=== PATIENT | female | born 1980 | race African-American/Black ===

== ENCOUNTER 2016-10-08 18:47 | Emergency (ER) | payer MEDICAID ==
--- NOTE | 2016-10-08 19:58 | ER Document Report ---
ED Medical Screen (RME) - General Chief Complaint: Sore Throat Stated Complaint: SORE THROAT Time seen by provider: 19:56 Mode of Arrival: Ambulatory Information source: Patient Notes: 36-year-old female presents to ED for sore throat fevers. States she's coughed up a lot of phlegm. Lungs are clear pulses regular.. I have greeted and performed a rapid initial assessment of this patient. A comprehensive ED assessment and evaluation of the patient, analysis of test results and completion of medical decision making process will be conducted by an additional ED providers. TRAVEL OUTSIDE OF THE [place] IN LAST 30 DAYS: No - Related Data Allergies/Adverse Reactions: No Known Allergies Allergy (Verified 08/20/16 17:57) Past Medical History Endocrine Medical History: Reports: Hx Diabetes Mellitus Type 2 - Gestational Musculoskeltal Medical History: Reports Hx Musculoskeletal Trauma - hip pelvic femur coccyx fracture Psychiatric Medical History: Reports: Hx Anxiety, Hx Depression Traumatic Medical History: Reports: Hx Fractures - hip pelvic femur coccyx Past Surgical History: Reports: Hx Section - Immunizations Immunizations up to date: Yes Hx Diphtheria, Pertussis, Tetanus Vaccination: Yes Physical Exam - Vital signs Vitals: Temp Pulse Resp BP Pulse Ox 98.1 F 85 16 141/89 H 98 10/08/16 19:40 10/08/16 19:40 10/08/16 19:40 10/08/16 19:40 10/08/16 19:40 Course - Vital Signs Vital signs: Temp Pulse Resp BP Pulse Ox 98.1 F 85 16 141/89 H 98 10/08/16 19:40 10/08/16 19:40 10/08/16 19:40 10/08/16 19:40 10/08/16 19:40
--- NOTE | 2016-10-08 22:33 | ER Document Report ---
HPI - HPI Patient complains to provider of: sore throat, myalgias Onset: Yesterday Onset/Duration: Gradual Quality of pain: Achy Pain Level: 3 Context: 36 yo female with sore throat, myalgias, fever. Rapid strept from triage is positive. Associated Symptoms: None Exacerbated by: Denies Relieved by: Denies Similar symptoms previously: Yes Recently seen / treated by doctor: No - ROS ROS below otherwise negative: Yes Systems Reviewed and Negative: Yes All other systems reviewed and negative - REPRODUCTIVE LMP: 10-06-16 Reproductive: DENIES: : - DERM Skin Color: Normal Past Medical History - General Information source: Patient - Social History Smoking Status: Current Every Day Smoker Chew tobacco use (# tins/day): No Frequency of alcohol use: Occasional Drug Abuse: None Lives with: Family Family History: Arthritis, CVA, Hyperlipidemia Patient has suicidal ideation: No Patient has homicidal ideation: No Endocrine Medical History: Reports: Hx Diabetes Mellitus Type 2 - Gestational Renal/ Medical History: Denies: Hx Peritoneal Dialysis Musculoskeltal Medical History: Reports Hx Musculoskeletal Trauma - hip pelvic femur coccyx fracture Psychiatric Medical History: Reports: Hx Anxiety, Hx Depression Traumatic Medical History: Reports: Hx Fractures - hip pelvic femur coccyx Past Surgical History: Reports: Hx Section - Immunizations Immunizations up to date: Yes Hx Diphtheria, Pertussis, Tetanus Vaccination: Yes Vertical Provider Document - CONSTITUTIONAL Agree With Documented VS: Yes Exam Limitations: No Limitations General Appearance: No Apparent Distress - INFECTION CONTROL TRAVEL OUTSIDE OF THE [place] IN LAST 30 DAYS: No - HEENT HEENT: Normocephalic, Pharyngeal Erythema. negative: Conjuctival Injection, Tympanic Membrane Red, Tympanic Membrane Bulging - NECK Neck: Supple. negative: Lymphadenopathy-Left, Lymphadenopathy-Right - RESPIRATORY Respiratory: Breath Sounds Normal, No Respiratory Distress O2 Sat by Pulse Oximetry: 98 - CARDIOVASCULAR Cardiovascular: Regular Rate, Regular Rhythm - GI/ABDOMEN Gastrointestinal: Abdomen Soft, Abdomen Non-Tender, No Organomegaly - MUSCULOSKELETAL/EXTREMETIES Musculoskeletal/Extremeties: ANU PEÑA - NEURO Level of Consciousness: Awake, Alert - DERM Integumentary: Warm, Dry, No Rash Course - Re-evaluation Re-evalutation: 10/08/16 22:39 vitals stable at discharge/. - Vital Signs Vital signs: Temp Pulse Resp BP Pulse Ox 98.1 F 85 16 141/89 H 98 10/08/16 19:40 10/08/16 19:40 10/08/16 19:40 10/08/16 19:40 10/08/16 19:40 Discharge - Discharge Clinical Impression: Streptococcal sore throat, Myalgia Condition: Good Disposition: HOME, SELF-CARE Instructions: Penicillin V K ([facility]), Strep Throat ([facility]), Stop Smoking ([facility]) Additional Instructions: quit smoking take the antibiotics until they are gone drink plenty of fluids tylenol for aches, fever to er if worse see [facility] for follow up Prescriptions: Penicillin V Potassium [Penicillin Vk 500 mg Tablet] 500 mg PO TID #30 tablet
[2016-10-08] MEDS ORDERED: PENICILLIN V POTASSIUM 500 MG TABLET PO ONE (22:40)
[2016-10-08 22:41] VITALS: BP 138/83
== END 2016-10-08 23:11 | disposition home or self-care (01) ==
LOC: ER 18:47
DX: J02.0 Streptococcal pharyngitis (principal); M79.1 Myalgia; R50.9 Fever, unspecified; F17.200 Nicotine dependence, unspecified, uncomplicated
CPT/HCPCS: 99283; 87880; J3490

== ENCOUNTER 2016-12-16 15:19 | Emergency (ER) | payer MEDICAID, OTHER ==
[2016-12-16] MEDS ORDERED: IBUPROFEN 800 MG TABLET PO ONE (17:35)
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
[2016-12-16 18:16] VITALS: BP 133/80
== END 2016-12-16 18:14 | disposition home or self-care (01) ==
LOC: ER 15:19
DX: M54.2 Cervicalgia (principal); R03.0 Elevated blood-pressure reading, without diagnosis of hypertension; R51 Headache; M54.9 Dorsalgia, unspecified; V87.7XXA Person injured in collision between other specified motor vehicles (traffic), initial encounter; F17.210 Nicotine dependence, cigarettes, uncomplicated
CPT/HCPCS: 99283; J3490

== ENCOUNTER 2017-01-25 23:45 | Emergency (ER) | payer MEDICAID | END 2017-01-25 23:51 | disposition left against medical advice (07) | LOC: ER 23:45 | DX: Z53.21 Procedure and treatment not carried out due to patient leaving prior to being seen by health care provider (principal) ==

== ENCOUNTER 2017-01-27 13:32 | Emergency (ER) | payer MEDICAID ==
[2017-01-27] MEDS ORDERED: BUPIVACAINE HCL 0.5 % INJ/PF 30 ML SDV INJ ONE (14:33)
--- NOTE | 2017-01-27 15:09 | ER Document Report ---
HPI - HPI Patient complains to provider of: jaw pain Pain Level: 5 Context: There is a 36-year-old female presents emergency department complaining of jaw pain. Patient had 3 wisdom teeth removed today complaining of severe jaw pain. Patient states that she was not sent home with any narcotic pain medication and was told to take Motrin [id number]. Patient states that as the numbing medication is wearing oxygen experiencing severe pain in the upper left aspect of her left jaw. She states she called her dentist office who said that they could not call her in any pain medications but would be able to see her tomorrow at 3 PM. teeth numbers 16, 17, and 32 were pulled. - REPRODUCTIVE LMP: 01/04/17 Reproductive: DENIES: : - DERM Skin Color: Normal Past Medical History - Social History Smoking Status: Current Every Day Smoker Chew tobacco use (# tins/day): No Frequency of alcohol use: Rare Drug Abuse: None Family History: Arthritis, CVA, Hyperlipidemia Patient has suicidal ideation: No Patient has homicidal ideation: No Endocrine Medical History: Reports: Hx Diabetes Mellitus Type 2 - Gestational Renal/ Medical History: Denies: Hx Peritoneal Dialysis Musculoskeltal Medical History: Reports Hx Musculoskeletal Trauma - hip pelvic femur coccyx fracture Psychiatric Medical History: Reports: Hx Anxiety, Hx Depression Traumatic Medical History: Reports: Hx Fractures - hip pelvic femur coccyx Past Surgical History: Reports: Hx Section - Immunizations Immunizations up to date: Yes Hx Diphtheria, Pertussis, Tetanus Vaccination: Yes Vertical Provider Document - CONSTITUTIONAL Agree With Documented VS: Yes Exam Limitations: No Limitations General Appearance: WD/WN, No Apparent Distress - INFECTION CONTROL TRAVEL OUTSIDE OF THE [place] IN LAST 30 DAYS: No - HEENT HEENT: Atraumatic, Normocephalic, PERRLA Mouth Diagram: 1 - socket without bleeding, clot intact no evidence of pus. 2 - socket without bleeding, clot intact no evidence of pus. 3 - socket without bleeding, clot intact no evidence of pus. Notes: Uvula midline. Airway patent. No evidence of tonsillar enlargement, peritonsillar abscess, retropharyngeal abscess. - NECK Neck: Normal Inspection, Other - No evidence of Yosvany's angina. negative: Lymphadenopathy-Left, Lymphadenopathy-Right - RESPIRATORY Respiratory: Breath Sounds Normal, No Respiratory Distress, Chest Non-Tender O2 Sat by Pulse Oximetry: 97 - CARDIOVASCULAR Cardiovascular: Regular Rate, Regular Rhythm, No Murmur - NEURO Level of Consciousness: Awake, Alert, Appropriate Motor/Sensory: No Motor Deficit, No Sensory Deficit - DERM Integumentary: Warm, Dry, No Rash Course - Re-evaluation Re-evalutation: 01/27/17 16:40 Patient is a 36-year-old female who is hemodynamic stable, mild distress and afebrile. Patient received a 2 cc Sensorcaine block with resolution of her symptoms. No complications. Patient discharged home with Motrin and will follow up with dentist tomorrow - Vital Signs Vital signs: Temp Pulse Resp BP Pulse Ox 98.3 F 99 18 124/79 97 01/27/17 13:45 01/27/17 13:45 01/27/17 13:45 01/27/17 13:45 01/27/17 13:45 Procedures - Additional Procedures dental block Additional Procedures: Other - dental block: left upper jaw infraalveolar block , 2cc sensorcaine with complete resolution of her symptoms, no complications Discharge - Discharge Clinical Impression: Jaw pain Condition: Good Disposition: HOME, SELF-CARE Additional Instructions: Please be sure to follow up with your dentist tomorrow Take medication as prescribed Prescriptions: Tramadol HCl 50 mg PO Q6HP PRN #5 tablet PRN Reason: Ibuprofen [Motrin 800 mg Tablet] 800 mg PO Q8H PRN #15 tab PRN Reason: Referrals: CESILIA MENDOSA MD [Primary Care Provider] - Follow up as needed
[2017-01-27 15:15] VITALS: BP 128/72
== END 2017-01-27 15:10 | disposition home or self-care (01) ==
LOC: ER 13:32
PROC: 3E0T3BZ Introduction of Anesthetic Agent into Peripheral Nerves and Plexi, Percutaneous Approach (ICD-10-PCS; principal; 2017-01-27)
DX: R68.84 Jaw pain (principal); F17.200 Nicotine dependence, unspecified, uncomplicated; Z98.818 Other dental procedure status
CPT/HCPCS: 99282

== ENCOUNTER 2017-03-23 18:48 | Emergency (ER) | payer MEDICAID ==
--- NOTE | 2017-03-23 19:47 | ER Document Report ---
HPI - HPI Patient complains to provider of: Sore throat, urinary frequency, ear pain Onset: Other - Several days Onset/Duration: Sudden Pain Level: 0 Context: 36-year-old female complaining of sore throat for several days, urinary frequency, pain behind her right ear. She saw her primary care doctor who told her to take Robitussin that she had a upper respiratory infection. She has been told in the past that she needed a tonsillectomy.. No chest pain shortness of breath or cough. No abdominal pain. No dysuria. Associated Symptoms: None Exacerbated by: Denies Relieved by: Denies Similar symptoms previously: No Recently seen / treated by doctor: No - ROS ROS below otherwise negative: Yes Systems Reviewed and Negative: Yes All other systems reviewed and negative - REPRODUCTIVE Reproductive: DENIES: : - DERM Skin Color: Normal Past Medical History - General Information source: Patient - Social History Smoking Status: Current Every Day Smoker Frequency of alcohol use: None Drug Abuse: None Lives with: Family Family History: Arthritis, CVA, Hyperlipidemia Patient has suicidal ideation: No Patient has homicidal ideation: No - Medical History Medical History: Negative Endocrine Medical History: Reports: Hx Diabetes Mellitus Type 2 - Gestational Renal/ Medical History: Denies: Hx Peritoneal Dialysis Musculoskeltal Medical History: Reports Hx Musculoskeletal Trauma - hip pelvic femur coccyx fracture Psychiatric Medical History: Reports: Hx Anxiety, Hx Depression Traumatic Medical History: Reports: Hx Fractures - hip pelvic femur coccyx Past Surgical History: Reports: Hx Section - Immunizations Immunizations up to date: Yes Hx Diphtheria, Pertussis, Tetanus Vaccination: Yes Vertical Provider Document - CONSTITUTIONAL Agree With Documented VS: Yes Exam Limitations: No Limitations General Appearance: No Apparent Distress - INFECTION CONTROL TRAVEL OUTSIDE OF THE [place] IN LAST 30 DAYS: No - HEENT HEENT: Atraumatic, Pharyngeal Erythema. negative: Conjuctival Injection, Tympanic Membrane Red, Tympanic Membrane Bulging Notes: external ear non tender - NECK Neck: Supple. negative: Lymphadenopathy-Left, Lymphadenopathy-Right - RESPIRATORY Respiratory: Breath Sounds Normal, No Respiratory Distress O2 Sat by Pulse Oximetry: 99 - CARDIOVASCULAR Cardiovascular: Regular Rate, Regular Rhythm - GI/ABDOMEN Gastrointestinal: Abdomen Soft, Abdomen Non-Tender, No Organomegaly - MUSCULOSKELETAL/EXTREMETIES Musculoskeletal/Extremeties: ANU PEÑA - NEURO Level of Consciousness: Awake, Alert, Appropriate - DERM Integumentary: Warm, Dry, No Rash Course - Re-evaluation Re-evalutation: 03/23/17 20:17 wbc in urine, trace bacteria, culture pending, throat culture pending - Vital Signs Vital signs: Temp Pulse Resp BP Pulse Ox 98.2 F 98 18 122/77 99 03/23/17 18:51 03/23/17 18:51 03/23/17 18:51 03/23/17 18:51 03/23/17 18:51 Discharge - Discharge Clinical Impression: Sore throat, Urinary tract infection Condition: Good Disposition: HOME, SELF-CARE Instructions: Sore Throat ([facility]), Urinary Tract Infection ([facility]), Cephalexin ([facility] ) Additional Instructions: plenty of fluids to er if worse urine culture pending throat culture is pending Please complete the patient satisfaction survey if you get one, and return it.. If you do not receive a survey, then you can go to the [facility] website, [email or web address] and place your comments about your very good care. Thank you very much. It was a pleasure being your medical provider today. Prescriptions: Cephalexin Monohydrate [Keflex 500 mg Capsule] 500 mg PO QID #40 capsule Referrals: CESILIA MENDOSA MD [Primary Care Provider] - Follow up in 3-5 days
[2017-03-23 20:12] LABS: APPEARANCE,URINE CLOUDY; BILIRUBIN,URINE NEGATIVE (NEGATIVE); GLUCOSE, URINE NEGATIVE (NEGATIVE); KETONES,URINE NEGATIVE (NEGATIVE); LEUKOCYTE ESTERASE,URINE LARGE (NEGATIVE); NITRITE,URINE NEGATIVE (NEGATIVE); PROTEIN,URINE NEGATIVE (NEGATIVE); URINE SPECIFIC GRAVITY 1.024; UROBILINOGEN,URINE NEGATIVE mg/dL (<2.0)
[2017-03-23 20:25] VITALS: BP 120/83
== END 2017-03-23 20:25 | disposition home or self-care (01) ==
LOC: ER 18:48
DX: J02.9 Acute pharyngitis, unspecified (principal); N39.0 Urinary tract infection, site not specified; R35.0 Frequency of micturition; F17.200 Nicotine dependence, unspecified, uncomplicated; H92.01 Otalgia, right ear
CPT/HCPCS: 81001; 87070; 87086; 87088; 99283

== ENCOUNTER 2017-03-28 11:58 | Emergency (ER) | payer MEDICAID ==
[2017-03-28 12:16] VITALS: BP 136/99
[2017-03-28] MEDS ORDERED: CIPROFLOXACIN HCL/DEXAMETH OTIC DROP 7.5 ML AS ONE (12:54)
[2017-03-28] MEDS ORDERED: METHYLPREDNISOLONE INJ 125 MG/2 ML SDV IM ONE (13:03)
--- NOTE | 2017-03-28 13:03 | ER Document Report ---
HPI - HPI Pain Level: 5 Notes: Patient is a 36-year-old female presents the ED complaining of bilateral ear pain and swelling 1 week. Patient was seen about 5 days ago here in the ED and was given Keflex for UTI. Patient states that she was at urgent care yesterday because of ear pain and sore throat and they gave her hydrocodone along with 1 g of Rocephin and a prescription for antibiotics that she was unable to pickle pumper because it was stuck on the computer per patient at the pharmacy late at night. Patient states that she has not noticed any discharge from her ears. The pain does not radiate. She still able to eat and drink without any difficulties, but does have discomfort with swallowing. Denies any drug allergies, daily medications, significant past medical history otherwise. Denies any MRSA history patient admits to smoking but denies any illicit drug use. Denies any recent travel, illness, sick contacts. Denies any fever, headache, nasal congestion/discharge, facial swelling, drooling, chest pain, palpitations, syncope, cough, wheeze, shortness of breath, abdominal pain, nausea/vomiting/diarrhea, dysuria, hematuria, joint pains, numbness/tingling, rash. - ROS Notes: REVIEW OF SYSTEMS: CONSTITUTIONAL : Denies fever, chills, or sweats. Denies recent illness. EENT: see hpi CARDIOVASCULAR: Denies chest pain. Denies palpitations or racing or irregular heart beat. Denies ankle edema. RESPIRATORY: Denies cough, cold, or chest congestion. Denies shortness of breath, difficulty breathing, or wheezing. GASTROINTESTINAL: Denies abdominal pain or distention. Denies nausea, vomiting , or diarrhea. Denies blood in vomitus, stools, or per rectum. Denies black, tarry stools. Denies constipation. GENITOURINARY: Denies difficulty urinating, painful urination, burning, frequency, blood in urine, or discharge. MUSCULOSKELETAL: Denies back or neck pain or stiffness. Denies joint pain or swelling. SKIN: Denies rash, lesions or sores. NEUROLOGICAL: Denies confusion or altered mental status. Denies passing out or loss of consciousness. Denies dizziness or lightheadedness. Denies headache. Denies weakness or paralysis or loss of use of either side. Denies problems with gait or speech. Denies sensory loss, numbness, or tingling. ALL OTHER SYSTEMS REVIEWED AND NEGATIVE. Dictation was performed using [employer] voice recognition software - REPRODUCTIVE Reproductive: DENIES: : - DERM Skin Color: Normal Past Medical History - Social History Smoking Status: Current Every Day Smoker Family History: Arthritis, CVA, Hyperlipidemia Endocrine Medical History: Reports: Hx Diabetes Mellitus Type 2 - Gestational Renal/ Medical History: Denies: Hx Peritoneal Dialysis Musculoskeltal Medical History: Reports Hx Musculoskeletal Trauma - hip pelvic femur coccyx fracture Psychiatric Medical History: Reports: Hx Anxiety, Hx Depression Traumatic Medical History: Reports: Hx Fractures - hip pelvic femur coccyx Past Surgical History: Reports: Hx Section - Immunizations Immunizations up to date: Yes Hx Diphtheria, Pertussis, Tetanus Vaccination: Yes Vertical Provider Document - CONSTITUTIONAL Agree With Documented VS: Yes Notes: PHYSICAL EXAMINATION: GENERAL: Well-appearing, well-nourished and in no acute distress. HEAD: Atraumatic, normocephalic. EYES: Pupils equal round and reactive to light, extraocular movements intact, sclera anicteric, conjunctiva are normal. ENT: B/l EAC swollen with purulent discharge, + tenderness. Unable to visualize TM's b/l. Nares patent and without discharge. oropharynx clear without exudates. 1+ tonsilar hypertrophy with mild erythema, no exudate. Moist mucous membranes. No sinus tenderness. No facial swelling. Uvula midline. No palatine shift or tongue protrusion. NECK: Normal range of motion, supple without lymphadenopathy. No rigidity/ meningismus. LUNGS: Breath sounds clear to auscultation bilaterally and equal. No wheezes rales or rhonchi. HEART: Regular rate and rhythm without murmurs, rubs, gallops. ABDOMEN: Soft, nontender, nondistended abdomen. No guarding, no rebound. No masses appreciated. Normal bowel sounds present. No CVA tenderness bilaterally. No hepatosplenomegaly. Extremities: No cyanosis, clubbing, or edema b/l. Peripheral pulses 2+. Capillary refill less than 3 seconds. NEUROLOGICAL: Cranial nerves grossly intact. Normal speech, normal gait. Normal sensory, motor exams PSYCH: Normal mood, normal affect. SKIN: Warm, Dry, normal turgor, no rashes or lesions noted. - INFECTION CONTROL TRAVEL OUTSIDE OF THE [place] IN LAST 30 DAYS: No - RESPIRATORY O2 Sat by Pulse Oximetry: 99 Course - Re-evaluation Re-evalutation: 03/28/17 13:30 Patient is an afebrile, well-hydrated, 36-year-old female presents the ED with acute bilateral otitis externa along with acute strep pharyngitis. Vitals are stable. PE otherwise unremarkable. Low suspicion for any retropharyngeal/ peritonsillar abscess, meningitis, airway compromise, leona's, mastoiditis, intracranial hemorrhage, or other emergent systemic infection at this time. Wick placement and Ciprodex was applied bilaterally. Solumedrol 125mg given IM today. Rapid strep was positive. I will send her home with Amoxicillin 875mg PO BID x10 days (will help cover the ears as well). Conservative measures for symptoms otherwise. Use drops as directed. Recheck with your PCM this week. Consider consult with ENT for ongoing/worsening symptoms. Return to the ED with any worsening/concerning symptoms otherwise as reviewed in discharge. Patient is in agreement. - Vital Signs Vital signs: Temp Pulse Resp BP Pulse Ox 97.7 F 96 136/99 H 99 03/28/17 12:15 03/28/17 12:15 03/28/17 12:15 03/28/17 12:15 Discharge - Discharge Clinical Impression: Strep pharyngitis Acute otitis externa of both ears Qualifiers: Otitis externa type: unspecified type Qualified Code(s): H60.503 - Unspecified acute noninfective otitis externa, bilateral Condition: Stable Disposition: HOME, SELF-CARE Instructions: Acetaminophen, Use of Ear Drops ([facility]), Using Ear Drops with a Wick ([facility]), Otitis Externa ([facility]), Strep Throat ([facility]) Additional Instructions: Maintain adequate fluid intake Take/use meds as directed tylenol/ibuprofen as needed over the counter cold medication as needed for symptoms avoid putting q-tips/fingers in ears F/u: with your PCM in 2-3 days for a recheck Consider consult with ENT for ongoing/worsening symptoms Return to the ED with any worsening symptoms and/or development of fever, headache, facial swelling, swelling of lips/tongue/throat, trouble swallowing, chest pain, palpitations, syncope, shortness of breath, trouble breathing, abdominal pain, n/v/d, numbness/tingling, or other worsening symptoms that are concerning to you. [facility] [place] Address: [address] [place] [address] Prescriptions: Amoxicillin Trihydrate [Amoxil 875 mg Tablet] 1 tab PO BID #20 tablet Forms: Elevated Blood Pressure, Smoking Cessation Education Referrals: VANITA JAEGER MD [ACTIVE STAFF] - Follow up as needed CESILIA MENDOSA MD [Primary Care Provider] - Follow up in 3-5 days
== END 2017-03-28 13:40 | disposition home or self-care (01) ==
LOC: ER 11:58
DX: J02.0 Streptococcal pharyngitis (principal); H60.503 Unspecified acute noninfective otitis externa, bilateral; F17.200 Nicotine dependence, unspecified, uncomplicated
CPT/HCPCS: 99283; 96372; 87880; J2930; J3490

== ENCOUNTER 2017-05-18 13:41 | Emergency (ER) | payer MEDICAID ==
--- NOTE | 2017-05-18 14:30 | ER Document Report ---
HPI - HPI Patient complains to provider of: sinus pain and nose drainage Onset: Other - 2 weeks Onset/Duration: Gradual, Persistent Pain Level: 2 Context: 37-year-old female complaining of increased sinus pressure along the maxillary sinuses with yellow-green nasal discharge for 2 weeks. She was on Ceftin near several weeks ago which did not help. no chest pain or shortness of breath. No fever. Her ears feel full. Associated Symptoms: None Exacerbated by: Denies Relieved by: Denies Similar symptoms previously: No Recently seen / treated by doctor: No - ROS ROS below otherwise negative: Yes Systems Reviewed and Negative: Yes All other systems reviewed and negative - CARDIOVASCULAR Cardiovascular: DENIES: Chest pain - REPRODUCTIVE Reproductive: DENIES: : - DERM Skin Color: Normal Past Medical History - General Information source: Patient - Social History Smoking Status: Current Every Day Smoker Chew tobacco use (# tins/day): No Frequency of alcohol use: Occasional Drug Abuse: None Family History: Arthritis, CVA, Hyperlipidemia Endocrine Medical History: Reports: Hx Diabetes Mellitus Type 2 - Gestational Renal/ Medical History: Denies: Hx Peritoneal Dialysis Musculoskeltal Medical History: Reports Hx Musculoskeletal Trauma - hip pelvic femur coccyx fracture Psychiatric Medical History: Reports: Hx Anxiety, Hx Depression Traumatic Medical History: Reports: Hx Fractures - hip pelvic femur coccyx Past Surgical History: Reports: Hx Section - Immunizations Immunizations up to date: Yes Hx Diphtheria, Pertussis, Tetanus Vaccination: Yes Vertical Provider Document - CONSTITUTIONAL Agree With Documented VS: Yes Exam Limitations: No Limitations - INFECTION CONTROL TRAVEL OUTSIDE OF THE [place] IN LAST 30 DAYS: No - HEENT HEENT: Normocephalic. negative: Conjuctival Injection, Pharyngeal Erythema, Tympanic Membrane Red, Tympanic Membrane Bulging Notes: boggy nares, no facial swelling - NECK Neck: Supple. negative: Lymphadenopathy-Left, Lymphadenopathy-Right - RESPIRATORY Respiratory: Breath Sounds Normal, No Respiratory Distress O2 Sat by Pulse Oximetry: 100 - CARDIOVASCULAR Cardiovascular: Regular Rate, Regular Rhythm - MUSCULOSKELETAL/EXTREMETIES Musculoskeletal/Extremeties: ANU PEÑA - NEURO Level of Consciousness: Awake, Alert, Appropriate Motor/Sensory: No Motor Deficit, No Sensory Deficit - DERM Integumentary: Warm, Dry Course - Vital Signs Vital signs: Temp Pulse Resp BP Pulse Ox 98.4 F 95 16 122/64 100 05/18/17 14:00 05/18/17 14:00 05/18/17 14:00 05/18/17 14:00 05/18/17 14:00 Discharge - Discharge Clinical Impression: Sinusitis Qualifiers: Sinusitis location: maxillary Chronicity: subacute Qualified Code(s): J01.00 - Acute maxillary sinusitis, unspecified Condition: Good Disposition: HOME, SELF-CARE Instructions: Augmentin ([facility]), ENT, Sinusitis ([facility]) Additional Instructions: get netti pot and use sterile saline to irrigate out sinus STOP SMOKING see ENT doctor for chronic sinus infection to er if worse Please complete the patient satisfaction survey if you get one, and return it.. If you do not receive a survey, then you can go to the [facility] website, [email or web address] and place your comments about your very good care. Thank you very much. It was a pleasure being your medical provider today. Prescriptions: Amox Tr/Potassium Clavulanate [Augmentin 875-125 mg Tablet] 1 tab PO BID #20 tablet
[2017-05-18 15:18] VITALS: BP 122/70
== END 2017-05-18 15:15 | disposition home or self-care (01) ==
LOC: ER 13:41
DX: J01.00 Acute maxillary sinusitis, unspecified (principal); F17.200 Nicotine dependence, unspecified, uncomplicated
CPT/HCPCS: 99283

== ENCOUNTER 2017-07-04 13:57 | Emergency (ER) | payer MEDICAID ==
[2017-07-04 14:08] VITALS: BP 104/74
[2017-07-04] MEDS ORDERED: LIDOCAINE 5% (700 MG) TRANSDERMAL ADH..PATCH TP ONE (15:02)
[2017-07-04] MEDS ORDERED: DEXAMETHASONE SOD PHOS INJ 10 MG/1 ML VIAL IM ONE (15:02)
[2017-07-04] MEDS ORDERED: KETOROLAC TROMETHAMINE INJ/PF 30 MG/1 ML SDV IM ONE (15:02)
--- NOTE | 2017-07-04 15:04 | ER Document Report ---
HPI - HPI Pain Level: 5 Notes: Patient is a 37-year-old female who presents the ED with low back pain 5-7 days without known injury. Patient states that on occasion she will have radiation of the pain into her legs bilaterally. Patient states that most of her pain is midline with some paraspinal pain as well. [facility] ordered for her to get done this week. Patient was also evaluated by an urgent care on Wednesday and was given ibuprofen. Patient states that the ibuprofen has not been helping. Patient states that sitting or standing too long make her pain worse. She has not found a position that helps. Patient denies any IV drug use, injections or procedures to her back, or diabetes. She denies any drug allergies. Patient admits to smoking. Denies any headache, fever, chest pain, palpitations, syncope, cough, shortness of breath, wheeze, dyspnea, abdominal pain, nausea/ vomiting/diarrhea, urinary retention, dysuria, hematuria, loss of control of bowel or bladder, numbness/tingling, saddle anesthesia, muscle paralysis/ weakness, or rash. - ROS Notes: REVIEW OF SYSTEMS: CONSTITUTIONAL : Denies fever, chills, or sweats. Denies recent illness. EENT: Denies eye, ear, throat, or mouth pain or symptoms. Denies nasal or sinus congestion or discharge. Denies throat, tongue, or mouth swelling or difficulty swallowing. CARDIOVASCULAR: Denies chest pain. Denies palpitations or racing or irregular heart beat. Denies ankle edema. RESPIRATORY: Denies cough, cold, or chest congestion. Denies shortness of breath, difficulty breathing, or wheezing. GASTROINTESTINAL: Denies abdominal pain or distention. Denies nausea, vomiting , or diarrhea. Denies blood in vomitus, stools, or per rectum. Denies black, tarry stools. Denies constipation. GENITOURINARY: Denies difficulty urinating, painful urination, burning, frequency, blood in urine, or discharge. MUSCULOSKELETAL: see hpi SKIN: Denies rash, lesions or sores. NEUROLOGICAL: Denies confusion or altered mental status. Denies passing out or loss of consciousness. Denies dizziness or lightheadedness. Denies headache. Denies weakness or paralysis or loss of use of either side. Denies problems with gait or speech. Denies sensory loss, numbness, or tingling. ALL OTHER SYSTEMS REVIEWED AND NEGATIVE. Dictation was performed using [employer] voice recognition software - REPRODUCTIVE Reproductive: DENIES: : - DERM Skin Color: Normal Past Medical History - Social History Smoking Status: Current Every Day Smoker Family History: Arthritis, CVA, Hyperlipidemia Patient has suicidal ideation: No Patient has homicidal ideation: No Endocrine Medical History: Reports: Hx Diabetes Mellitus Type 2 - Gestational Renal/ Medical History: Denies: Hx Peritoneal Dialysis Musculoskeltal Medical History: Reports Hx Musculoskeletal Trauma - hip pelvic femur coccyx fracture Psychiatric Medical History: Reports: Hx Anxiety, Hx Depression Traumatic Medical History: Reports: Hx Fractures - hip pelvic femur coccyx Past Surgical History: Reports: Hx Section - Immunizations Immunizations up to date: Yes Hx Diphtheria, Pertussis, Tetanus Vaccination: Yes Vertical Provider Document - CONSTITUTIONAL Agree With Documented VS: Yes Notes: PHYSICAL EXAMINATION: GENERAL: Well-appearing, well-nourished and in no acute distress. LUNGS: Breath sounds clear to auscultation bilaterally and equal. No wheezes rales or rhonchi. HEART: Regular rate and rhythm without murmurs, rubs, gallops. ABDOMEN: Soft, nontender, nondistended abdomen. No guarding, no rebound. No masses appreciated. Normal bowel sounds present. No CVA tenderness bilaterally. No pulsatile mass. Musculoskeletal: Ext b/l: FROM to passive/active. Strength 5+/5. No deficits noted. Back: FROM to passive/active. Strength 5+/5. No stepoffs, or deformities. No other bony tenderness or ecchymosis. SLR negative b/l. + L-paraspinal mm tenderness with mild spasming. + mild midline/facet tenderness near L4. Extremities: No cyanosis, clubbing, or edema b/l. Peripheral pulses 2+. Capillary refill less than 2 seconds. NEUROLOGICAL: Normal speech, normal gait. Normal sensory, motor exams. Reflexes 2+ b/l. PSYCH: Normal mood, normal affect. SKIN: Warm, Dry, normal turgor, no rashes or lesions noted. - INFECTION CONTROL TRAVEL OUTSIDE OF THE [place] IN LAST 30 DAYS: No - RESPIRATORY O2 Sat by Pulse Oximetry: 98 Course - Re-evaluation Re-evalutation: 07/04/17 15:42 Patient is an afebrile, well-hydrated, 37-year-old female who presents the ED with low back pain, suspect strain versus sprain at this time. Vitals are stable. PE is otherwise unremarkable for any focal neurological deficits. X- ray was also unremarkable for any acute pathology. Decadron 10 mg, Toradol 30 mg, and a Lidoderm patch was applied today. Low suspicion for any meningitis, fracture, expanding/ruptured AAA, cauda equina syndrome, epidural mass lesion/ abscess, herniated disc causing severe spinal stenosis, or other systemic infection at this time. Patient is aware that her condition can change from initial presentation and that she needs monitor symptoms closely for any acute changes. I will send her home with a prescription for naproxen and baclofen to take as directed. Conservative measures for symptoms otherwise. Recheck with your PCM in 3-5 days. Consider consult with orthopedics and physical therapy. Return to the ED with any worsening/concerning symptoms otherwise as reviewed in discharge. Patient is in agreement. - Vital Signs Vital signs: Temp Pulse Resp BP Pulse Ox 97.9 F 99 16 104/74 98 07/04/17 14:04 07/04/17 14:04 07/04/17 14:04 07/04/17 14:04 07/04/17 14:04 Discharge - Discharge Clinical Impression: Low back pain Qualifiers: Chronicity: acute Back pain laterality: unspecified Sciatica presence: unspecified whether sciatica present Qualified Code(s): M54.5 - Low back pain Condition: Stable Disposition: HOME, SELF-CARE Instructions: Low Back Pain ([facility]), Ice Packs ([facility]), Warm Packs ([facility]), Muscle Strain ([facility]), Stretching Exercises for the Back ([facility]) Additional Instructions: Rest, Ice Tylenol/ibuprofen as needed Light stretches daily Healthy diet & exercise helps as well as any weight loss as it will ease the load off your bones/joints Moist heat and massage may help F/u with your PCP in 3-5 days for a recheck Consider consult(s) with Orthopedics/physical therapy for ongoing/worsening symptoms Return to the ED with any worsening symptoms and/or development of fever, headache, chest pain, palpitations, syncope, shortness of breath, trouble breathing, abdominal pain, n/v/d, blood in stool/urine, loss of control of bowel /bladder, urinary retention, muscle weakness/paralysis, saddle anesthesia, numbness/tingling, or other worsening symptoms that are concerning to you. Prescriptions: Baclofen [Baclofen 10 mg Tablet] 5 mg PO BID PRN #10 tablet PRN Reason: Naproxen 500 mg PO BID PRN #30 tablet PRN Reason: Referrals: [facility] [Provider Group] - Follow up as needed [facility] [Provider Group] - Follow up in 3-5 days
--- NOTE | 2017-07-04 15:27 | RADIOLOGY REPORT (SQ) ---
EXAM DESCRIPTION: L SPINE WHOLE COMPLETED DATE/TIME: 07/04/2017 3:12 pm REASON FOR STUDY: low back pain COMPARISON: None. NUMBER OF VIEWS: Five views including obliques. TECHNIQUE: AP, lateral, oblique, and sacral radiographic images acquired of the lumbar spine. LIMITATIONS: None. FINDINGS: MINERALIZATION: Normal. SEGMENTATION: Normal. No transitional anatomy. ALIGNMENT: Normal. VERTEBRAE: Maintained height. No fracture or worrisome bone lesion. DISCS: Preserved height. No significant osteophytes or end plate irregularity. POSTERIOR ELEMENTS: Pedicles and facets are intact. No pars defect or posterior arch defects. HARDWARE: None in the spine. PARASPINAL SOFT TISSUES: Normal. PELVIS: Intact as visualized. No fractures or worrisome bone lesions. SI joints intact. OTHER: No other significant finding. IMPRESSION: NORMAL 5 VIEW LUMBAR SPINE. TECHNICAL DOCUMENTATION: JOB ID: [id number] [employer]- All Rights Reserved
== END 2017-07-04 16:05 | disposition home or self-care (01) ==
LOC: ER 13:57
DX: M54.5 Low back pain (principal); F17.200 Nicotine dependence, unspecified, uncomplicated; Z87.81 Personal history of (healed) traumatic fracture; Z82.61 Family history of arthritis
CPT/HCPCS: 99283; 96372; 72110; J1885; J3490; J1100

== ENCOUNTER 2017-07-21 11:53 | Emergency (ER) | payer MEDICAID ==
[2017-07-21] MEDS ORDERED: IBUPROFEN 600 MG TABLET PO ONE (13:08)
[2017-07-21 14:10] LABS: APPEARANCE,URINE SLIGHTLY-CLOUDY; BILIRUBIN,URINE NEGATIVE (NEGATIVE); GLUCOSE, URINE NEGATIVE (NEGATIVE); KETONES,URINE NEGATIVE (NEGATIVE); LEUKOCYTE ESTERASE,URINE NEGATIVE (NEGATIVE); NITRITE,URINE NEGATIVE (NEGATIVE); PROTEIN,URINE NEGATIVE (NEGATIVE); URINE SPECIFIC GRAVITY 1.024
--- NOTE | 2017-07-21 14:23 | RADIOLOGY REPORT (SQ) ---
EXAM DESCRIPTION: PELVIS AP COMPLETED DATE/TIME: 07/21/2017 2:15 pm REASON FOR STUDY: pain COMPARISON: None. NUMBER OF VIEWS: One view TECHNIQUE: AP Pelvis LIMITATIONS: None. FINDINGS: MINERALIZATION: Normal. HIPS: No acute fracture or dislocation. No worrisome bone lesions. PELVIS AND SACRUM: No acute fracture or dislocation. No worrisome bone lesions. PUBIS AND ISCHIUM: No acute fracture. LOWER LUMBAR SPINE: No significant findings as visualized. SOFT TISSUES: No findings. OTHER: No other significant finding. IMPRESSION: NEGATIVE STUDY OF THE PELVIS. TECHNICAL DOCUMENTATION: JOB ID: [id number] [employer]- All Rights Reserved
--- NOTE | 2017-07-21 14:29 | ER Document Report ---
ED General - General Chief Complaint: Low Back Pain Stated Complaint: BACK PAIN Time Seen by Provider: 07/21/17 13:07 Notes: Patient reports the onset of low back pain. Is bilateral. It radiates down both legs. It is worse with movement and better with rest. It is constant. It is sharp. She denies any incontinence of urine or stool. No retention of urine or stool. No numbness tingling or paresthesias of the rectal vaginal or perineal areas. She is able to ambulate. Patient denies any abdominal pain. No vomiting or diarrhea. No fevers or rashes. TRAVEL OUTSIDE OF THE [place] IN LAST 30 DAYS: No - Related Data Allergies/Adverse Reactions: No Known Allergies Allergy (Verified 07/21/17 11:57) Past Medical History - Social History Smoking Status: Current Every Day Smoker Chew tobacco use (# tins/day): No Frequency of alcohol use: Occasional Drug Abuse: None Family History: Arthritis, CVA, Hyperlipidemia Patient has suicidal ideation: No Patient has homicidal ideation: No Endocrine Medical History: Reports: Hx Diabetes Mellitus Type 2 - Gestational Renal/ Medical History: Denies: Hx Peritoneal Dialysis Musculoskeltal Medical History: Reports Hx Musculoskeletal Trauma - hip pelvic femur coccyx fracture Psychiatric Medical History: Reports: Hx Anxiety, Hx Depression Traumatic Medical History: Reports: Hx Fractures - hip pelvic femur coccyx Past Surgical History: Reports: Hx Section - Immunizations Immunizations up to date: Yes Hx Diphtheria, Pertussis, Tetanus Vaccination: Yes Review of Systems - Review of Systems Constitutional: denies: Chills, Fever Cardiovascular: denies: Chest pain, Palpitations Respiratory: denies: Cough, Short of breath Genitourinary: denies: Dysuria, Incontinence -: Yes All other systems reviewed and negative Physical Exam - Vital signs Vitals: Temp Pulse Resp BP Pulse Ox 98.3 F 106 H 20 128/78 H 98 07/21/17 11:58 07/21/17 11:58 07/21/17 11:58 07/21/17 11:58 07/21/17 11:58 Interpretation: Hypertensive, Other - HR 88 on my exam - General General appearance: Appears well, Alert - HEENT Head: Normocephalic, Atraumatic Eyes: Normal Pupils: PERRL - Respiratory Respiratory status: No respiratory distress Chest status: Nontender Breath sounds: Normal Chest palpation: Normal - Cardiovascular Rhythm: Regular Heart sounds: Normal auscultation Murmur: No - Abdominal Inspection: Normal Distension: No distension Bowel sounds: Normal Tenderness: Nontender Organomegaly: No organomegaly - Back Back: Normal, Tender - bilat lower back tenderness to palp. inspection nml - Extremities General upper extremity: Normal inspection, Nontender, Normal color, Normal ROM , Normal temperature General lower extremity: Normal inspection, Nontender, Normal color, Normal ROM , Normal temperature, Normal weight bearing. No: Eloisa's sign - Neurological Neuro grossly intact: Yes Cognition: Normal Orientation: AAOx4 [place] Coma Scale Eye Opening: Spontaneous Tez Coma Scale Verbal: Oriented [place] Coma Scale Motor: Obeys Commands Tez Coma Scale Total: 15 Speech: Normal Motor strength normal: LUE, RUE, LLE, RLE Sensory: Normal - Psychological Associated symptoms: Normal affect, Normal mood - Skin Skin Temperature: Warm Skin Moisture: Dry Skin Color: Normal Course - Vital Signs Vital signs: Temp Pulse Resp BP Pulse Ox 98.3 F 106 H 20 128/78 H 98 07/21/17 11:58 07/21/17 11:58 07/21/17 11:58 07/21/17 11:58 07/21/17 11:58 - Laboratory Laboratory results interpreted by me: 07/21/17 13:28 Urine Urobilinogen 2.0 H - Diagnostic Test Radiology reviewed: Image reviewed, Reports reviewed - neg pelvis xray with no evidence of fx or dislocation Discharge - Discharge Clinical Impression: Low back pain Qualifiers: Chronicity: acute Back pain laterality: bilateral Sciatica presence: with sciatica Sciatica laterality: bilateral sciatica Qualified Code(s): M54.42 - Lumbago with sciatica, left side; M54.41 - Lumbago with sciatica, right side; M54.41 - Lumbago with sciatica, right side Condition: Stable Disposition: HOME, SELF-CARE Instructions: Low Back Pain ([facility]) Additional Instructions: Your blood pressure is mildly elevated. Please have this rechecked as soon as possible by your doctor Please call orthopedics as soon as possible to arrange an evaluation for your low back pain. Prescriptions: Tramadol HCl [Ultram] 50 mg PO Q6 PRN #14 tablet PRN Reason: Forms: Elevated Blood Pressure, Return to Work Referrals: GERARDO SHETH MD [ACTIVE STAFF] - Follow up in 1 week NANCI TURPIN MD [Primary Care Provider] - Follow up in 1 week
[2017-07-21 14:53] VITALS: BP 176/94
== END 2017-07-21 14:54 | disposition home or self-care (01) ==
LOC: ER 11:53
DX: M54.42 Lumbago with sciatica, left side (principal); M54.41 Lumbago with sciatica, right side; M54.5 Low back pain; F17.200 Nicotine dependence, unspecified, uncomplicated
CPT/HCPCS: 99283; 81025; 81001; 72170; J3490

== ENCOUNTER 2017-08-27 11:35 | Emergency (ER) | payer OTHER, MEDICAID ==
[2017-08-27] MEDS ORDERED: LIDOCAINE 5% (700 MG) TRANSDERMAL ADH..PATCH TP ONE (12:08)
--- NOTE | 2017-08-27 12:09 | ER Document Report ---
ED Neck/Back Problem - General Chief Complaint: Back Pain Stated Complaint: NECK PAIN Time Seen by Provider: 08/27/17 11:44 Mode of Arrival: Ambulatory Information source: Patient Notes: 37-year-old female presents to ED for complaint of back pain and muscle spasms. She states she has been going to [facility] they put on one anti-inflammatory muscle relaxer and it was not helping so they change the medications. She states she had a MRI done this month on the around the . She states she had a scheduled appointment to follow-up with the [facility] but he was sick and now she has an appointment on September 08. She states she is still having pain in her back. She denies any loss of control of bowel bladder. She denies any saddle anesthesia. She denies of any loss of sensation or muscle control to her legs. She does have some pain in the lower back across both buttocks and down the back of the legs. Her MRI does show that she has bulging disc at L5- S1. TRAVEL OUTSIDE OF THE [place] IN LAST 30 DAYS: No - HPI Patient complains to provider of: Pain, Lower back Onset: Other - Chronic Onset: Chronic Timing: Waxing and waning, Still present Quality of pain: Sharp Severity: Severe Pain Level: 5 Recent injury: No Associated symptoms: Like prior neck/back pain, Radiation to leg, Lower back pain. denies: Constipation - She does occasionally have constipation due to the her muscle relaxers., Incontinence, Motor loss, Numbness/tingling, Radiation to arm, Radiation to chest, Sensory loss, Unable to urinate, Upper back pain Relieved by: Nothing Similar symptoms previously: Yes Recently seen / treated by doctor: Yes - Related Data Allergies/Adverse Reactions: No Known Allergies Allergy (Verified 08/27/17 11:35) Past Medical History - General Information source: Patient - Social History Smoking Status: Current Every Day Smoker Cigarette use (# per day): Yes Smoking Education Provided: Yes - Total of 3 minutes Frequency of alcohol use: None Drug Abuse: None Family History: Arthritis, CVA, Hyperlipidemia. denies: CAD, COPD, DM, Hypertension, Malignancy, Thyroid Disfunction Patient has suicidal ideation: No Patient has homicidal ideation: No - Past Medical History Cardiac Medical History: Reports: None Pulmonary Medical History: Reports: None EENT Medical History: Reports: None Neurological Medical History: Reports: None Endocrine Medical History: Reports: Hx Diabetes Mellitus Type 2 - Gestational Renal/ Medical History: Reports: None Malignancy Medical History: Reports: None GI Medical History: Reports: None Musculoskeltal Medical History: Reports Hx Arthritis, Reports Hx Musculoskeletal Trauma - hip pelvic femur coccyx fracture Skin Medical History: Reports None Psychiatric Medical History: Reports: Hx Anxiety, Hx Bipolar Disorder, Hx Depression Traumatic Medical History: Reports: Hx Fractures - hip pelvic femur coccyx Infectious Medical History: Reports: None Past Surgical History: Reports: Hx Section - Immunizations Immunizations up to date: Yes Hx Diphtheria, Pertussis, Tetanus Vaccination: Yes Review of Systems - Review of Systems Constitutional: No symptoms reported EENT: No symptoms reported Cardiovascular: No symptoms reported Respiratory: No symptoms reported Gastrointestinal: No symptoms reported Genitourinary: No symptoms reported Female Genitourinary: No symptoms reported Musculoskeletal: Muscle pain, Muscle stiffness Skin: No symptoms reported Hematologic/Lymphatic: No symptoms reported Neurological/Psychological: No symptoms reported -: Yes All other systems reviewed and negative Physical Exam - Vital signs Vitals: Temp Pulse Resp BP Pulse Ox 97.8 F 94 18 128/81 H 100 08/27/17 11:39 08/27/17 11:39 08/27/17 11:39 08/27/17 11:39 08/27/17 11:39 Interpretation: Normal - General General appearance: Appears well, Alert - HEENT Head: Normocephalic, Atraumatic Eyes: Normal Pupils: PERRL - Respiratory Respiratory status: No respiratory distress Chest status: Nontender Breath sounds: Normal Chest palpation: Normal - Cardiovascular Rhythm: Regular Heart sounds: Normal auscultation Murmur: No - Abdominal Inspection: Normal Distension: No distension Bowel sounds: Normal Tenderness: Nontender Organomegaly: No organomegaly - Back Back: Normal, Nontender Notes: No signs or symptoms of cauda equina, negative leg lifts. Full range of motion of both legs back. No loss of control of bowel bladder, no loss of control of legs, no saddle anesthesia, no loss of sensation to the legs. She does have some burning to the proximal the buttocks and down the back of the legs. States it is much worse when she sits in her chair too long. - Extremities General upper extremity: Normal inspection, Nontender, Normal color, Normal ROM , Normal temperature General lower extremity: Normal inspection, Nontender, Normal color, Normal ROM , Normal temperature, Normal weight bearing. No: Eloisa's sign - Neurological Neuro grossly intact: Yes Cognition: Normal Orientation: AAOx4 [place] Coma Scale Eye Opening: Spontaneous Tez Coma Scale Verbal: Oriented [place] Coma Scale Motor: Obeys Commands [place] Coma Scale Total: 15 Speech: Normal Motor strength normal: LUE, RUE, LLE, RLE Sensory: Normal - Psychological Associated symptoms: Normal affect, Normal mood - Skin Skin Temperature: Warm Skin Moisture: Dry Skin Color: Normal Course - Re-evaluation Re-evalutation: 08/27/17 12:14 Patient will be treated with Lidoderm patch before being discharged and was given a prescription for Lidoderm patches. Patient is already on muscle relaxers and anti-inflammatories. [facility] with her [facility] results. Patient has had no new injury and no new symptoms. - Vital Signs Vital signs: Temp Pulse Resp BP Pulse Ox 97.9 F 84 18 130/83 H 98 08/27/17 12:16 08/27/17 12:16 08/27/17 11:39 08/27/17 12:16 08/27/17 12:16 Discharge - Discharge Clinical Impression: Low back pain Qualifiers: Chronicity: chronic Back pain laterality: bilateral Sciatica presence: with sciatica Sciatica laterality: bilateral sciatica Qualified Code(s): M54.42 - Lumbago with sciatica, left side HTN (hypertension) Qualifiers: Hypertension type: unspecified Qualified Code(s): I10 - Essential (primary) hypertension Condition: Stable Disposition: HOME, SELF-CARE Additional Instructions: LOW BACK PAIN: Three out of every four people will have an episode of disabling back pain during their lifetime. Most commonly the pain is due to straining of the muscles and ligaments in the low back. Usual treatment includes: (1) Rest on a firm surface. Avoid lying on your stomach. (2) Ice pack the painful area. After a few days, gentle heat may be used intermittently to relax the area, or ice packs can be continued. (3) Medication may be needed -- muscle relaxers and antiinflammatory medicines are commonly used. (4) As the back improves, exercises are prescribed to strengthen the back and abdominal muscles. Your doctor will advise you on the proper care for your back at each stage in your recovery. You may be better in a few days -- or healing may take several weeks. If new symptoms of a "herniated disc" (radiation of pain, numbness, or tingling down the back of the leg or weakness in the leg) occur, you should be re-examined. Further testing may be necessary. Anti-Inflammatory Medication You have received a prescription for an antiinflammatory agent. This is an excellent, safe drug for pain control. In addition, it has potent antiinflammatory effects which are beneficial, especially in the treatment of injuries, arthritis, or tendonitis. It's best to take this medicine with food. Persons with ulcer disease or allergy to aspirin should notify their physician of this before taking this drug. Take the medication exactly as prescribed. Don't take additional doses unless instructed to do so by your doctor. If you develop wheezing, shortness of breath, hives, faintness, stomach pain, vomiting, or dark black stools, return for re-evaluation at once. MUSCLE RELAXERS: Continue taking your muscle relaxer baclofen but remember that it can cause constipation and increase your fluid intake and use laxatives as needed Muscle relaxing medications are usually prescribed for acute muscle spasm or injury to the neck and back. They are often combined with antiinflammatory pain medication for increased relief. You may stop the muscle relaxer when the pain and stiffness have improved. Start the medication again if spasms recur. Muscle relaxers may cause drowsiness, especially with the first dose. Do not operate machinery or drive while under the effects of the medication. Most muscle relaxers last up to 24 hours. Do not combine the medication with alcohol. ICE PACKS: Apply ice packs frequently against the painful area. Many different schedules are recommended, such as "20 minutes on, 20 minutes off" or "one hour ice, two hours rest." If you need to work, you may need to go longer between ice treatments. You should plan to have the area ice packed AT LEAST one fourth of the time. The ice should be applied over the wrap, tape, or splint, or over a layer of cloth -- not directly against the skin. Some ice bags have a built-in cloth and can be put directly on the skin. WARM PACKS: After approximately two days, apply gentle heat (such as a heating pad or hot water bottle) for about 20 to 30 minutes about every two hours -- at least four times daily. Warmth and elevation will help you make a more rapid recovery , and will ease the pain considerably. Do not use HOT heat, and never apply heat for longer than 30 minutes. The continuous heat can invisibly damage skin and muscles -- even when no burn is seen on the surface. Damaged muscles can make you MORE sore. Stretching Exercises for the Back The physician has recommended that you begin stretching exercises for your back. These are often used even while the back is painful. However, you should notify the physician if the activities seem to increase your pain. PELVIC TILT: Lie flat on your back with knees bent. Tighten your stomach and buttock muscles so it flattens your lower back against the floor. Hold 10 seconds. Repeat 10 times, twice daily. KNEE RAISE: Lying on the back with knees bent, raise one knee to your chest, then the other. Hold both knees against the chest 10 seconds, then lower one knee at a time. Repeat 10 times, twice daily. PARTIAL TRUNK RAISE: Lie face down, arms at your sides. Keeping your waist on the floor, use your arms raise your chest up. Support yourself on your elbows for 30 seconds. Repeat twice daily, increasing the time to two minutes as you recover. [facility] with [facility] on [facility] 08 as scheduled and request a referral to a back specialist for your bulging disc and back pain. FOLLOW-UP CARE: If you have been referred to a physician for follow-up care, call the physician s office for an appointment as you were instructed or within the next two days. If you experience worsening or a significant change in your symptoms, notify the physician immediately or return to the Emergency Department at any time for re-evaluation. Prescriptions: Lidocaine [Lidoderm 5% (700 mg) Transdermal Patch] 1 patch TP DAILY #30 adh..patch Forms: Elevated Blood Pressure, Smoking Cessation Education Referrals: NANCI TURPIN MD [Primary Care Provider] - Follow up as needed
[2017-08-27 12:16] VITALS: BP 130/83
== END 2017-08-27 12:25 | disposition home or self-care (01) ==
LOC: ER 11:35
DX: G89.29 Other chronic pain (principal); M51.17 Intervertebral disc disorders with radiculopathy, lumbosacral region; I10 Essential (primary) hypertension; F17.210 Nicotine dependence, cigarettes, uncomplicated; Z71.6 Tobacco abuse counseling; Z87.81 Personal history of (healed) traumatic fracture
CPT/HCPCS: 99283

== ENCOUNTER 2017-10-01 11:24 | Emergency (ER) | payer OTHER, MEDICAID ==
[2017-10-01 11:32] VITALS: BP 136/84
[2017-10-01] MEDS ORDERED: AZITHROMYCIN 250 MG TABLET PO ONE (12:48)
[2017-10-01] MEDS ORDERED: LIDOCAINE 1% INJ-PF (10 MG/ML) 30 ML SDV INJ ONE (12:48)
[2017-10-01] MEDS ORDERED: CEFTRIAXONE INJ 250 MG VIAL IM ONE (12:48)
--- NOTE | 2017-10-01 12:52 | ER Document Report ---
ED GI/ - General Chief Complaint: STD Exposure Stated Complaint: STD CHECK Time Seen by Provider: 10/01/17 12:35 Mode of Arrival: Ambulatory Information source: Patient Notes: 37-year-old female presents to ED for complaint of vaginal discharge. She states her partner was +1 STD but they would not tell him over the phone with the STD was so she is coming here to get checked out so she can get treated. She denies any symptoms except for some vaginal discharge. TRAVEL OUTSIDE OF THE [place] IN LAST 30 DAYS: No - HPI Patient complains to provider of: Vaginal discharge, Other - Upper respiratory symptoms such as runny nose congestion Onset: Other Quality of pain: No pain Pain Level: Denies Vaginal bleeding (Compared to normal period): None Associated symptoms: Vaginal discharge - States he looks normal Exacerbated by: Denies Relieved by: Denies Similar symptoms previously: Yes Recently seen / treated by doctor: No - Related Data Allergies/Adverse Reactions: No Known Allergies Allergy (Verified 10/01/17 11:26) Past Medical History - General Information source: Patient - Social History Smoking Status: Current Every Day Smoker Cigarette use (# per day): Yes Smoking Education Provided: Yes - 3 minutes Frequency of alcohol use: None Drug Abuse: None Lives with: Family Family History: Arthritis, CVA, Hyperlipidemia Patient has suicidal ideation: No Patient has homicidal ideation: No - Past Medical History Cardiac Medical History: Reports: None Pulmonary Medical History: Reports: None EENT Medical History: Reports: None Neurological Medical History: Reports: None Endocrine Medical History: Reports: Hx Diabetes Mellitus Type 2 - Gestational Renal/ Medical History: Reports: None Malignancy Medical History: Reports: None GI Medical History: Reports: None Musculoskeltal Medical History: Reports Hx Arthritis, Reports Hx Musculoskeletal Trauma - hip pelvic femur coccyx fracture Skin Medical History: Reports None Psychiatric Medical History: Reports: Hx Anxiety, Hx Bipolar Disorder, Hx Depression Traumatic Medical History: Reports: Hx Fractures - hip pelvic femur coccyx Infectious Medical History: Reports: None Past Surgical History: Reports: Hx Section - Immunizations Immunizations up to date: Yes Hx Diphtheria, Pertussis, Tetanus Vaccination: Yes Review of Systems - Review of Systems Constitutional: No symptoms reported EENT: Nose congestion, Nose discharge, Sinus pressure, Sinus discharge Cardiovascular: No symptoms reported Respiratory: No symptoms reported Gastrointestinal: No symptoms reported Genitourinary: No symptoms reported Female Genitourinary: Other - Vaginal discharge partner has an STD but is not sure what Musculoskeletal: No symptoms reported Skin: No symptoms reported Hematologic/Lymphatic: No symptoms reported Neurological/Psychological: No symptoms reported -: Yes All other systems reviewed and negative Physical Exam - Vital signs Vitals: Temp Pulse Resp BP Pulse Ox 98.3 F 104 H 18 136/84 H 100 10/01/17 11:30 10/01/17 11:30 10/01/17 11:30 10/01/17 11:30 10/01/17 11:30 Interpretation: Normal - Notes Notes: Patient states she is mainly in her because her partner has been told he has an STD but they did not tell him what kind. She needs to get checked she does have a vaginal discharge. She states she has got also got a cold going on otherwise no symptoms. - General General appearance: Appears well, Alert - HEENT Head: Normocephalic, Atraumatic Eyes: Normal Pupils: PERRL Ears: Normal External canal: Normal Tympanic membrane: Normal Sinus: Normal Nasal: Purulent discharge, Swelling Mouth/Lips: Normal Mucous membranes: Normal Pharynx: Post nasal drainage - Respiratory Respiratory status: No respiratory distress Chest status: Nontender Breath sounds: Normal Chest palpation: Normal - Cardiovascular Rhythm: Regular Heart sounds: Normal auscultation Murmur: No - Abdominal Inspection: Normal Distension: No distension Bowel sounds: Normal Tenderness: Nontender Organomegaly: No organomegaly - Back Back: Normal, Nontender - Extremities General upper extremity: Normal inspection, Nontender, Normal color, Normal ROM , Normal temperature General lower extremity: Normal inspection, Nontender, Normal color, Normal ROM , Normal temperature, Normal weight bearing. No: Eloisa's sign - Neurological Neuro grossly intact: Yes Cognition: Normal Orientation: AAOx4 Tez Coma Scale Eye Opening: Spontaneous Tez Coma Scale Verbal: Oriented [place] Coma Scale Motor: Obeys Commands [place] Coma Scale Total: 15 Speech: Normal Motor strength normal: LUE, RUE, LLE, RLE Sensory: Normal - Psychological Associated symptoms: Normal affect, Normal mood - Skin Skin Temperature: Warm Skin Moisture: Dry Skin Color: Normal Course - Re-evaluation Re-evalutation: 10/01/17 21:13 Attempted several times to call patient to give her the results of her GC and chlamydia her chlamydia was positive. She was treated with a azithromycin and Rocephin in the emergency room before discharge. She was instructed to please unprotected sex until her and her partner had both been treated for 7 days. - Vital Signs Vital signs: Temp Pulse Resp BP Pulse Ox 98.3 F 104 H 18 136/84 H 100 10/01/17 11:30 10/01/17 11:30 10/01/17 11:30 10/01/17 11:30 10/01/17 11:30 - Laboratory Laboratory results interpreted by me: 10/01/17 10/01/17 12:35 12:35 Urine Urobilinogen 4.0 H Ur Leukocyte Esterase SMALL H Chlamydia DNA (PCR) DETECTED H Discharge - Discharge Clinical Impression: Concern about STD in female without diagnosis HTN (hypertension) Qualifiers: Hypertension type: unspecified Qualified Code(s): I10 - Essential (primary) hypertension Condition: Stable Disposition: HOME, SELF-CARE Instructions: Family Physicians / Practices Additional Instructions: VAGINITIS: Your exam shows that you have vaginitis, a vaginal infection. The infection can be caused by a many different organisms, including trichomonas or Gardnerella. The usual symptoms are vaginal irritation and discharge. The treatment is usually antibiotics such as Flagyl. Laboratory tests can determine which germ is responsible. Use the medication as prescribed. Because this infection can be transmitted sexually, your sexual partner may need to be checked and treated also. If your physician has not discussed this with you, please check before resuming sexual relations. If a culture shows gonorrhea or chlamydia, the infection must be reported to the health department. Call the doctor if you develop pelvic pain, fever, or problems with urination, or if you don't improve as expected. CEPHALOSPORINS: An antibiotic of the cephalosporin class has been prescribed. This type of antibiotic covers a wide variety of infections, including those of the skin, lungs, middle ear, and urinary tract. This antibiotic is somewhat similar to the penicillin family. In rare cases , a person who is allergic to penicillin will also be allergic to this medication. If you have had a severe allergic reaction to penicillin, and have not taken this antibiotic since that time, notify your doctor. Antibiotics which cover many germs ("broad spectrum" antibiotics) are more likely to cause diarrhea or "yeast" infections. Women prone to vaginal yeast problems may suffer an attack after taking this antibiotic. In infants, oral thrush (white spots "stuck" on the cheek) or yeast diaper rash may result. See your doctor if these problems occur. Call the doctor at once if you develop hives, itching, shortness of breath , or lightheadedness. AZITHROMYCIN: Azithromycin (Zithromax) is a broad spectrum antibiotic in the same class as erythromycin. It can treat a variety of bacterial infections, but is most frequently used for respiratory infections. Azithromycin is extremely long-lasting. It accumulates in body tissues and continues to kill bacteria for many days. In order to improve absorption, Azithromycin should be taken at least one hour before or two hours after a meal. It does not have the same strong tendency to upset the stomach as erythromycin and is usually very well tolerated. Patients who have had a rash or other true allergic reactions to erythromycin should not take this medication. Call if you develop gastrointestinal distress, severe diarrhea, rash, hives, itching, or shortness of breath. Please call [phone] for your results I will be here till 9:00. If you do not get me that I am not at the desk just call again and I will answer you. FOLLOW-UP CARE: If you have been referred to a physician for follow-up care, call the physician s office for an appointment as you were instructed or within the next two days. If you experience worsening or a significant change in your symptoms, notify the physician immediately or return to the Emergency Department at any time for re-evaluation. Forms: Elevated Blood Pressure, Return to Work
[2017-10-01 13:01] LABS: APPEARANCE,URINE SLIGHTLY-CLOUDY; BILIRUBIN,URINE NEGATIVE (NEGATIVE); COLOR,URINE YELLOW; GLUCOSE, URINE NEGATIVE (NEGATIVE); KETONES,URINE NEGATIVE (NEGATIVE); LEUKOCYTE ESTERASE,URINE SMALL (NEGATIVE); NITRITE,URINE NEGATIVE (NEGATIVE); PROTEIN,URINE NEGATIVE (NEGATIVE)
[2017-10-01 13:06] LABS: RBCS (WET MOUNT) NO RBCS SEEN; T.VAGINALIS (WET MOUNT) NO TRICHOMONAS SEEN; WBCS (WET MOUNT) 1+ WBCS SEEN; YEAST (WET MOUNT) NO YEAST SEEN
[2017-10-01 13:07] LABS: EPITHELIALS (WET MOUNT) 3+ EPITHELIALS SEEN
[2017-10-01 14:32] LABS: CHLAM PCR DETECTED (NOT DETECT); GON PCR NOT DETECTED (NOT DETECT)
== END 2017-10-01 13:55 | disposition home or self-care (01) ==
LOC: ER 11:24
DX: Z20.2 Contact with and (suspected) exposure to infections with a predominantly sexual mode of transmission (principal); I10 Essential (primary) hypertension; N89.8 Other specified noninflammatory disorders of vagina; F17.210 Nicotine dependence, cigarettes, uncomplicated
CPT/HCPCS: 99283; 96372; 87210; 81025; 81001; 87491; 87591; J3490; J0696

== ENCOUNTER 2017-10-23 19:17 | Emergency (ER) | payer OTHER, MEDICAID ==
--- NOTE | 2017-10-23 19:44 | ER Document Report ---
ED Medical Screen (RME) - General Chief Complaint: Abdominal Pain Stated Complaint: ABDOMINAL PAIN Time Seen by Provider: 10/23/17 19:41 Mode of Arrival: Ambulatory Information source: Patient Notes: 37-year-old female presents to ED for complaint of abdominal pain just does not feel right words she is having a tubal . She is not having any vaginal discharge no foul odors. States she was seen 2 weeks ago and treated for chlamydia. States she has told she needs to get her cervix removed for abnormal cells. States her partner was also treated but he did not get the shot that she did and she is worried she might have chlamydia again. GC chlamydia wet mount blood and urine have been ordered as well as transvaginal ultrasound. Patient self swabbed for GC chlamydia and wet mount. I have greeted and performed a rapid initial assessment of this patient. A comprehensive ED assessment and evaluation of the patient, analysis of test results and completion of medical decision making process will be conducted by an additional ED providers. TRAVEL OUTSIDE OF THE [place] IN LAST 30 DAYS: No - Related Data Allergies/Adverse Reactions: No Known Allergies Allergy (Verified 10/23/17 19:18) Past Medical History - Social History Chew tobacco use (# tins/day): No Frequency of alcohol use: Rare Drug Abuse: None Endocrine Medical History: Reports: Hx Diabetes Mellitus Type 2 - Gestational Renal/ Medical History: Denies: Hx Peritoneal Dialysis Musculoskeltal Medical History: Reports Hx Arthritis, Reports Hx Musculoskeletal Trauma - hip pelvic femur coccyx fracture Psychiatric Medical History: Reports: Hx Anxiety, Hx Bipolar Disorder, Hx Depression Traumatic Medical History: Reports: Hx Fractures - hip pelvic femur coccyx Past Surgical History: Reports: Hx Section - Immunizations Immunizations up to date: Yes Hx Diphtheria, Pertussis, Tetanus Vaccination: Yes Physical Exam - Vital signs Vitals: Temp Pulse Resp BP Pulse Ox 98.4 F 99 18 133/87 H 99 10/23/17 19:22 10/23/17 19:22 10/23/17 19:22 10/23/17 19:22 10/23/17 19:22 Course - Vital Signs Vital signs: Temp Pulse Resp BP Pulse Ox 98.4 F 99 18 133/87 H 99 10/23/17 19:22 10/23/17 19:22 10/23/17 19:22 10/23/17 19:22 10/23/17 19:22
[2017-10-23 20:04] LABS: BACTERIA (WET MOUNT) 4+ BACTERIA SEEN; EPITHELIALS (WET MOUNT) 3+ EPITHELIALS SEEN; T.VAGINALIS (WET MOUNT) NO TRICHOMONAS SEEN; WBCS (WET MOUNT) 1+ WBCS SEEN; YEAST (WET MOUNT) NO YEAST SEEN
[2017-10-23 20:32] LABS: ABSOLUTE BASOPHILS # (AUTO) 0.1 10^3/uL (0.0-0.2); ABSOLUTE EOSINOPHILS # (AUTO) 0.4 10^3/uL (0.0-0.6); ABSOLUTE LYMPHOCYTES (AUTO) 5.4 10^3/uL (0.5-4.7); ABSOLUTE MONOCYTES (AUTO) 0.7 10^3/uL (0.1-1.4); ABSOLUTE NEUT (AUTO) 12.8 10^3/uL (1.7-8.2); BASOPHILS % (AUTO) 0.7 % (0-2); EOSINOPHILS % (AUTO) 2.2 % (0-6); HEMATOCRIT 45.3 % (36.0-47.0); HEMOGLOBIN 14.4 g/dL (12.0-15.5); LYMPHOCYTES % (AUTO) 27.8 % (13-45); MEAN CORPUSCULAR HEMOGLOBIN 23.9 pg (27.0-33.4); MEAN CORPUSCULAR HGB CONC 31.7 g/dL (32.0-36.0); MEAN CORPUSCULAR VOLUME 76 fl (80-97); MONOCYTES % (AUTO) 3.6 % (3-13); PLATELET COUNT 333 10^3/uL (150-450); RED CELL DISTRIBUTION WIDTH 16.1 % (11.5-14.0); SEGMENTED NEUTROPHILS % (AUTO) 65.7 % (42-78); TOTAL CELLS COUNTED % (AUTO) 100 %; WHITE BLOOD COUNT 19.5 10^3/uL (4.0-10.5)
[2017-10-23 20:38] LABS: APPEARANCE,URINE CLOUDY; BILIRUBIN,URINE NEGATIVE (NEGATIVE); COLOR,URINE YELLOW; GLUCOSE, URINE NEGATIVE (NEGATIVE); KETONES,URINE NEGATIVE (NEGATIVE); LEUKOCYTE ESTERASE,URINE TRACE (NEGATIVE); NITRITE,URINE NEGATIVE (NEGATIVE); PROTEIN,URINE NEGATIVE (NEGATIVE); URINE SPECIFIC GRAVITY 1.018
--- NOTE | 2017-10-23 20:56 | RADIOLOGY REPORT (SQ) ---
EXAM DESCRIPTION: U/S OB TRANSVAG W/DOPPLER COMPLETED DATE/TIME: 10/23/2017 8:43 pm REASON FOR STUDY: pelvic pain worried it is tubal preg COMPARISON: None. TECHNIQUE: Transvaginal static and realtime grayscale images acquired of the pelvis. Additional pawel cted spectral and color Doppler images recorded. All images stored on PACs. BHCG: Pending. LIMITATIONS: None. FINDINGS: UTERUS: No visualized intrauterine . RIGHT ADNEXA: Normal ovary with normal vascular flow. No adnexal free fluid. No adnexal masses. LEFT ADNEXA: Ovary not identified. No adnexal free fluid. No adnexal masses. FREE FLUID: None. OTHER: Cervix closed, 3.6 cm. IMPRESSION: NO VISUALIZED INTRA- OR EXTRAUTERINE . bHCG LEVEL NOT AVAILABLE FOR CORRELATION WITH US FINDINGS. ECTOPIC CANNOT BE EXCLUDED. FOLLOW-UP ULTRASOUND AND SERIAL BHCG LEVELS STRONGLY RECOMMENDED TO ACCURATELY ASSESS STATU S. TECHNICAL DOCUMENTATION: JOB ID: [id number] [employer]- All Rights Reserved
[2017-10-23 20:58] LABS: ALANINE AMINOTRANSFERASE 51 U/L (9-52); ALBUMIN 4.7 g/dL (3.5-5.0); ALKALINE PHOSPHATASE 90 U/L (38-126); ANION GAP 13 (5-19); ASPARTATE AMINO TRANSFERASE 31 U/L (14-36); BILIRUBIN,DIRECT 0.1 mg/dL (0.0-0.4); BILIRUBIN,TOTAL 0.2 mg/dL (0.2-1.3); BLOOD UREA NITROGEN 14 mg/dL (7-20); CALCIUM 10.1 mg/dL (8.4-10.2); CARBON DIOXIDE 25 mmol/L (22-30); CHLORIDE 106 mmol/L (98-107); GLUCOSE 76 mg/dL (75-110); SODIUM 144.2 mmol/L (137-145)
[2017-10-23 21:31] LABS: CHLAM PCR NOT DETECTED (NOT DETECT); GON PCR NOT DETECTED (NOT DETECT)
--- NOTE | 2017-10-23 22:53 | ER Document Report ---
ED GI/ - General Chief Complaint: Abdominal Pain Stated Complaint: ABDOMINAL PAIN Time Seen by Provider: 10/23/17 19:41 Mode of Arrival: Ambulatory Information source: Patient Notes: 37-year-old female presented ED for complaint of abdominal pain. She states she does not have any vaginal discharge or foul odor but she was treated 2 weeks ago for chlamydia. She states she was unsure if her partner took his medicine as he was supposed to. She states she is scheduled to have her cervix removed due to abnormal cells. TRAVEL OUTSIDE OF THE [place] IN LAST 30 DAYS: No - HPI Patient complains to provider of: Abdominal pain Onset: Other - 2 weeks Quality of pain: Cramping, Sharp Severity at maximum: Moderate Severity in ED: Moderate Pain Level: 4 Location: Pelvis Vaginal bleeding (Compared to normal period): None LMP: October 07, 2017 Associated symptoms: denies: Chills, Fever, Nausea, Vomiting Exacerbated by: Movement, Walking Relieved by: Denies Similar symptoms previously: Yes Recently seen / treated by doctor: Yes - Related Data Allergies/Adverse Reactions: No Known Allergies Allergy (Verified 10/23/17 19:18) Past Medical History - General Information source: Patient - Social History Smoking Status: Current Every Day Smoker Cigarette use (# per day): Yes Chew tobacco use (# tins/day): No Smoking Education Provided: Yes - 4 minutes Frequency of alcohol use: Rare Drug Abuse: None Lives with: Spouse/Significant other Family History: Arthritis, CVA, Hyperlipidemia Patient has suicidal ideation: No Patient has homicidal ideation: No Endocrine Medical History: Reports: Hx Diabetes Mellitus Type 2 - Gestational Renal/ Medical History: Denies: Hx Peritoneal Dialysis Musculoskeltal Medical History: Reports Hx Arthritis, Reports Hx Musculoskeletal Trauma - hip pelvic femur coccyx fracture Psychiatric Medical History: Reports: Hx Anxiety, Hx Bipolar Disorder, Hx Depression Traumatic Medical History: Reports: Hx Fractures - hip pelvic femur coccyx Past Surgical History: Reports: Hx Section - Immunizations Immunizations up to date: Yes Hx Diphtheria, Pertussis, Tetanus Vaccination: Yes Review of Systems - Review of Systems Notes: Constitutional: [PRESENT: as per HPI. ABSENT: chills, fever(s), headache(s), weight gain, weight loss] Eyes: [ABSENT: visual disturbances] Ears: [ABSENT: hearing changes] Cardiovascular: [ABSENT: chest pain, dyspnea on exertion, edema, orthropnea, palpitations] Respiratory: [ABSENT: cough, hemoptysis] Gastrointestinal: [ABSENT: constipation, diarrhea, hematemesis, hematochezia, nausea, vomiting] abdominal/pelvic pain left and right lower abdomen Genitourinary: [ABSENT: dysuria, hematuria] Musculoskeletal: [ABSENT: joint swelling] Integumentary: [ABSENT: rash, wounds] Neurological: [ABSENT: abnormal gait, abnormal speech, confusion, dizziness, focal weakness, syncope] Psychiatric: [ABSENT: anxiety, depression, homicidal ideation, suicidal ideation ] Endocrine: [ABSENT: cold intolerance, heat intolerance, menstrual abnormalities , polydipsia, polyuria] Hematologic/Lymphatic: [ABSENT: easy bleeding, easy bruising, lymphadenopathy] Physical Exam - Vital signs Vitals: Temp Pulse Resp BP Pulse Ox 98.4 F 99 18 133/87 H 99 10/23/17 19:22 10/23/17 19:22 10/23/17 19:22 10/23/17 19:22 10/23/17 19:22 - Notes Notes: PHYSICAL EXAMINATION: GENERAL: Well-appearing, well-nourished and in no acute distress. HEAD: Atraumatic, normocephalic. EYES: Pupils equal round and reactive to light, extraocular movements intact, conjunctiva are normal. ENT: Nares patent, oropharynx clear without exudates. Moist mucous membranes. NECK: Normal range of motion, supple without lymphadenopathy LUNGS: Breath sounds clear to auscultation bilaterally and equal. No wheezes rales or rhonchi. HEART: Regular rate and rhythm without murmurs ABDOMEN: Soft, nondistended abdomen. No guarding, no rebound. No masses appreciated. Left and right lower/pelvic pain and tenderness to palpation. Female : deferred Musculoskeletal: Normal range of motion, no pitting or edema. No cyanosis. NEUROLOGICAL: Cranial nerves grossly intact. Normal speech, normal gait. Normal sensory, motor exams PSYCH: Normal mood, normal affect. SKIN: Warm, Dry, normal turgor, no rashes or lesions noted. Course - Re-evaluation Re-evalutation: 10/24/17 06:40 CT and pelvic ultrasound discussed with patient and written report given to patient. Which were also given to patient. CT was negative for any acute changes she did have an elevated white count. I consulted with who recommended a CAT scan that was done due to her elevated white count of 19, 000. The CT came back negative he stated that it was okay to discharge her with treatment for her bacterial vaginosis and be sure to explain to her that she needs to follow up right away if she developed fever suppress any increase in abdominal pain with inability to keep food and fluids down. Patient verbalized understanding of her instructions and agreed with plan of care. Patient denied any other concerns or questions at this time. - Vital Signs Vital signs: Temp Pulse Resp BP Pulse Ox 97.7 F 85 16 102/58 L 96 10/24/17 03:16 10/24/17 03:16 10/24/17 03:16 10/24/17 03:16 10/24/17 03:16 - Laboratory Result Diagrams: 10/23/17 20:12 10/23/17 20:12 Laboratory results interpreted by me: 10/23/17 10/23/17 20:04 20:12 WBC 19.5 H RBC 6.00 H MCV 76 L MCH 23.9 L MCHC 31.7 L RDW 16.1 H Absolute Neutrophils 12.8 H Absolute Lymphocytes 5.4 H Urine Urobilinogen 4.0 H Ur Leukocyte Esterase TRACE H - Diagnostic Test Radiology reviewed: Image reviewed, Reports reviewed Discharge - Discharge Clinical Impression: Pelvic pain, Bacterial vaginosis Abdominal pain Qualifiers: Abdominal location: lower abdomen, unspecified Qualified Code(s): R10.30 - Lower abdominal pain, unspecified Condition: Stable Disposition: HOME, SELF-CARE Instructions: Abdominal Pain ([facility]) Additional Instructions: PELVIC PAIN: There are many causes of pain in the pelvic area. The cause could be the tubes, ovaries, uterus, intestines, appendix, pelvic muscles and connective tissue, or the urinary tract. The cause of your pelvic pain is not clear. However, it seems safe to treat you outside the hospital. If the pain sounds like a temporary problem, we sometimes wait to see if it goes away. Other patients may need additional tests, such as pelvic ultrasound or cultures. Conditions may change. Call us or come back for reexamination if any problems occur, such as: (1) Pain that becomes more severe, steady, or becomes concentrated in one specific area. Also, pain that is more severe with movement or coughing. (2) Vomiting that persists or becomes more frequent. (3) Blood in the vomitus, urine, or bowel movements. Blood in the stool may have a tarry or black appearance. (4) Shaking chills or fever greater than 100 degrees. (5) The abdomen becomes more distended or swollen. (6) Bowel movements cease. (7) Heavy vaginal bleeding. VAGINOSIS, BACTERIAL: Your exam shows you have bacterial vaginosis. This condition is due to an overgrowth of bacteria in the vagina. Symptoms may include vaginal itching or pain, a smelly discharge, and sometimes burning with urination. Normally this is not transmitted by sexual contact. Vaginosis can be treated with oral or topical antibiotics. Metronidazole ( Flagyl) pills are usually effective. Topical vaginal creams include Cleocin and Metro-Gel. You should avoid sexual contact until your symptoms are all better. Call the doctor if you develop pelvic pain, fever, or problems with urination, or if you don't improve as expected. METRONIDAZOLE: Metronidazole (Flagyl) has been prescribed. This medication is used to kill a type of bacteria called anaerobes, and protozoan parasites such as trichomonas and Giardia. Flagyl often causes a metallic taste in the mouth and mild nausea. Do not use alcohol in any form with Flagyl (including alcohol in medication elixirs). Flagyl interacts with alcohol to cause flushing, palpitations, headache, stomach cramps, and vomiting. Do not use Flagyl if you are taking Antabuse (disulfiram). Call the doctor at once if you develop rash, shortness of breath, itching, or lightheadedness. FOLLOW-UP CARE: If you have been referred to a physician for follow-up care, call the physician s office for an appointment as you were instructed or within the next two days. If you experience worsening or a significant change in your symptoms, notify the physician immediately or return to the Emergency Department at any time for re-evaluation. Prescriptions: Metronidazole [Flagyl 500 mg Tablet] 500 mg PO BID #14 tablet Forms: Elevated Blood Pressure, Smoking Cessation Education Referrals: STEWART TURPIN MD [Primary Care Provider] - Follow up as needed
--- NOTE | 2017-10-24 01:48 | RADIOLOGY REPORT (SQ) ---
EXAM DESCRIPTION: CT ABD/PELVIS WITH IV ORAL CLINICAL HISTORY: 37 years Female, abdominal pain lower abdomen COMPARISON: 1..16; US, 2..18 TECHNIQUE: 96 mL Isovue-370 contrast. Coronal and sagittal reformat. This exam was performed according to our departmental dose-optimization program, which includes automated exposure control, adjustment of the mA and/or kV according to patient size and/or use of iterative reconstruction technique. FINDINGS: No acute findings. No free fluid. No bowel or renal obstruction. Small atelectasis or scar of the right middle lobe and lingula. 0.2 cm bilateral renal stones. Colonic diverticulosis. Normal appendix. Splenule. Inferior thorax, liver, gallbladder, pancreas, spleen, adrenals, renal system, gastrointestinal tract, pelvic organs, lymphatics, vasculature, and musculoskeleton appear otherwise unremarkable. IMPRESSION: No acute findings. Punctate bilateral nephrolithiasis.
[2017-10-24] MEDS ORDERED: METRONIDAZOLE 500 MG TABLET PO ONE (03:08)
[2017-10-24 03:18] VITALS: BP 102/58
== END 2017-10-24 03:41 | disposition home or self-care (01) ==
LOC: ER 19:17
DX: N76.0 Acute vaginitis (principal); B97.89 Other viral agents as the cause of diseases classified elsewhere; R10.2 Pelvic and perineal pain; R10.30 Lower abdominal pain, unspecified; F17.210 Nicotine dependence, cigarettes, uncomplicated
CPT/HCPCS: 36415; 74177; 76817; 80053; 81001; 84703; 85025; 87210; 87491; 87591; 93976; 99284; 99406

== ENCOUNTER 2017-11-16 13:26 | Emergency (ER) | payer OTHER, MEDICAID ==
[2017-11-16 13:35] VITALS: BP 122/82
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
== END 2017-11-16 14:21 | disposition home or self-care (01) ==
LOC: ER 13:26
DX: J01.10 Acute frontal sinusitis, unspecified (principal); R09.81 Nasal congestion; R05 Cough; R11.2 Nausea with vomiting, unspecified; R19.7 Diarrhea, unspecified; M54.9 Dorsalgia, unspecified; M79.606 Pain in leg, unspecified; G89.29 Other chronic pain; F17.210 Nicotine dependence, cigarettes, uncomplicated
CPT/HCPCS: 99283

== ENCOUNTER → 2017-11-25 | Outpatient (CLI) | payer MEDICAID ==
[2017-11-25 12:56] LABS: T.VAGINALIS (WET MOUNT) COULD NOT PERFORM; WBCS (WET MOUNT) FEW WBCS SEEN; YEAST (WET MOUNT) NO YEAST SEEN
[2017-11-25 12:57] LABS: BACTERIA (WET MOUNT) 4+ BACTERIA SEEN; EPITHELIALS (WET MOUNT) 4+ EPITHELIALS SEEN
[2017-11-25 14:30] LABS: CHLAM PCR NOT DETECTED (NOT DETECT); GON PCR NOT DETECTED (NOT DETECT)
== END ==
LOC: LAB 12:53
PROVIDERS: ATTEND Nurse Practitioner Acute Care
DX: N94.9 Unspecified condition associated with female genital organs and menstrual cycle (principal)
CPT/HCPCS: 87210; 87491; 87591

== ENCOUNTER 2017-12-18 08:08 | Emergency (ER) | payer OTHER, MEDICAID ==
--- NOTE | 2017-12-18 09:31 | RADIOLOGY REPORT (SQ) ---
EXAM DESCRIPTION: CHEST 2 VIEWS COMPLETED DATE/TIME: 12/18/2017 9:14 am REASON FOR STUDY: COUGH COMPARISON: 06/09/2016 EXAM PARAMETERS: NUMBER OF VIEWS: two views TECHNIQUE: Digital Frontal and Lateral radiographic views of the chest acquired. RADIATION DOSE: NA LIMITATIONS: none FINDINGS: LUNGS AND PLEURA: No opacities, masses or pneumothorax. No pleural effusion. MEDIASTINUM AND HILAR STRUCTURES: No masses or contour abnormalities. HEART AND VASCULAR STRUCTURES: Heart normal size. No evidence for failure. BONES: No acute findings. HARDWARE: None in the chest. OTHER: No other significant finding. IMPRESSION: NO ACUTE RADIOGRAPHIC FINDING IN THE CHEST. TECHNICAL DOCUMENTATION: JOB ID: [id number] [employer]- All Rights Reserved Reading location - IP/workstation name: [email or web address]
[2017-12-18] MEDS ORDERED: ALBUTEROL SULFATE HFA (90 MCG/PUFF) 8 GM MDI (1 MDI/ER DISP) IH ONE (11:44)
--- NOTE | 2017-12-18 11:44 | ER Document Report ---
ED General - General Chief Complaint: Productive Cough Stated Complaint: COUGHING UP BLOOD Time Seen by Provider: 12/18/17 08:46 TRAVEL OUTSIDE OF THE [place] IN LAST 30 DAYS: No - HPI Patient complains to provider of: Coughing up blood Notes: Patient states recently diagnosed pneumonia finished her antibiotics approximately 2 weeks ago however did last 48 hours coughing up streaks of blood. Patient denies any fevers chills nausea vomiting diarrhea. Patient does smoke has been smoking for greater than 10 years. Denies any recent travel or incarceration denies any contact with anybody that she knows would have tuberculosis or any other pulmonary infections. Patient is resting comfortably upon my evaluation. - Related Data Allergies/Adverse Reactions: No Known Allergies Allergy (Verified 12/18/17 08:12) Past Medical History - Social History Smoking Status: Current Every Day Smoker Frequency of alcohol use: Rare Drug Abuse: None Family History: Arthritis, CVA, Hyperlipidemia Patient has suicidal ideation: No Patient has homicidal ideation: No Endocrine Medical History: Reports: Hx Diabetes Mellitus Type 2 - Gestational Renal/ Medical History: Denies: Hx Peritoneal Dialysis Musculoskeltal Medical History: Reports Hx Arthritis, Reports Hx Musculoskeletal Trauma - hip pelvic femur coccyx fracture Psychiatric Medical History: Reports: Hx Anxiety, Hx Bipolar Disorder, Hx Depression Traumatic Medical History: Reports: Hx Fractures - hip pelvic femur coccyx Past Surgical History: Reports: Hx Section - Immunizations Immunizations up to date: Yes Hx Diphtheria, Pertussis, Tetanus Vaccination: Yes Review of Systems - Review of Systems Constitutional: No symptoms reported EENT: No symptoms reported Cardiovascular: No symptoms reported Respiratory: Cough, Hemoptysis Gastrointestinal: No symptoms reported Genitourinary: No symptoms reported Female Genitourinary: No symptoms reported Musculoskeletal: No symptoms reported Skin: No symptoms reported Hematologic/Lymphatic: No symptoms reported Neurological/Psychological: No symptoms reported -: Yes All other systems reviewed and negative Physical Exam - Vital signs Vitals: Temp Pulse Resp BP Pulse Ox 98.3 F 103 H 18 128/75 H 100 12/18/17 08:13 12/18/17 08:13 12/18/17 08:13 12/18/17 08:13 12/18/17 08:13 Interpretation: Normal - General General appearance: Appears well, Alert - HEENT Head: Normocephalic, Atraumatic Eyes: Normal Pupils: PERRL - Respiratory Respiratory status: No respiratory distress Chest status: Nontender Breath sounds: Normal Chest palpation: Normal - Cardiovascular Rhythm: Regular Heart sounds: Normal auscultation Murmur: No - Abdominal Inspection: Normal Distension: No distension Bowel sounds: Normal Tenderness: Nontender Organomegaly: No organomegaly - Back Back: Normal, Nontender - Extremities General upper extremity: Normal inspection, Nontender, Normal color, Normal ROM , Normal temperature General lower extremity: Normal inspection, Nontender, Normal color, Normal ROM , Normal temperature, Normal weight bearing. No: Eloisa's sign - Neurological Neuro grossly intact: Yes Cognition: Normal Orientation: AAOx4 [place] Coma Scale Eye Opening: Spontaneous [place] Coma Scale Verbal: Oriented [place] Coma Scale Motor: Obeys Commands [place] Coma Scale Total: 15 Speech: Normal Motor strength normal: LUE, RUE, LLE, RLE Sensory: Normal - Psychological Associated symptoms: Normal affect, Normal mood - Skin Skin Temperature: Warm Skin Moisture: Dry Skin Color: Normal Course - Re-evaluation Re-evalutation: 12/18/17 14:36 Patient had no nikolai hemoptysis was here in ER during her 2 hour stay. Chest x- ray was performed showed no signs of infection nodules or other concerning etiology no pulmonary masses. Splinted patient this could be coming from her sinuses and coughing up or can be a beginning of a viral bronchitis. Explained to patient that I will highly recommend she stop smoking will discharge patient home with bronchodilator patient states understanding will be discharged - Vital Signs Vital signs: Temp Pulse Resp BP Pulse Ox 97.7 F 91 18 125/82 98 12/18/17 11:52 12/18/17 11:52 12/18/17 11:52 12/18/17 11:52 12/18/17 11:52 Discharge - Discharge Clinical Impression: Coughing up blood Condition: Good Disposition: HOME, SELF-CARE Instructions: Hemoptysis ([facility]) Additional Instructions: At this time your chest x-ray does not show any signs of recurrent pneumonia nodules or other infection. He may be coughing up a little bit of blood from bloody sinus drainage beginning of a viral bronchitis. Please follow-up with your primary care provider. Return to the ER if symptoms worsen. Take medications as prescribed.
[2017-12-18 11:54] VITALS: BP 125/82
== END 2017-12-18 12:16 | disposition home or self-care (01) ==
LOC: ER 08:08
DX: R04.2 Hemoptysis (principal); F17.200 Nicotine dependence, unspecified, uncomplicated
CPT/HCPCS: 99283; 71046; J3490

== ENCOUNTER 2018-01-15 19:44 | Emergency (ER) | payer OTHER, MEDICAID ==
[2018-01-15 22:37] LABS: APPEARANCE,URINE SLIGHTLY-CLOUDY; BILIRUBIN,URINE NEGATIVE (NEGATIVE); COLOR,URINE YELLOW; GLUCOSE, URINE NEGATIVE (NEGATIVE); KETONES,URINE NEGATIVE (NEGATIVE); LEUKOCYTE ESTERASE,URINE NEGATIVE (NEGATIVE); NITRITE,URINE NEGATIVE (NEGATIVE); PROTEIN,URINE NEGATIVE (NEGATIVE); URINE SPECIFIC GRAVITY 1.021
--- NOTE | 2018-01-15 22:50 | ER Document Report ---
ED General - General Chief Complaint: Abdominal Pain Stated Complaint: ABDOMINAL PAIN Time Seen by Provider: 01/15/18 22:04 Notes: Patient is a 37-year-old female presents with 3 different complaints. First complaint is lower back pain. She has history of chronic low back pain. She had an MRI this month. MRI does show some sciatic nerve impingement. Did not show anything else. Pain is constant and chronic. She says maybe a little bit worse than before. No weakness or numbness into extremities. No loss of bowel control. No urinary retention. No dysuria. Patient second complaint is of pain in the vaginal area. No abnormal discharge or vaginal bleeding. She does have a history of tubal ligation. She is sexually active. Patient's third complaint is of shortness of breath and chest pain. She says is been intermittent for about a month. She says when she exerts herself she gets more short of breath. She saw her primary care doctor the [place] who told her to quit smoking. She still has not quit smoking. TRAVEL OUTSIDE OF THE [place] IN LAST 30 DAYS: No - Related Data Allergies/Adverse Reactions: No Known Allergies Allergy (Verified 01/15/18 19:53) Past Medical History - Social History Smoking Status: Current Every Day Smoker Frequency of alcohol use: None Drug Abuse: None Family History: Arthritis, CVA, Hyperlipidemia Patient has suicidal ideation: No Patient has homicidal ideation: No Endocrine Medical History: Reports: Hx Diabetes Mellitus Type 2 - Gestational Renal/ Medical History: Denies: Hx Peritoneal Dialysis Musculoskeltal Medical History: Reports Hx Arthritis, Reports Hx Musculoskeletal Trauma - hip pelvic femur coccyx fracture Psychiatric Medical History: Reports: Hx Anxiety, Hx Bipolar Disorder, Hx Depression Traumatic Medical History: Reports: Hx Fractures - hip pelvic femur coccyx Past Surgical History: Reports: Hx Section - Immunizations Immunizations up to date: Yes Hx Diphtheria, Pertussis, Tetanus Vaccination: Yes Review of Systems - Review of Systems Notes: My Normal Review Basic REVIEW OF SYSTEMS: CONSTITUTIONAL : Denies fever, chills, or sweats. Denies recent illness. EENT: Denies eye, ear, throat, or mouth pain or symptoms. Denies nasal or sinus congestion. CARDIOVASCULAR: Denies chest pain. RESPIRATORY: Denies cough, cold, or chest congestion. Denies shortness of breath, difficulty breathing, or wheezing. GASTROINTESTINAL: Denies abdominal pain. Denies nausea, vomiting, or diarrhea. GENITOURINARY: Denies difficulty urinating, painful urination, burning, frequency, or blood in urine. FEMALE GENITOURINARY: Denies vaginal bleeding, abnormal or irregular periods. Pelvic pain no nausea MUSCULOSKELETAL: Back pain SKIN: Denies rash or skin lesions. NEUROLOGICAL: Denies altered mental status or loss of consciousness. Denies headache. Denies weakness or paralysis or loss of use of either side. Denies problems with gait or speech. Denies sensory or motor loss. ALL OTHER SYSTEMS REVIEWED AND NEGATIVE. Physical Exam - Vital signs Vitals: Temp Pulse Resp BP Pulse Ox 98.6 F 95 18 132/84 H 99 01/15/18 19:59 01/15/18 19:59 01/15/18 19:59 01/15/18 19:59 01/15/18 19:59 - Notes Notes: General Appearance: Well nourished, alert, cooperative, no acute distress, no obvious discomfort. Well appearing. Vitals: reviewed, See vital signs table. Head: no swelling or tenderness to the head Eyes: PERRL, EOMI, Conjuctiva clear Mouth: No decreasd moisture Neck: Supple, no neck tenderness Lungs: No wheezing, No rales, No rhonci, No accessory muscle use, good air exchange bilaterally. Heart: Normal rate, Regular rythm, No murmur, no rub Back: Pain to palpation of the sacral area. No pain over lumbar spine or paraspinal musculature. Abdomen: Normal BS, soft, No rigidity, No abdominal tenderness, No guarding, no rebound, no abdominal masses, no organomegaly Extremities: strength 5/5 in all extremities, good pulses in all extremities, no swelling or tenderness in the extremities, no edema. Skin: warm, dry, appropriate color, no rash Neuro: speech clear, oriented x 3, normal affect, responds appropriately to questions. Distal sensation intact. Course - Re-evaluation Re-evalutation: 01/16/18 05:48 Pelvic exams not show any concerning findings. Patient's laboratory evaluation was unremarkable except for mild leukocytosis. Patient's back pain appears to be chronic without any signs of cauda equina syndrome. Patient's pelvic ultrasound did not show any concerning findings. Patient's chest x-ray was normal. She has chronic chest pain and difficulty breathing. I therefore did do workup. Workup was negative for any signs of cardiac ischemia. Is low risk for coronary disease and therefore I do not think she requires admission. She is appropriate to follow-up outpatient with her doctor. I encouraged to return to ER if she has worsening difficulty breathing, fevers, severe worsening pelvic pain, abnormal discharge, leg weakness or numbness, loss of bowel control , urinary retention. I would refer her to gynecology due to her pelvic pain. Patient agrees with plan will be discharged home. Dictation of this chart was performed using voice recognition software; therefore, there may be some unintended grammatical errors. - Vital Signs Vital signs: Temp Pulse Resp BP Pulse Ox 98.8 F 90 16 131/83 H 100 01/16/18 01:56 01/16/18 01:56 01/16/18 01:56 01/16/18 01:56 01/16/18 01:56 - Laboratory Result Diagrams: 01/15/18 22:57 01/15/18 22:57 Laboratory results interpreted by me: 01/15/18 01/15/18 01/15/18 22:05 22:57 22:57 WBC 15.2 H RBC 5.34 H MCV 74 L MCH 23.9 L RDW 16.6 H Absolute Neutrophils 9.3 H Absolute Lymphocytes 4.8 H Chloride 110 H Glucose 136 H Total Bilirubin < 0.1 L Urine Urobilinogen 2.0 H Discharge - Discharge Clinical Impression: Pelvic pain Chest pain Qualifiers: Chest pain type: unspecified Qualified Code(s): R07.9 - Chest pain, unspecified Back pain Qualifiers: Back pain location: low back pain Chronicity: chronic Back pain laterality: midline Sciatica presence: without sciatica Qualified Code(s): M54.5 - Low back pain Dyspnea Qualifiers: Dyspnea type: unspecified Qualified Code(s): R06.00 - Dyspnea, unspecified Condition: Good Disposition: HOME, SELF-CARE Instructions: Stop Smoking (OM) Additional Instructions: Please return to the ER immediately if you develop worsening pain, fevers, vomiting, worsening difficulty breathing, recurrent chest pain or if you feel unwell. Please call the [facility] office on Wednesday if you are still having any pelvic pain and follow up on Wednesday or Wednesday. Please follow up with your doctor in regards to your chronic back pain and ongoing difficulty breathing and chest pain. Please stop smoking.
[2018-01-15 23:19] LABS: ABSOLUTE BASOPHILS # (AUTO) 0.1 10^3/uL (0.0-0.2); ABSOLUTE EOSINOPHILS # (AUTO) 0.5 10^3/uL (0.0-0.6); ABSOLUTE LYMPHOCYTES (AUTO) 4.8 10^3/uL (0.5-4.7); ABSOLUTE MONOCYTES (AUTO) 0.6 10^3/uL (0.1-1.4); ABSOLUTE NEUT (AUTO) 9.3 10^3/uL (1.7-8.2); BASOPHILS % (AUTO) 0.4 % (0-2); HEMATOCRIT 39.7 % (36.0-47.0); HEMOGLOBIN 12.8 g/dL (12.0-15.5); LYMPHOCYTES % (AUTO) 31.4 % (13-45); MEAN CORPUSCULAR HEMOGLOBIN 23.9 pg (27.0-33.4); MEAN CORPUSCULAR HGB CONC 32.2 g/dL (32.0-36.0); MEAN CORPUSCULAR VOLUME 74 fl (80-97); MONOCYTES % (AUTO) 3.8 % (3-13); PLATELET COUNT 265 10^3/uL (150-450); RED BLOOD COUNT 5.34 10^6/uL (3.72-5.28); RED CELL DISTRIBUTION WIDTH 16.6 % (11.5-14.0); SEGMENTED NEUTROPHILS % (AUTO) 61.4 % (42-78); TOTAL CELLS COUNTED % (AUTO) 100 %; WHITE BLOOD COUNT 15.2 10^3/uL (4.0-10.5)
[2018-01-15 23:39] LABS: ALANINE AMINOTRANSFERASE 26 U/L (9-52); ALBUMIN 3.7 g/dL (3.5-5.0); ALKALINE PHOSPHATASE 80 U/L (38-126); ANION GAP 13 (5-19); ASPARTATE AMINO TRANSFERASE 14 U/L (14-36); BLOOD UREA NITROGEN 14 mg/dL (7-20); CALCIUM 9.8 mg/dL (8.4-10.2); CARBON DIOXIDE 22 mmol/L (22-30); CHLORIDE 110 mmol/L (98-107); GLUCOSE 136 mg/dL (75-110); POTASSIUM 3.9 mmol/L (3.6-5.0); SODIUM 144.8 mmol/L (137-145); TOTAL PROTEIN 6.6 g/dL (6.3-8.2)
[2018-01-15 23:40] LABS: BILIRUBIN,TOTAL < 0.1 mg/dL (0.2-1.3)
[2018-01-15 23:52] LABS: RBCS (WET MOUNT) NO RBCS SEEN; T.VAGINALIS (WET MOUNT) NO TRICHOMONAS SEEN; WBCS (WET MOUNT) NO WBCS SEEN; YEAST (WET MOUNT) NO YEAST SEEN
--- NOTE | 2018-01-16 | RADIOLOGY REPORT (SQ) ---
EXAM DESCRIPTION: XR CHEST 1 VIEW CLINICAL HISTORY: 37 years Female, chest pain COMPARISON: 4.14.18 NUMBER OF VIEWS/TECHNIQUE: 1/AP FINDINGS: Adequate lung volume, small chronic atelectasis or scar in the left lower lung field, normal cardiac silhouette, and intact bony thorax. IMPRESSION: No acute cardiopulmonary findings.
[2018-01-16 01:09] LABS: CHLAM PCR NOT DETECTED (NOT DETECT); GON PCR NOT DETECTED (NOT DETECT)
--- NOTE | 2018-01-16 01:25 | RADIOLOGY REPORT (SQ) ---
EXAM DESCRIPTION: US PELVIS CLINICAL HISTORY: 37 years Female, pelvic pain Comparison: 2 Technique: Transvaginal. LIMITATIONS: None. FINDINGS: 10 cm uterus, 1.5 cm endometrial stripe thickness, 2.9 cm cervical length, 2.6 cm right ovary, and 3.2 cm left ovary appear normal in size, shape, echotexture, and vascularity. No free fluid. IMPRESSION: Normal pelvic sonogram.
[2018-01-16 01:57] VITALS: BP 131/83
== END 2018-01-16 01:56 | disposition home or self-care (01) ==
LOC: ER 19:44
DX: R10.2 Pelvic and perineal pain (principal); M54.5 Low back pain; R07.9 Chest pain, unspecified; G89.29 Other chronic pain; D72.829 Elevated white blood cell count, unspecified; R06.02 Shortness of breath; F17.200 Nicotine dependence, unspecified, uncomplicated; Z87.81 Personal history of (healed) traumatic fracture; Z98.51 Tubal ligation status
CPT/HCPCS: 36415; 71045; 76830; 80053; 81001; 81025; 84484; 85025; 87210; 87491; 87591; 93976; 99284

== ENCOUNTER 2018-03-01 00:55 | Emergency (ER) | payer MEDICAID, OTHER ==
[2018-03-01 01:59] LABS: ABSOLUTE EOSINOPHILS # (AUTO) 0.1 10^3/uL (0.0-0.6); ABSOLUTE LYMPHOCYTES (AUTO) 3.5 10^3/uL (0.5-4.7); ABSOLUTE NEUT (AUTO) 11.7 10^3/uL (1.7-8.2); BASOPHILS % (AUTO) 0.3 % (0-2); EOSINOPHILS % (AUTO) 0.5 % (0-6); HEMOGLOBIN 13.1 g/dL (12.0-15.5); LYMPHOCYTES % (AUTO) 21.2 % (13-45); MEAN CORPUSCULAR HEMOGLOBIN 23.9 pg (27.0-33.4); MEAN CORPUSCULAR HGB CONC 32.7 g/dL (32.0-36.0); MEAN CORPUSCULAR VOLUME 73 fl (80-97); MONOCYTES % (AUTO) 6.4 % (3-13); PLATELET COUNT 345 10^3/uL (150-450); RED BLOOD COUNT 5.48 10^6/uL (3.72-5.28); RED CELL DISTRIBUTION WIDTH 16.8 % (11.5-14.0); SEGMENTED NEUTROPHILS % (AUTO) 71.6 % (42-78); TOTAL CELLS COUNTED % (AUTO) 100 %; WHITE BLOOD COUNT 16.3 10^3/uL (4.0-10.5)
[2018-03-01 02:00] LABS: ALANINE AMINOTRANSFERASE 43 U/L (9-52); ALBUMIN 4.7 g/dL (3.5-5.0); ALKALINE PHOSPHATASE 85 U/L (38-126); ANION GAP 15 (5-19); ASPARTATE AMINO TRANSFERASE 37 U/L (14-36); BILIRUBIN,DIRECT 0.3 mg/dL (0.0-0.4); BILIRUBIN,TOTAL 0.6 mg/dL (0.2-1.3); BLOOD UREA NITROGEN 10 mg/dL (7-20); CALCIUM 10.6 mg/dL (8.4-10.2); CARBON DIOXIDE 21 mmol/L (22-30); CHLORIDE 108 mmol/L (98-107); GLUCOSE 95 mg/dL (75-110); POTASSIUM 3.6 mmol/L (3.6-5.0); SODIUM 144.2 mmol/L (137-145); TOTAL PROTEIN 7.9 g/dL (6.3-8.2)
[2018-03-01 02:09] LABS: ACETAMINOPHEN < 10 ug/mL (10-30); ALCOHOL < 10 mg/dL (NONE DETECTED); SALICYLATE < 1.0 mg/dL (2.0-20.0)
[2018-03-01 02:12] LABS: APPEARANCE,URINE CLEAR; BILIRUBIN,URINE NEGATIVE (NEGATIVE); COLOR,URINE YELLOW; GLUCOSE, URINE NEGATIVE (NEGATIVE); KETONES,URINE TRACE mg/dL (NEGATIVE); LEUKOCYTE ESTERASE,URINE TRACE (NEGATIVE); NITRITE,URINE NEGATIVE (NEGATIVE); PROTEIN,URINE NEGATIVE (NEGATIVE); URINE SPECIFIC GRAVITY 1.005; UROBILINOGEN,URINE NEGATIVE mg/dL (<2.0)
--- NOTE | 2018-03-01 02:28 | ER Document Report ---
ED General - General Chief Complaint: Psych Problem Stated Complaint: PSYCH EVAL Time Seen by Provider: 03/01/18 02:04 Notes: Patient is a 37-year-old female who was sent in by ambulance by her due to anxiety and stress. Patient does have a previous psychiatric disorder. Patient herself is hard to keep on task. She talks about her neighbor who she just found out as her grandmother and then switch his tube talking about people accusing her of stealing water balls and then switches again do something about her kids. She is very tangential in her thought process and is speaking rapidly and easily becomes agitated. She appears very manic on my discussion with her. She says she is not depressed. She says she is not suicidal homicidal. She says she was recently given medication that she thinks is Xanax by her doctor. She says that she thinks this is what made her worse. She denies any chronic medical problems other than her chronic back pain. TRAVEL OUTSIDE OF THE [place] IN LAST 30 DAYS: No - Related Data Allergies/Adverse Reactions: No Known Allergies Allergy (Verified 01/15/18 19:53) Past Medical History - Social History Smoking Status: Unknown if Ever Smoked Frequency of alcohol use: None Drug Abuse: None Family History: Arthritis, CVA, Hyperlipidemia Endocrine Medical History: Reports: Hx Diabetes Mellitus Type 2 - Gestational Renal/ Medical History: Denies: Hx Peritoneal Dialysis Musculoskeltal Medical History: Reports Hx Arthritis, Reports Hx Musculoskeletal Trauma - hip pelvic femur coccyx fracture Psychiatric Medical History: Reports: Hx Anxiety, Hx Bipolar Disorder, Hx Depression Traumatic Medical History: Reports: Hx Fractures - hip pelvic femur coccyx Past Surgical History: Reports: Hx Section - Immunizations Immunizations up to date: Yes Hx Diphtheria, Pertussis, Tetanus Vaccination: Yes Review of Systems - Review of Systems Notes: My Normal Review Basic REVIEW OF SYSTEMS: CONSTITUTIONAL : Denies fever, chills, or sweats. Denies recent illness. RESPIRATORY: Denies cough, cold, or chest congestion. Denies shortness of breath, difficulty breathing, or wheezing. GASTROINTESTINAL: Denies abdominal pain. Denies nausea, vomiting, or diarrhea. GENITOURINARY: Denies difficulty urinating, painful urination, burning, frequency, or blood in urine. FEMALE GENITOURINARY: Denies vaginal bleeding, abnormal or irregular periods. MUSCULOSKELETAL: Chronic back pain SKIN: Denies rash or skin lesions. NEUROLOGICAL: Denies altered mental status or loss of consciousness. Denies headache. Denies weakness or paralysis or loss of use of either side. Denies problems with gait or speech. Denies sensory or motor loss. PSYCHIATRIC: Flight of ideas. Agitation. ALL OTHER SYSTEMS REVIEWED AND NEGATIVE. Physical Exam - Vital signs Vitals: Temp Pulse Resp BP Pulse Ox 98.8 F 114 H 16 128/79 H 94 03/01/18 01:11 03/01/18 01:11 03/01/18 01:11 03/01/18 01:11 03/01/18 01:11 - Notes Notes: General Appearance: Well nourished, alert, patient easily agitated and very upset., no acute distress, no obvious discomfort. Vitals: reviewed, See vital signs table. Head: no swelling or tenderness to the head Eyes: PERRL, EOMI, Conjuctiva clear Mouth: No decreasd moisture Lungs: No wheezing, No rales, No rhonci, No accessory muscle use, good air exchange bilaterally. Heart: Normal rate, Regular rythm, No murmur, no rub Abdomen: Normal BS, soft, No rigidity, No abdominal tenderness, No guarding, no rebound, no abdominal masses, no organomegaly Extremities: strength 5/5 in all extremities, good pulses in all extremities, no swelling or tenderness in the extremities, no edema. Skin: warm, dry, appropriate color, no rash Neuro: speech clear, oriented x 3, agitated and manic affect, responds appropriately to questions. Course - Re-evaluation Re-evalutation: 03/01/18 05:48 Patient did have some increasing agitation will not stay in her room. She was given 2 mg of Ativan IM. Patient does have signs of celia with agitation. I did fill out paperwork for 24-hour hold. We will have psychiatry evaluate her. Patient is medically stable for psychiatric evaluation. Dictation of this chart was performed using voice recognition software; therefore, there may be some unintended grammatical errors. - Vital Signs Vital signs: Temp Pulse Resp BP Pulse Ox 98.0 F 128 H 24 H 151/80 H 98 03/01/18 05:18 03/01/18 05:18 03/01/18 05:18 03/01/18 05:18 03/01/18 05:18 - Laboratory Result Diagrams: 03/01/18 01:20 03/01/18 01:20 Laboratory results interpreted by me: 03/01/18 03/01/18 03/01/18 01:20 01:20 01:20 WBC 16.3 H RBC 5.48 H MCV 73 L MCH 23.9 L RDW 16.8 H Absolute Neutrophils 11.7 H Chloride 108 H Carbon Dioxide 21 L Calcium 10.6 H AST 37 H Urine Ketones TRACE H Ur Leukocyte Esterase TRACE H Salicylates < 1.0 L Acetaminophen < 10 L - EKG Interpretation by Me Additional EKG results interpreted by me: 03/01/18 03:19 EKG is reviewed and interpreted by me. EKG shows normal sinus rhythm with rate of [address] segment elevation or depression. No ischemic T-wave inversions. NC interval, QRS duration, QTc intervals are within normal range. Old EKG for comparison is from October 19, 2015.
[2018-03-01 03:17] LABS: URINE AMPHETAMINES SCREEN NEGATIVE; URINE BARBITURATES SCREEN NEGATIVE; URINE BENZODIAZEPINES SCREEN NEGATIVE; URINE COCAINE SCREEN NEGATIVE; URINE MARIJUANA (THC) SCREEN NEGATIVE; URINE METHADONE SCREEN NEGATIVE; URINE PHENCYCLIDINE SCREEN NEGATIVE
[2018-03-01] MEDS ORDERED: LORAZEPAM INJ 2 MG/1 ML VIAL IM ONE ×2 (05:29→22:55)
--- NOTE | 2018-03-01 08:01 | EKG REPORT ---
SEVERITY:- NORMAL ECG - SINUS RHYTHM : Confirmed by: Tawny Brothers MD 01-Mar-2018 08:00:17
--- NOTE | 2018-03-01 09:42 | ER Document Report ---
Doctor's Note Notes: 03/01/18 09:41 This is a follow-up evaluation: Primary diagnosis-hallucination, manic phase Patient is here for the above reason, has been doing well, currently has --- complaint. None On examination-vitals reviewed in the chart. General exam: Alert oriented 3 not in any acute distress HEENT: Normocephalic atraumatic pupils are equal reactive to light, Lungs-clear breath sounds no rales or wheezing. Cardiovascular system: Normal S1-S2 no murmurs. Gastrointestinal: Normal breath sounds, no organomegaly positive bowel sounds. Genitourinary: Skin: No lesions noted, no rash Psychiatric: Diagnoses: Hallucination and manic phase Plan: Continue to monitor
--- NOTE | 2018-03-01 10:05 | PSYCHOLOGICAL NOTE ---
Psych Note - Psych Note Psych Note: Reason for Consult: Manic Patient is a 37-year-old female who was sent in by ambulance by her due to anxiety and stress. Patient does have a previous psychiatric disorder. Patient herself is hard to keep on task. She talks about her neighbor who she just found out as her grandmother and then switch his tube talking about people accusing her of stealing water balls and then switches again do something about her kids. She is very tangential in her thought process and is speaking rapidly and easily becomes agitated. Patient disclosed that she has a diagnosis of depression and anxiety and is prescribed Xanax. She disclosed that she remembers EMS bringing her to [facility]. She reports she does not understand why she is currently at the hospital but states she does not want to go to the third floor. When asked for clarification she states "[place] you know the third floor." Patient reports she is also been inpatient psychiatric treatment at [place]. Patient had difficulty staying on topic and asked if there was chocolate as part of her breakfast then stated that she might not be able to eat it because she had gestational diabetes. She discloses that she was "years ago" she thinks it was probably about 2011. Patient disclosed that she has many children and they are at home. She reports that she has to be supervised with the children. She reports that she would like information for outpatient services for herself and for her son but is adamantly against [facility]. Patient then skips back to previous evening saying she was giving a bath to the girls with vinegar and her told her she had to come to the hospital; "I do not think he knew that the vinegar would help." Clinician spoke with patient's Lm who discloses that the last few days the patient has been "out of it." He reports the patient's mother when the patient was young however the patient was talking to somebody from her mother's side on the phone a few days ago and ever since then has been acting differently; "something happened during that call." He reports the patient has been acting "childlike" and confused. He reports the patient has been under involuntary commitment before. When asked about the children he confirms everything was fine the patient was bathing the children and vinegar because they came in contact with something (could not remember the exact environmental agent they came into contact with that would require a vinegar bath). He reports the patient frequently looks up things on Web [employer]. [facility] disclosed the patient has diagnosis of bipolar and adjustment disorder and receives Prozac. Behavior health team contacted [facility]. Patient does not have a current open case that would outline the need to be supervised with her children. Patient is alert and orientated to person, place, and time. Mood is paranoid with flat affect. Patient denies suicidal and homicidal ideation. Clinician notes patient has psychomotor agitation is constantly, pacing is noted to not have slept, constantly is coming out of her room asking what names are being said, and is difficult to be redirected. Patient's thought processes can briefly stay on topic however then derails. Eye contact is fair. Intellectual abilities appear to be within the average range. Attention and concentration are poor. Insight, judgment, impulse control are poor. Medication recommendations per [facility] contracted psychiatrist Dr. Marilin SCHRADER are as follows 1. Zyprexa 10 mg IM once 2. Cogentin 1 mg IM once 3. Zyprexa 5 mg twice daily 4. Cogentin 1 mg daily Diagnosis 296.44 (F31.2) bipolar 1 disorder with psychotic features 309.9 (F 43.20) adjustment disorder; unspecified Impression/Plan: Patient is recommended to continue under IVC. Patient is no longer presenting Manic; however, she is presenting paranoid with confusion. Medication recommendations have been provided and patient will be reevaluated. Dr. Rodgers was consulted on the care and management of this patient; attending physician is in agreement with recommendations and disposition.
[2018-03-01] MEDS ORDERED: CETIRIZINE 10 MG TABLET PO ONE (13:41)
[2018-03-01] MEDS ORDERED: BENZTROPINE MESYLATE 1 MG TABLET PO ONE (13:41)
[2018-03-01] MEDS ORDERED: BENZTROPINE MESYLATE 1 MG TABLET PO SCH (13:45)
[2018-03-01] MEDS ORDERED: IBUPROFEN 600 MG TABLET PO ONE (22:55)
--- NOTE | 2018-03-02 10:18 | ER Document Report ---
Doctor's Note Notes: 03/02/18 10:12 Rounds: Chart reviewed and patient interviewed. Being evaluated for celia. Patient is currently crying uncontrollably and says she is worried she has cancer. Vital signs were all normal. Labs were normal except for a white count of 16,300. Patient appears to be medically stable for transfer or discharge. Leonor Russell MD
[2018-03-02] MEDS ORDERED: BENZTROPINE MESYLATE 1 MG TABLET PO ONE ×2 (10:28→12:00)
[2018-03-02] MEDS: OLANZAPINE 5 MG TABLET PO SCH ×2 (11:54→17:06)
--- NOTE | 2018-03-02 14:03 | PSYCHOLOGICAL NOTE ---
Psych Note - Psych Note Psych Note: Reason for Consult: Manic Patient is a 37-year-old female who was sent in by ambulance by her due to anxiety and stress. Patient does have a previous psychiatric disorder. Patient herself is hard to keep on task. She talks about her neighbor who she just found out as her grandmother and then switch his tube talking about people accusing her of stealing water balls and then switches again do something about her kids. She is very tangential in her thought process and is speaking rapidly and easily becomes agitated. Clinician conducted checking with patient Patient disclosed her conversation on the phone was with her family member Evangelina who disclosed that her uncle committed suicide. Patient then started to discuss how "Flako her brother cousin" tried to commit suicide also. Patient disclosed that she always thought her mother was an only child but Evangelina explained to her there is other siblings. She discloses that her father first sisters then her mother so she has many "brother cousins." Patient states that she "figured this all out from TV." Patient states that she wants her children back and needs to be supervised with them. (Clinician notes patient does not have an open case with DSS however DSS did disclose that she had a open case 1 year ago). Patient is noted to frequently come out of her room asking about where "the children are." Medication recommendations per [facility] contracted psychiatrist Dr. Marilin SCHRADER are as follows 1. Zyprexa 5 mg twice daily 2. Cogentin 2 mg daily 3. Thorazine 50 mg 3 times daily Diagnosis 296.44 (F31.2) bipolar 1 disorder with psychotic features 309.9 (F 43.20) adjustment disorder; unspecified Impression\\plan. Patient is recommended continue under IVC. Patient continues to have difficulty with paranoia and confusion. Patient still has not slept more than 1 hour and continues to disclose concerns about "brother cousins" possible suicide from her mother side of the family and preoccupation with DSS case which behavior health confirmed has been closed since approximately June. New medication recommendations have been provided. Dr. Rodgers was consulted and the care management this patient; attending physician is agreement with recommendations and disposition.
[2018-03-02] MEDS: CHLORPROMAZINE HCL 50 MG TABLET PO SCH (17:06)
[2018-03-02] MEDS ORDERED: LORAZEPAM INJ 2 MG/1 ML VIAL IM ONE (22:34)
[2018-03-03] MEDS ORDERED: BENZTROPINE MESYLATE 1 MG TABLET PO SCH (08:00)
[2018-03-03] MEDS: CHLORPROMAZINE HCL 50 MG TABLET PO SCH ×3 (09:08→17:28)
[2018-03-03] MEDS: BENZTROPINE MESYLATE 1 MG TABLET PO SCH (09:08)
[2018-03-03] MEDS: OLANZAPINE 5 MG TABLET PO SCH (09:08)
--- NOTE | 2018-03-03 10:43 | ER Document Report ---
Doctor's Note Notes: 03/03/18 10:42 Rounds: Chart reviewed. Patient sleeping so I did not awaken her. Nurses says that she has not been sleeping very much at all. Vital signs are all normal. No new lab studies to review. Patient appears to be medically stable for transfer or discharge. Leonor Russell MD
[2018-03-03] MEDS: RISPERIDONE 1 MG TABLET PO SCH (17:28)
[2018-03-03] MEDS ORDERED: LORAZEPAM INJ 2 MG/1 ML VIAL IM ONE (19:29)
[2018-03-03] MEDS ORDERED: CHLORPROMAZINE HCL 50 MG TABLET PO SCH (22:00)
[2018-03-04] MEDS ORDERED: NICOTINE 21 MG/24 HR PATCH.TD24 TD ONE (01:32)
[2018-03-04] MEDS: BENZTROPINE MESYLATE 1 MG TABLET PO SCH (09:30)
[2018-03-04] MEDS: RISPERIDONE 1 MG TABLET PO SCH (09:30)
[2018-03-04] MEDS: CHLORPROMAZINE HCL 50 MG TABLET PO SCH (09:31)
[2018-03-04] MEDS ORDERED: HALOPERIDOL 5 MG TABLET PO SCH (10:00)
[2018-03-04] MEDS ORDERED: ZIPRASIDONE HCL 20 MG CAPSULE PO SCH (10:00)
--- NOTE | 2018-03-04 10:22 | ER Document Report ---
Doctor's Note Notes: 03/04/18 10:21 The patient is standing up in her room right now, she is quite calm. She states she does feel much better today than she did yesterday. At this time she is [facility] [place] [facility]. She does appear to be a little more despondent when we discussed her social situation and involves her living by herself, and her spouse bringing her children over for supervised visits. Medication changes were made stopping the Thorazine and Risperdal. The Cogentin was left unchanged. We added Haldol 10 mg TID and Geodon 20 mg BID. The patient will remain under IVC psychiatric hold. 03/04/18 16:16 Patient has been accepted at the [facility] and will be transported sometime today.
--- NOTE | 2018-03-04 11:17 | PSYCHOLOGICAL NOTE ---
Psych Note - Psych Note Psych Note: Interacted with Patient multiple times throughout the day as she was considered very high maintenance as evidenced by her requiring constant redirection to return to her room, to stop yelling out random names, to stop trying to leave, stop throwing things in her room, etc. Attempts to talk with her was futile as she would digress into crying without tears, yelling about nothing, and walking in circles. She talked about wanting to leave, go home, see her children, etc. She indicated nothing was wrong with her and just wanted to go home. Patient eventually required restraints and as needed medication secondary to her increased need for redirection and inability to follow directions. Once restrained, she made multiple attempts to get out of restraints, at which point she was successful on at least two occasions. She continued to disengage the breaks of the bed, and wiggle within the bed to move it against the wall, etc. When advised to stop the behavior, she did not. She was advised multiple times to stop yelling as well and she did not. The as needed medications were not successful in managing her behaviors and she remained in restraints. Overall, Patient's presentation is felt to be behavioral in nature. When talking with Patient she easily turned her emotions on and off, and was able to redirect her presentation when 1:1. Her mood was labile and affect at times mood congruent. She denied suicidal / homicidal ideation, intent or plan. She denied auditory /visual hallucinations, and delusional thought processes were present at times regarding her children. Conversational speech was loud at times and yelling, but rate and prosody was within normal limits. Eye contact was well maintained. Intellectual abilities were estimated within the average range. Attention and concentration was impaired. Insight, judgment,a nd impulse control was impaired. Medication recommendations from psychiatric provider: 1. Thorazine 50 mg every 6 hours 2. Risperdal 1 mg every 12 hours 3. Cogentin 2 mg daily Impression / Plan: Patient to remain on IVC. She remains somewhat delusional with impaired attention and concentration, evidence of increasing verbal aggression with poor redirection. She continues to get very little sleep and is responding poorly to medication intervention efforts. [facility] though her presentation is believed to mostly behavioral in nature. ED Physician in agreement with recommendation and disposition.
--- NOTE | 2018-03-04 11:51 | PSYCHOLOGICAL NOTE ---
Psych Note - Psych Note Psych Note: Reason for Consult: Manic Patient is a 37-year-old female who was sent in by ambulance by her due to anxiety and stress. Patient does have a previous psychiatric disorder. Patient herself is hard to keep on task. She talks about her neighbor who she just found out as her grandmother and then switch his tube talking about people accusing her of stealing water balls and then switches again do something about her kids. She is very tangential in her thought process and is speaking rapidly and easily becomes agitated. Clinician conducted checking with patient Patient is calm and sits on her bed however is unable to complete thoughts ( flight of thoughts). Patient starts by identifying the she is remembering things from when she was a child stating at started age 7. Patient then became very concerned stating that she did not want to get people in trouble and when asked for clarification she stated "I am pretty sure some people are ...they were killed." Patient started jumping around on topics is very difficult to follow at times she appeared to be discussing with clinician the possibility of getting her children away and at other times stating that her neighbor might be her "real grandmother." Medication recommendations per [facility]'s contracted psychiatrist Dr. Marilin SCHRADER are as follows 1. Discontinue Zyprexa, Thorazine and Risperdal 2. Keep Cogentin 2 mg daily 3. Start Haldol 10 mg 3 times daily 4. Start Geodon 20 mg twice daily Diagnosis 296.44 (F31.2) bipolar 1 disorder with psychotic features 309.9 (F 43.20) adjustment disorder; unspecified Impression/Plan: Patient is recommended to continue under IVC. Patient is noted to have not slept in more than a few minutes increments during her [facility] ED visit. Medication change recommendations have been provided. Dr. Rodgers was consulted on the care and management of this patient; attending physician is in agreement with recommendations and disposition. Patient was accepted to [facility] ; transportation will occur today.
[2018-03-04 16:31] VITALS: BP 130/88
== END 2018-03-04 16:20 ==
LOC: ER 00:55
DX: F41.9 Anxiety disorder, unspecified (principal); G89.29 Other chronic pain; M54.9 Dorsalgia, unspecified; R44.3 Hallucinations, unspecified; F31.2 Bipolar disorder, current episode manic severe with psychotic features; F43.20 Adjustment disorder, unspecified
CPT/HCPCS: 93005; 99285; 96372; 36415; 80307 ×4; 84703; 85025; 80053; 81001; 93010; J3490 ×14; J2060 ×3

== ENCOUNTER 2018-04-17 11:05 | Emergency (ER) | payer OTHER, MEDICAID ==
[2018-04-17] MEDS ORDERED: DEXAMETHASONE 4 MG TABLET PO ONE (12:37)
[2018-04-17] MEDS ORDERED: ACETAMINOPHEN 325 MG TABLET PO ONE (12:37)
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
[2018-04-17 14:09] VITALS: BP 111/65
== END 2018-04-17 14:00 | disposition home or self-care (01) ==
LOC: ER 11:05
DX: M54.5 Low back pain (principal); M54.9 Dorsalgia, unspecified; G89.29 Other chronic pain; V87.7XXA Person injured in collision between other specified motor vehicles (traffic), initial encounter; Z79.899 Other long term (current) drug therapy; F17.210 Nicotine dependence, cigarettes, uncomplicated; E11.9 Type 2 diabetes mellitus without complications
CPT/HCPCS: 72110; 99284; 99406

== ENCOUNTER 2018-11-15 09:44 | Emergency (ER) | payer MEDICAID, OTHER ==
[2018-11-15] MEDS ORDERED: IBUPROFEN 800 MG TABLET PO ONE (10:58)
[2018-11-15] MEDS ORDERED: LOPERAMIDE HCL 2 MG CAPSULE PO ONE (10:59)
--- NOTE | 2018-11-15 11:00 | ER Document Report ---
HPI - HPI Time Seen by Provider: 11/15/18 10:38 Onset: This morning Onset/Duration: Gradual Quality of pain: Achy Pain Level: 4 Context: Patient presents complaining of sore throat today and diarrhea that started today. Patient denies any fever nausea or vomiting. Patient does complain of lower pelvic tenderness. Patient also reports frontal headache pain. Patient has not had any medications to help with her symptoms. Associated Symptoms: Headache, Nausea, Sore throat. denies: Nonproductive cough, Productive cough, Earache, Fever, Vomiting Exacerbated by: Denies Relieved by: Denies Similar symptoms previously: Yes Recently seen / treated by doctor: No - ROS ROS below otherwise negative: Yes Systems Reviewed and Negative: Yes All other systems reviewed and negative - CONSTITUTIONAL Constitutional: DENIES: Fever, Chills - EENT EENT: REPORTS: Sore Throat. DENIES: Congestion - CARDIOVASCULAR Cardiovascular: DENIES: Chest pain - RESPIRATORY Respiratory: DENIES: Coughing - GASTROINTESTINAL Gastrointestinal: REPORTS: Abdominal Pain, Nausea, Diarrhea. DENIES: Patient vomiting - URINARY Urinary: DENIES: Dysuria - REPRODUCTIVE Reproductive: DENIES: : - DERM Skin Color: Normal Skin Problems: None Past Medical History - General Information source: Patient - Social History Smoking Status: Current Every Day Smoker Smoking Education Provided: Yes Frequency of alcohol use: None Drug Abuse: None Occupation: None Lives with: Family Family History: Arthritis, CVA, Hyperlipidemia Patient has suicidal ideation: No Patient has homicidal ideation: No Endocrine Medical History: Reports: Hx Diabetes Mellitus Type 2 - Gestational Renal/ Medical History: Denies: Hx Peritoneal Dialysis Musculoskeletal Medical History: Reports Hx Arthritis, Reports Hx Musculoskeletal Deformity, Reports Hx Musculoskeletal Trauma - hip pelvic femur coccyx fracture Psychiatric Medical History: Reports: Hx Anxiety, Hx Bipolar Disorder, Hx Depression Traumatic Medical History: Reports: Hx Fractures - hip pelvic femur coccyx Past Surgical History: Reports: Hx Section, Hx Tubal Ligation - Immunizations Immunizations up to date: Yes Hx Diphtheria, Pertussis, Tetanus Vaccination: Yes Vertical Provider Document - CONSTITUTIONAL Agree With Documented VS: Yes Exam Limitations: No Limitations General Appearance: WD/WN, No Apparent Distress - INFECTION CONTROL TRAVEL OUTSIDE OF THE [place] IN LAST 30 DAYS: No - HEENT HEENT: Atraumatic, Normocephalic, Pharyngeal Tenderness. negative: Pharyngeal Exudate, Pharyngeal Erythema, Tympanic Membrane Red, Tympanic Membrane Bulging - NECK Neck: Normal Inspection, Supple. negative: Lymphadenopathy-Left, Lymphadenopathy-Right Notes: No meningismus - RESPIRATORY Respiratory: Breath Sounds Normal, No Respiratory Distress, Chest Non-Tender. negative: Rhonchi, Wheezing - CARDIOVASCULAR Cardiovascular: Regular Rate, Regular Rhythm, No Murmur - GI/ABDOMEN Gastrointestinal: Abdomen Soft, Abdomen Tender - Suprapubic, Normal Bowel Sounds. negative: Abdominal Guarding - BACK Back: Normal Inspection. negative: CVA Tenderness-Right, CVA Tenderness-Left - MUSCULOSKELETAL/EXTREMETIES Musculoskeletal/Extremeties: MAEW, FROM, Non-Tender - NEURO Level of Consciousness: Awake, Alert, Appropriate Motor/Sensory: No Motor Deficit, No Sensory Deficit - DERM Integumentary: Warm, Dry, No Rash Course - Re-evaluation Re-evalutation: 11/15/18 Patient's abdomen soft, no guarding. Patient nontoxic in appearance. Patient does report some improvement of her headache pain symptoms. 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 No potential airway compromise. Good return precautions discussed. - Vital Signs Vital signs: Temp Pulse Resp BP Pulse Ox 98.1 F 78 16 119/74 100 11/15/18 09:48 11/15/18 09:48 11/15/18 09:48 11/15/18 09:48 11/15/18 09:48 - Laboratory Laboratory results interpreted by me: 11/15/18 12:35 Labs- Entire Visit 11/15/18 11/15/18 11:11 11:11 Urine Color YELLOW Urine Appearance CLOUDY Urine pH 6.0 Ur Specific [place] 1.019 Urine Protein NEGATIVE Urine Glucose (UA) NEGATIVE Urine Ketones NEGATIVE Urine Blood NEGATIVE Urine Nitrite NEGATIVE Urine Bilirubin NEGATIVE Urine Urobilinogen NEGATIVE Ur Leukocyte Esterase SMALL H Urine WBC (Auto) 12 Urine RBC (Auto) 8 Squamous Epi Cells Auto 22 Urine Mucus (Auto) MANY Urine Ascorbic Acid NEGATIVE Urine HCG, Qual NEGATIVE Group A Strep Rapid NEGATIVE Discharge - Discharge Clinical Impression: Viral illness Diarrhea Qualifiers: Diarrhea type: unspecified type Qualified Code(s): R19.7 - Diarrhea, unspecified UTI (urinary tract infection) Qualifiers: Urinary tract infection type: site unspecified Hematuria presence: with hematuria Qualified Code(s): N39.0 - Urinary tract infection, site not specified Condition: Stable Disposition: HOME, SELF-CARE Instructions: Acetaminophen, Cephalexin ([facility]), Diarrhea, Nonspecific ([facility]), Urinary Tract Infection ([facility]), Viral Syndrome ([facility]) Additional Instructions: Return immediately for any new or worsening symptoms Followup with your primary care provider, call tomorrow to make a followup appointment Increase oral fluids and stay well-hydrated Prescriptions: Cephalexin Monohydrate [Keflex 500 mg Capsule] 500 mg PO Q6H 5 Days capsule Forms: Smoking Cessation Education Referrals: [facility] [Provider Group] - Follow up as needed [facility] [Provider Group] - Follow up as needed
[2018-11-15] MEDS ORDERED: ACETAMINOPHEN 325 MG TABLET PO ONE (11:22)
[2018-11-15 11:56] LABS: APPEARANCE,URINE CLOUDY; BILIRUBIN,URINE NEGATIVE (NEGATIVE); COLOR,URINE YELLOW; GLUCOSE, URINE NEGATIVE (NEGATIVE); KETONES,URINE NEGATIVE (NEGATIVE); LEUKOCYTE ESTERASE,URINE SMALL (NEGATIVE); NITRITE,URINE NEGATIVE (NEGATIVE); PROTEIN,URINE NEGATIVE (NEGATIVE); URINE SPECIFIC GRAVITY 1.019; UROBILINOGEN,URINE NEGATIVE mg/dL (<2.0)
[2018-11-15] MEDS ORDERED: CEPHALEXIN 500 MG CAPSULE PO ONE (12:35)
[2018-11-15 12:46] VITALS: BP 116/67
== END 2018-11-15 13:03 | disposition home or self-care (01) ==
LOC: ER 09:44
DX: B34.9 Viral infection, unspecified (principal); N39.0 Urinary tract infection, site not specified; R19.7 Diarrhea, unspecified; J02.9 Acute pharyngitis, unspecified; R10.2 Pelvic and perineal pain; R51 Headache; R10.9 Unspecified abdominal pain; R11.0 Nausea; F17.200 Nicotine dependence, unspecified, uncomplicated
CPT/HCPCS: 99284; 87070; 87880; 81025; 81001; J3490 ×2

== ENCOUNTER 2019-07-14 08:13 | Emergency (ER) | payer OTHER, MEDICAID ==
[2019-07-14 08:18] VITALS: BP 123/76
--- NOTE | 2019-07-14 09:29 | ER Document Report ---
HPI - HPI Patient complains to provider of: generalized pain Time Seen by Provider: 07/14/19 09:15 Pain Level: 4 Context: 39-year-old female with sciatica presents to the emergency department with generalized pain worse in her bilateral arms and legs. Patient states this started 10 days ago and when she lifted up on the Internet week she needed to get seen. Her primary provider is the [facility] and she has not seen them for this problem. Patient describes the pain as aching and constant, not made better or worse by anything, does not radiate but is just present, no sensation deficits, no strength deficits. Patient has tried multiple ikwu-awf-uhociiy remedies with no success. Patient states that she was prescribed gabapentin and baclofen from the [facility] but she is not compliant with her medications. Patient denies any confusion or neck deafness, fevers, recent illness, chest pain, acute shortness of breath, abdominal pain, nausea/vomiting/diarrhea/constipation, does complain of urinary frequency with no dysuria. - REPRODUCTIVE LMP: Reproductive: DENIES: : Past Medical History - Social History Smoking Status: Current Every Day Smoker Chew tobacco use (# tins/day): No Frequency of alcohol use: None Drug Abuse: None Family History: Arthritis, CVA, Hyperlipidemia Patient has suicidal ideation: No Patient has homicidal ideation: No Endocrine Medical History: Reports: Hx Diabetes Mellitus Type 2 - Gestational Renal/ Medical History: Denies: Hx Peritoneal Dialysis Musculoskeletal Medical History: Reports Hx Arthritis, Reports Hx Musculoskeletal Deformity, Reports Hx Musculoskeletal Trauma - hip pelvic femur coccyx fracture Psychiatric Medical History: Reports: Hx Anxiety, Hx Bipolar Disorder, Hx Depression Traumatic Medical History: Reports: Hx Fractures - hip pelvic femur coccyx Past Surgical History: Reports: Hx Section, Hx Tubal Ligation - Immunizations Immunizations up to date: Yes Hx Diphtheria, Pertussis, Tetanus Vaccination: Yes Vertical Provider Document - CONSTITUTIONAL Notes: PHYSICAL EXAMINATION: Reviewed vital signs and charting by RN GENERAL: Alert, interacts well. No acute distress. HEAD: Normocephalic, atraumatic. EYES: Pupils equal and round. Extraocular movements intact. ENT: Oral mucosa moist, tongue midline. NECK: Full range of motion. Trachea midline. LUNGS: Clear to auscultation bilaterally, no wheezes, rales, or rhonchi. No respiratory distress. HEART: Regular rate and rhythm. No murmur ABDOMEN: soft, non-tender. No distention. Bowel sounds present EXTREMITIES: Moves all 4 extremities spontaneously. No edema, No cyanosis. NEURO: A &O X 3, normal speech, normal gailt, PERRL, EOMI, SILT, follows commands in all 4 extremities, no gross abnormalities of cranial nerves, no focal neuro deficits, no pronator drift, [id number] testing normal, rapid alternating hand movements normal, [id number] normal, veterinarian poultry strength 5/5 bilateral, 5/5 strength in both proximal and distal upper and lower extremities PSYCH: Normal affect, normal mood. SKIN: Warm, dry, normal turgor. No rashes or lesions noted. - INFECTION CONTROL TRAVEL OUTSIDE OF THE [place] IN LAST 30 DAYS: No Course - Re-evaluation Re-evalutation: 07/14/19 10:19 Well-appearing and nontoxic. Patient with what appears to be some type of a pain syndrome but she has been noncompliant with her baclofen and gabapentin. Patient states she has not taken ibuprofen because [facility]. I have verified this and it is okay to take ibuprofen. I have educated patient that gabapentin needs to be taken as prescribed 3 times a day for the effects to work. Also, she complained of urinary frequency but urinalysis was negative for urinary tract infection. I educated patient and she did receive Toradol 30 mg IM once. She is stable for discharge. - Vital Signs Vital signs: Temp Pulse Resp BP Pulse Ox 98.2 F 92 20 123/76 99 07/14/19 08:17 07/14/19 08:17 07/14/19 08:17 07/14/19 08:17 07/14/19 08:17 Discharge - Discharge Clinical Impression: Generalized pain Condition: Good Disposition: HOME, SELF-CARE Additional Instructions: You were seen in the emergency department for generalized pain of your arms and legs. Your work-up was very reassuring, you had a normal neurologic exam, and normal physical exam. It is unclear why you are having this pain but your work- up here was overall very reassuring. Urinalysis was negative for urinary tract infection. It is important that if you decide to take the gabapentin you do take it 3 times a day as it can greatly help these types of symptoms. Also, there is no conflict with taking the gabapentin and ibuprofen or naproxen. You can take ibuprofen 600 mg every 6 hours with food and/or milk or you can take naproxen 500 mg every 12 hours with food and/or milk. Please do not take both of these as they are in the same class and they do the same thing. Please return to the emergency department if you develop acute weakness, confusion, slurred speech, or you have any other concerning symptoms at all. Forms: Return to Work
[2019-07-14] MEDS ORDERED: KETOROLAC TROMETHAMINE INJ/PF 30 MG/1 ML SDV IM ONE (09:32)
[2019-07-14 10:15] LABS: APPEARANCE,URINE SLIGHTLY-CLOUDY; BILIRUBIN,URINE NEGATIVE (NEGATIVE); COLOR,URINE YELLOW; GLUCOSE, URINE NEGATIVE (NEGATIVE); KETONES,URINE NEGATIVE (NEGATIVE); LEUKOCYTE ESTERASE,URINE NEGATIVE (NEGATIVE); NITRITE,URINE NEGATIVE (NEGATIVE); PROTEIN,URINE NEGATIVE (NEGATIVE); UROBILINOGEN,URINE NEGATIVE mg/dL (<2.0)
== END 2019-07-14 10:38 | disposition home or self-care (01) ==
LOC: ER 08:13
DX: M79.601 Pain in right arm (principal); M79.602 Pain in left arm; M79.604 Pain in right leg; M79.605 Pain in left leg; F17.200 Nicotine dependence, unspecified, uncomplicated
CPT/HCPCS: 99283; 96372; 81025; 81001; J1885

== ENCOUNTER → 2019-10-02 | Outpatient (CLI) | payer MEDICAID | LOC: OD 15:45 | PROVIDERS: ATTEND Nurse Practitioner Acute Care | DX: R30.0 Dysuria (principal) | CPT/HCPCS: 87086 ==

== ENCOUNTER 2019-10-19 09:10 | Emergency (ER) | payer MEDICAID ==
[2019-10-19 09:16] VITALS: BP 133/82
== END 2019-10-19 10:33 | disposition left against medical advice (07) ==
LOC: ER 09:10
DX: Z53.21 Procedure and treatment not carried out due to patient leaving prior to being seen by health care provider (principal)

== ENCOUNTER 2019-10-19 22:07 | Emergency (ER) | payer MEDICAID ==
--- NOTE | 2019-10-19 23:45 | ER Document Report ---
ED Medical Screen (RME) - General Chief Complaint: Possible Kidney Stone Stated Complaint: ABDOMINAL PAIN Primary Care Provider: DEVI TELLO NP [Primary Care Provider] - Follow up as needed Notes: Patient is a 39-year-old female with no significant past medical history who presents to the emergency department with a chief complaint of bilateral abdominal pain that began a couple weeks ago. She has been back and forth to the urgent care several times. States she was finally told today on a KUB that she had what appeared to be bilateral kidney stones. She states they told her her white blood cell count was elevated but did not collect a urine sample. They did not give her any medicines with the exception of Zofran. They [facility] the [facility] or come to the emergency department for further care and management. I have treated and performed a rapid initial assessment of this patient. A comprehensive ED assessment and evaluation of the patient, analysis of test results and completion of medical decision making process will be conducted by additional ED providers. PHYSICAL EXAMINATION: GENERAL: Well-appearing, well-nourished and in no acute distress. A&Ox4. Answers questions appropriately. TRAVEL OUTSIDE OF THE [place] IN LAST 30 DAYS: No - Related Data Allergies/Adverse Reactions: No Known Allergies Allergy (Verified 07/14/19 08:19) Past Medical History - Social History Chew tobacco use (# tins/day): No Frequency of alcohol use: Rare Drug Abuse: None Endocrine Medical History: Reports: Hx Diabetes Mellitus Type 2 - Gestational Renal/ Medical History: Denies: Hx Peritoneal Dialysis Musculoskeltal Medical History: Reports Hx Arthritis, Reports Hx Musculoskeletal Deformity, Reports Hx Musculoskeletal Trauma - hip pelvic femur coccyx fracture Psychiatric Medical History: Reports: Hx Anxiety, Hx Bipolar Disorder, Hx Depression Traumatic Medical History: Reports: Hx Fractures - hip pelvic femur coccyx Past Surgical History: Reports: Hx Section, Hx Tubal Ligation - Immunizations Immunizations up to date: Yes Hx Diphtheria, Pertussis, Tetanus Vaccination: Yes Physical Exam - Vital signs Vitals: Temp Pulse Resp BP Pulse Ox 98.6 F 110 H 20 134/86 H 97 10/19/19 22:44 10/19/19 22:44 10/19/19 22:44 10/19/19 22:44 10/19/19 22:44 Course - Vital Signs Vital signs: Temp Pulse Resp BP Pulse Ox 98.6 F 110 H 20 134/86 H 97 10/19/19 22:44 10/19/19 22:44 10/19/19 22:44 10/19/19 22:44 10/19/19 22:44 Doctor's Discharge - Discharge Referrals: DEVI TELLO NP [Primary Care Provider] - Follow up as needed
[2019-10-20 00:29] LABS: APPEARANCE,URINE SLIGHTLY-CLOUDY; BILIRUBIN,URINE NEGATIVE (NEGATIVE); COLOR,URINE YELLOW; GLUCOSE, URINE 50 mg/dL (NEGATIVE); KETONES,URINE TRACE mg/dL (NEGATIVE); LEUKOCYTE ESTERASE,URINE SMALL (NEGATIVE); NITRITE,URINE NEGATIVE (NEGATIVE); PROTEIN,URINE NEGATIVE (NEGATIVE); URINE SPECIFIC GRAVITY 1.028
--- NOTE | 2019-10-20 01:16 | RADIOLOGY REPORT (SQ) ---
CT abdomen and pelvis without contrast on 10/20/2019 at 12:42 AM CLINICAL INDICATION: Bilateral back pain TECHNIQUE: Multiple axial images are obtained throughout the abdomen and pelvis without the administration of contrast. This exam was performed according to our departmental dose-optimization program, which includes automated exposure control, adjustment of the mA and/or kV according to patient size and/or use of iterative reconstruction technique. Total DLP is 952.82 mGy*cm. COMPARISON: 10/24/2017 FINDINGS: Abdomen: The lung bases are clear. There is fatty infiltration of the liver. There is stable small 9 mm right adrenal nodule that is most consistent with a small adenoma with no follow-up recommended. There are a few small nonobstructing left renal stones and a tiny nonobstructing right renal stone. There are no ureteral stones and no hydronephrosis. The unenhanced solid abdominal organs are otherwise unremarkable. There is no abdominal adenopathy. There is no free fluid or free air within the abdomen. There is diverticulosis. The abdominal portion of the GI tract is otherwise unremarkable. Pelvis: Pelvic organs appear unremarkable by CT. There is no free fluid in the pelvis. There is no pelvic adenopathy. There is diverticulosis. The pelvic portion of the GI tract including the appendix is otherwise unremarkable. No bony abnormality is noted. IMPRESSION: 1. Left greater than right nephrolithiasis. 2. Diverticulosis. 3. Fatty infiltration of the liver.
[2019-10-20 01:54] VITALS: BP 142/96
[2019-10-20] MEDS ORDERED: HYDROCODONE/ACETAMINOPHEN 5-325 MG (6 TAB/ER DISP) PO PRN (04:35)
--- NOTE | 2019-10-20 04:54 | ER Document Report ---
Entered by QI STRAUSS SCRIBE 10/20/19 0414 Acting as scribe for:ANDRES ST IV, MD ED GI/ - General Chief Complaint: Possible Kidney Stone Stated Complaint: ABDOMINAL PAIN Time Seen by Provider: 10/20/19 04:13 Primary Care Provider: NIKI SY MD [ACTIVE STAFF] - Follow up as needed (call today to arrange appointment) DEVI TELLO NP [NURSE PRACTITIONER] - Follow up as needed Mode of Arrival: Ambulatory Information source: Patient Notes: This 39 year old female patient presents to the ED today with complaints of abdo adalid pain that began about x1 month ago. Patient states that she has been making multiple visits to the urgent care for her symptoms since onset. Patient came to the ED yesterday, but left without being seen and went to urgent care. Patient states that a staff member at urgent care called her around 1999 yesterday stating that she had bilateral kidney stones after viewing an abdominal x-ray and that her WBC was elevated. Patient notes that she has received a total of x3 courses of antibiotics (Amoxicillin) for her symptoms from the urgent care that provided no relief. Patient states that her PCP is at the OR, but she can't be seen until 11/20/2019, so she came back to the ED for further evaluation. Patient reports nausea, diarrhea, and weakness. TRAVEL OUTSIDE OF THE [place] IN LAST 30 DAYS: No - Related Data Allergies/Adverse Reactions: No Known Allergies Allergy (Verified 07/14/19 08:19) Past Medical History - General Information source: Patient, [facility] Records - Social History Smoking Status: Current Every Day Smoker Cigarette use (# per day): Yes Chew tobacco use (# tins/day): No Smoking Education Provided: No Frequency of alcohol use: Rare Drug Abuse: None Family History: Reviewed & Not Pertinent, Arthritis, CVA, Hyperlipidemia Patient has suicidal ideation: No Patient has homicidal ideation: No Endocrine Medical History: Reports: Hx Diabetes Mellitus Type 2 - Gestational Musculoskeletal Medical History: Reports Hx Arthritis, Reports Hx Musculoskeletal Deformity, Reports Hx Musculoskeletal Trauma - hip pelvic femur coccyx fracture Psychiatric Medical History: Reports: Hx Anxiety, Hx Bipolar Disorder, Hx Depression Traumatic Medical History: Reports: Hx Fractures - hip pelvic femur coccyx Past Surgical History: Reports: Hx Section, Hx Tubal Ligation - Immunizations Immunizations up to date: Yes Hx Diphtheria, Pertussis, Tetanus Vaccination: Yes Review of Systems - Review of Systems Constitutional: See HPI, Weakness EENT: No symptoms reported Cardiovascular: No symptoms reported Respiratory: No symptoms reported Gastrointestinal: See HPI, Abdominal pain, Diarrhea, Nausea Genitourinary: No symptoms reported Female Genitourinary: No symptoms reported Musculoskeletal: No symptoms reported Skin: No symptoms reported Hematologic/Lymphatic: No symptoms reported Neurological/Psychological: No symptoms reported -: Yes All other systems reviewed and negative Physical Exam - Vital signs Vitals: Temp Pulse Resp BP Pulse Ox 98.6 F 110 H 20 134/86 H 97 10/19/19 22:44 10/19/19 22:44 10/19/19 22:44 10/19/19 22:44 10/19/19 22:44 - General General appearance: Alert - HEENT Head: Normocephalic, Atraumatic Eyes: Normal Pupils: PERRL - Respiratory Respiratory status: No respiratory distress Chest status: Nontender Breath sounds: Normal Chest palpation: Normal - Cardiovascular Rhythm: Regular Heart sounds: Normal auscultation Murmur: No - Abdominal Inspection: Normal Distension: No distension Bowel sounds: Normal Tenderness: Nontender - Abdomen soft Organomegaly: No organomegaly - Back Back: Normal, Nontender - Extremities General upper extremity: Normal inspection General lower extremity: Normal inspection - Neurological Neuro grossly intact: Yes - Psychological Associated symptoms: Normal affect, Normal mood - Skin Skin Temperature: Warm Skin Moisture: Dry Skin Color: Normal Course - Re-evaluation Re-evalutation: 10/20/19 04:50 Results of ED MSE discussed with patient. All questions were answered prior to discharge. Emergency signs and symptoms, reasons to return to the emergency department discussed with patient. - Vital Signs Vital signs: Temp Pulse Resp BP Pulse Ox 98.4 F 105 H 20 142/96 H 100 10/20/19 01:53 10/20/19 01:53 10/20/19 01:53 10/20/19 01:53 10/20/19 01:53 - Laboratory Laboratory results interpreted by me: 10/20/19 00:05 Urine Glucose (UA) 50 H Urine Ketones TRACE H Urine Urobilinogen 2.0 H Ur Leukocyte Esterase SMALL H Discharge - Discharge Clinical Impression: Abdominal pain Qualifiers: Abdominal location: unspecified location Qualified Code(s): R10.9 - Unspecified abdominal pain Condition: Good Disposition: HOME, SELF-CARE Instructions: Abdominal Pain ([facility]) Additional Instructions: Return to the Emergency Department without delay if any worse. HOME CARE INSTRUCTIONS & INFORMATION: Thank you for choosing us for your medical needs. We hope you're satisfied with the care you received. After you leave, you must properly care for your problem and, at the same time, observe its progress. Any condition can change. Some illnesses can change rapidly over hours or days. If your condition worsens, return to the Emergency Department or see your physician promptly. ABOUT YOUR X-RAYS AND EKG'S: If you had an EKG or X-rays taken, they have been read by the Emergency Physician. The X-rays and EKG's will also be read by a Radiologist or Clinical Therapist within 24 hours. If discrepancies are noted, you will be notified by telephone. Please be certain the ED has a correct telephone number & address where you can be reached. Also, realize that some fractures or abnormalities do not show up on initial X-rays. If your symptoms continue, see your physician. ABOUT YOUR LABORATORY TEST: If you had laboratory tests, the results have been reviewed by the Emergency Physician. Some test results (for example cultures) may not be available for several days. You will be contacted if any test result shows you need additional treatment. Please be certain the ED has a correct telephone number and address where you can be reached. ABOUT YOUR MEDICATIONS: You will receive instructions on how to take your medicine on the prescription label you receive. Additional information may be provided by the Pharmacy. If you have questions afterwards, call the ED for clarification or further instructions. Some prescribed medications may cause drowsiness. Do not perform tasks such as driving a car or operating machinery without consulting your Pharmacist. If you feel you need a refill of pain medication, your condition will need re-evaluation. Please do not call for a refill of any medication. ABOUT YOUR SIGNATURE: Signature of this document acknowledges to followin. Understanding that you received emergency treatment and that you may be released before al medical problems are known or treated. Please be certain the ED has a correct phone number & address where you can be reached. 2. Acknowledgement that you will arrange for follow-up care as recommended. 3. Authorization for the Emergency Physician to provide information to your follow-up Physician in order to maximize your care. AT ANY TIME, IF YOUR SYMPTOMS CHANGE SIGNIFICANTLY OR WORSEN OR YOU DEVELOP NEW SYMPTOMS, RETURN TO THE EMERGENCY DEPARTMENT IMMEDIATELY FOR RE-EVALUATION. OUR GOAL IS TO PROVIDE EXCELLENT MEDICAL CARE! WE HOPE THAT WE HAVE MET YOUR EXPECTATIONS DURING YOUR EMERGENCY DEPARTMENT VISIT AND THAT YOU FEEL YOU HAVE RECEIVED EXCELLENT CARE! Forms: Return to Work Referrals: DEVI TELLO NP [NURSE PRACTITIONER] - Follow up as needed NIKI SY MD [ACTIVE STAFF] - Follow up as needed (call today to arrange appointment) I personally performed the services described in the documentation, reviewed and edited the documentation which was dictated to the scribe in my presence, and it accurately records my words and actions.
== END 2019-10-20 05:29 | disposition home or self-care (01) ==
LOC: ER 22:07
DX: R10.9 Unspecified abdominal pain (principal); R11.0 Nausea; R19.7 Diarrhea, unspecified; R53.1 Weakness; F17.210 Nicotine dependence, cigarettes, uncomplicated
CPT/HCPCS: 74176; 81001; 81025; 99284

== ENCOUNTER → 2019-10-19 | Outpatient (CLI) | payer MEDICAID ==
--- NOTE | 2019-10-19 12:12 | RADIOLOGY REPORT (SQ) ---
EXAM DESCRIPTION: KUB COMPLETED DATE/TIME: 10/19/2019 12:02 pm REASON FOR STUDY: LUQ ABDOMINAL PAIN R10.12 LEFT UPPER QUADRANT PAIN COMPARISON: None. NUMBER OF VIEWS: One view. TECHNIQUE: Supine radiographic image of the abdomen acquired. LIMITATIONS: None. FINDINGS: BOWEL GAS PATTERN: Normal bowel gas pattern. No dilated loops. CALCIFICATIONS: Possible tiny calculi in the lower pole of the right kidney and upper pole of the lef t kidney. SOFT TISSUES: No gross mass or suggestion of organomegaly. HARDWARE: None in the abdomen. BONES: No acute fracture. No worrisome bone lesions. OTHER: No other significant finding. IMPRESSION: POSSIBLE TINY RENAL CALCULI. NO RADIOGRAPHIC EVIDENCE FOR ACUTE ABDOMINAL DISEASE. TECHNICAL DOCUMENTATION: JOB ID: [id number] 2010 [employer]- All Rights Reserved Reading location - IP/workstation name: [email or web address]
[2019-10-19 12:45] LABS: ABSOLUTE BASOPHILS # (AUTO) 0.1 10^3/uL (0.0-0.2); ABSOLUTE EOSINOPHILS # (AUTO) 0.3 10^3/uL (0.0-0.6); ABSOLUTE LYMPHOCYTES (AUTO) 4.8 10^3/uL (0.5-4.7); ABSOLUTE MONOCYTES (AUTO) 0.7 10^3/uL (0.1-1.4); BASOPHILS % (AUTO) 0.6 % (0-2); EOSINOPHILS % (AUTO) 1.5 % (0-6); HEMATOCRIT 38.3 % (36.0-47.0); HEMOGLOBIN 12.3 g/dL (12.0-15.5); LYMPHOCYTES % (AUTO) 28.2 % (13-45); MEAN CORPUSCULAR HGB CONC 32.2 g/dL (32.0-36.0); MEAN CORPUSCULAR VOLUME 72 fl (80-97); MONOCYTES % (AUTO) 4.1 % (3-13); PLATELET COUNT 320 10^3/uL (150-450); RED BLOOD COUNT 5.35 10^6/uL (3.72-5.28); RED CELL DISTRIBUTION WIDTH 17.8 % (11.5-14.0); SEGMENTED NEUTROPHILS % (AUTO) 65.6 % (42-78); TOTAL CELLS COUNTED % (AUTO) 100 %; WHITE BLOOD COUNT 16.8 10^3/uL (4.0-10.5)
[2019-10-19 13:09] LABS: ALBUMIN 4.1 g/dL (3.5-5.0); ALKALINE PHOSPHATASE 97 U/L (38-126); ANION GAP 11 (5-19); ASPARTATE AMINO TRANSFERASE 42 U/L (14-36); BILIRUBIN,TOTAL 0.4 mg/dL (0.2-1.3); BLOOD UREA NITROGEN 10 mg/dL (7-20); CALCIUM 9.7 mg/dL (8.4-10.2); CARBON DIOXIDE 22 mmol/L (22-30); CHLORIDE 106 mmol/L (98-107); GLUCOSE 90 mg/dL (75-110); POTASSIUM 4.5 mmol/L (3.6-5.0); TOTAL PROTEIN 7.3 g/dL (6.3-8.2)
== END ==
LOC: OD 11:46
PROVIDERS: ATTEND Nurse Practitioner Acute Care
DX: R10.12 Left upper quadrant pain (principal)
CPT/HCPCS: 36415; 74018; 80053; 83690; 85025

== ENCOUNTER 2019-10-28 15:23 | Emergency (ER) | payer MEDICAID ==
[2019-10-28 15:44] VITALS: BP 126/88
--- NOTE | 2019-10-28 16:14 | ER Document Report ---
ED Medical Screen (RME) - General Chief Complaint: Abdominal Pain Stated Complaint: LOWER BACK PAIN/ABDOMINAL PAIN Time Seen by Provider: 10/28/19 16:03 Primary Care Provider: RYAN HAILE [Primary Care Provider] - Follow up as needed Mode of Arrival: Ambulatory Information source: Patient Notes: Otherwise healthy 39-year-old female presenting to the emergency department chief complaint of 2-month history of low abdominal pain and cramping. Patient reports she was told by her primary care provider that she has bilateral kidney stones, diverticulosis and a fatty liver. Patient is very concerned, she states the pain is getting worse. She reports associated nausea, vomiting, diarrhea. Denies any fevers. Exam: Patient alert, oriented, no acute distress noted. Abdomen soft, mildly tender. I have greeted and performed a rapid initial assessment of this patient. A comprehensive ED assessment and evaluation of the patient, analysis of test results and completion of the medical decision making process will be conducted by additional ED providers. I have specifically instructed the patient or family members with the patient to immediately return to any nursing staff should anything change in the patient's condition or with their chief complaint. TRAVEL OUTSIDE OF THE [place] IN LAST 30 DAYS: No - Related Data Allergies/Adverse Reactions: No Known Allergies Allergy (Verified 10/28/19 15:58) Past Medical History - Social History Chew tobacco use (# tins/day): No Frequency of alcohol use: None Drug Abuse: None Endocrine Medical History: Reports: Hx Diabetes Mellitus Type 2 - Gestational Renal/ Medical History: Denies: Hx Peritoneal Dialysis Musculoskeltal Medical History: Reports Hx Arthritis, Reports Hx Musculoskeletal Deformity, Reports Hx Musculoskeletal Trauma - hip pelvic femur coccyx fracture Psychiatric Medical History: Reports: Hx Anxiety, Hx Bipolar Disorder, Hx Depression Traumatic Medical History: Reports: Hx Fractures - hip pelvic femur coccyx Past Surgical History: Reports: Hx Section, Hx Tubal Ligation - Immunizations Immunizations up to date: Yes Hx Diphtheria, Pertussis, Tetanus Vaccination: Yes Physical Exam - Vital signs Vitals: Temp Pulse Resp BP Pulse Ox 98.2 F 102 H 16 126/88 H 100 10/28/19 15:43 10/28/19 15:43 10/28/19 15:43 10/28/19 15:43 10/28/19 15:43 Course - Vital Signs Vital signs: Temp Pulse Resp BP Pulse Ox 98.2 F 102 H 16 126/88 H 100 10/28/19 15:43 10/28/19 15:43 10/28/19 15:43 10/28/19 15:43 10/28/19 15:43 Doctor's Discharge - Discharge [facility]errals[facility] [[facility]] - Follow up as needed
[2019-10-28 16:51] LABS: ABSOLUTE BASOPHILS # (AUTO) 0.1 10^3/uL (0.0-0.2); ABSOLUTE EOSINOPHILS # (AUTO) 0.2 10^3/uL (0.0-0.6); ABSOLUTE LYMPHOCYTES (AUTO) 5.3 10^3/uL (0.5-4.7); ABSOLUTE MONOCYTES (AUTO) 0.7 10^3/uL (0.1-1.4); ABSOLUTE NEUT (AUTO) 11.6 10^3/uL (1.7-8.2); BASOPHILS % (AUTO) 0.5 % (0-2); EOSINOPHILS % (AUTO) 1.4 % (0-6); HEMATOCRIT 39.5 % (36.0-47.0); HEMOGLOBIN 12.6 g/dL (12.0-15.5); LYMPHOCYTES % (AUTO) 29.4 % (13-45); MEAN CORPUSCULAR HEMOGLOBIN 23.2 pg (27.0-33.4); MEAN CORPUSCULAR HGB CONC 31.8 g/dL (32.0-36.0); MEAN CORPUSCULAR VOLUME 73 fl (80-97); PLATELET COUNT 303 10^3/uL (150-450); RED BLOOD COUNT 5.42 10^6/uL (3.72-5.28); RED CELL DISTRIBUTION WIDTH 18.1 % (11.5-14.0); SEGMENTED NEUTROPHILS % (AUTO) 64.7 % (42-78); TOTAL CELLS COUNTED % (AUTO) 100 %; WHITE BLOOD COUNT 17.9 10^3/uL (4.0-10.5)
--- NOTE | 2019-10-28 16:59 | RADIOLOGY REPORT (SQ) ---
EXAM DESCRIPTION: KUB/ABDOMEN (SINGLE VIEW) COMPLETED DATE/TIME: 10/28/2019 4:48 pm REASON FOR STUDY: abd pain COMPARISON: KUB 10/19/2019. CT abdomen pelvis without contrast 10/20/2019 NUMBER OF VIEWS: One view. TECHNIQUE: Supine radiographic image of the abdomen acquired. LIMITATIONS: None. FINDINGS: BOWEL GAS PATTERN: Normal bowel gas pattern. No dilated loops. CALCIFICATIONS: Small calcific densities project over the bilateral renal shadows. SOFT TISSUES: No gross mass or suggestion of organomegaly. HARDWARE: None in the abdomen. BONES: No acute fracture. No worrisome bone lesions. OTHER: No other significant finding. IMPRESSION: Bilateral nephrolithiasis. Nonobstructive bowel gas pattern. TECHNICAL DOCUMENTATION: JOB ID: [id number] 2011 [employer]- All Rights Reserved Reading location - IP/workstation name: [email or web address]
[2019-10-28 17:06] LABS: ALBUMIN 4.2 g/dL (3.5-5.0); ALKALINE PHOSPHATASE 103 U/L (38-126); ANION GAP 8 (5-19); APPEARANCE,URINE CLOUDY; ASPARTATE AMINO TRANSFERASE 51 U/L (14-36); BILIRUBIN,TOTAL 0.3 mg/dL (0.2-1.3); BILIRUBIN,URINE NEGATIVE (NEGATIVE); BLOOD UREA NITROGEN 10 mg/dL (7-20); CALCIUM 9.3 mg/dL (8.4-10.2); CARBON DIOXIDE 26 mmol/L (22-30); CHLORIDE 105 mmol/L (98-107); COLOR,URINE RED; GLUCOSE 91 mg/dL (75-110); GLUCOSE, URINE NEGATIVE (NEGATIVE); KETONES,URINE NEGATIVE (NEGATIVE); LEUKOCYTE ESTERASE,URINE NEGATIVE (NEGATIVE); NITRITE,URINE NEGATIVE (NEGATIVE); POTASSIUM 3.9 mmol/L (3.6-5.0); PROTEIN,URINE 100 mg/dL (NEGATIVE); TOTAL PROTEIN 7.5 g/dL (6.3-8.2); URINE SPECIFIC GRAVITY 1.019; UROBILINOGEN,URINE NEGATIVE mg/dL (<2.0)
--- NOTE | 2019-10-28 18:00 | ER Document Report ---
ED GI/ - General Chief Complaint: Abdominal Pain Stated Complaint: LOWER BACK PAIN/ABDOMINAL PAIN Time Seen by Provider: 10/28/19 16:03 Primary Care Provider: RYAN HAILE [NO LOCAL MD] - Follow up as needed Mode of Arrival: Ambulatory Notes: 39-year-old woman presents to the emergency department with a complaint of abdominal pain for the past month. She is been seen in the emergency department had CAT scan performed recently which revealed fatty liver, kidney stone, and diverticulosis. Patient states that she was told if her pain had not improved and she should return to the emergency department for further evaluation and treatment. She he is scheduled to see the trade mark examiner on November 06. She denies fever, nausea vomiting, or diarrhea. TRAVEL OUTSIDE OF THE [place] IN LAST 30 DAYS: No - Related Data Allergies/Adverse Reactions: No Known Allergies Allergy (Verified 10/28/19 15:58) Past Medical History - General Information source: Patient - Social History Smoking Status: Current Every Day Smoker Chew tobacco use (# tins/day): No Frequency of alcohol use: None Drug Abuse: None Family History: Reviewed & Not Pertinent, Arthritis, CVA, Hyperlipidemia Patient has suicidal ideation: No Patient has homicidal ideation: No Endocrine Medical History: Reports: Hx Diabetes Mellitus Type 2 - Gestational Renal/ Medical History: Denies: Hx Peritoneal Dialysis Musculoskeletal Medical History: Reports Hx Arthritis, Reports Hx Musculoskeletal Deformity, Reports Hx Musculoskeletal Trauma - hip pelvic femur coccyx fracture Psychiatric Medical History: Reports: Hx Anxiety, Hx Bipolar Disorder, Hx Depression Traumatic Medical History: Reports: Hx Fractures - hip pelvic femur coccyx Past Surgical History: Reports: Hx Section, Hx Tubal Ligation - Immunizations Immunizations up to date: Yes Hx Diphtheria, Pertussis, Tetanus Vaccination: Yes Review of Systems - Review of Systems Notes: Constitutional: Negative for fever. HENT: Negative for sore throat. Eyes: Negative for visual changes. Cardiovascular: Negative for chest pain. Respiratory: Negative for shortness of breath. Gastrointestinal: + Bilateral side abdominal pain, + burping Genitourinary: Negative for dysuria. Musculoskeletal: + Back pain. Skin: Negative for rash. Neurological: Negative for headaches, weakness or numbness. 10 point ROS negative except as marked above and in HPI. Physical Exam - Vital signs Vitals: Temp Pulse Resp BP Pulse Ox 98.2 F 102 H 16 126/88 H 100 10/28/19 15:43 10/28/19 15:43 10/28/19 15:43 10/28/19 15:43 10/28/19 15:43 - Notes Notes: PHYSICAL EXAMINATION: Physical Exam: General: Well-nourished well-developed 39-year-old woman in no acute distress HEENT: NC/AT, pupils equal round and reactive to light, MM moist,nares clear, oropharynx clear, airway patent Neck: supple, no adenopathy, no masses. Good range of motion Lungs: clear, no wheezing, no rales no rhonchi CVS: Regular rate and rhythm no murmur gallop or rub Abdomen: Soft, active, nontender, no masses, no hepatosplenomegaly, tenderness in the flank and back bilaterally Ext: No edema, clubbing or cyanosis. Neuro: Alert and responsive, moving all 4 extremities on command, cranial nerves intact, no focal findings Skin: Intact no open lesions, no rash PSYCH: Normal mood, normal affect. Course - Re-evaluation Re-evalutation: 10/28/19 18:12 Discussed the findings of the labs and x-ray with the patient, also reviewed the CT scan which was done recently here in the emergency department. Etiology of her pain remains unclear. I doubt that is related to the nonobstructing kidney stones or gallbladder. Patient describes increase gas in her GI tract with belching. But pain which crescendos an 8/10 at times. She feels that the pain has worsened over the month duration. She has a GI consult scheduled for November 06. I explained that we will use an antispasmodic and a medication to decrease the gas in her GI tract to see if it helps her symptoms. And an acid medication is also being ordered. I have asked her to try these medicines in combination and to follow-up with the GI doctor. She is in agreement with the plan. - Vital Signs Vital signs: Temp Pulse Resp BP Pulse Ox 98.2 F 102 H 16 126/88 H 100 10/28/19 15:43 10/28/19 15:43 10/28/19 15:43 10/28/19 15:43 10/28/19 15:43 - Laboratory Result Diagrams: 10/28/19 16:30 10/28/19 16:30 Laboratory results interpreted by me: 10/28/19 10/28/1920 16:30 16:30 16:30 WBC 17.9 H RBC 5.42 H MCV 73 L MCH 23.2 L MCHC 31.8 L RDW 18.1 H Absolute Neuts (auto) 11.6 H Absolute Lymphs (auto) 5.3 H Creatinine 0.47 L AST 51 H ALT 56 H Urine Protein 100 H Urine Blood LARGE H Discharge - Discharge Clinical Impression: Bilateral flank pain, Abdominal distension, gaseous Back pain Qualifiers: Back pain location: low back pain Chronicity: unspecified Back pain laterality: unspecified Sciatica presence: without sciatica Qualified Code(s): M54.5 - Low back pain Condition: Good Disposition: HOME, SELF-CARE Instructions: Antispasmodics ([facility]) Additional Instructions: Please use the medications as prescribed Bentyl, omeprazole, Mylicon. She is to push fluids and use Naprosyn and follow-up with GI on November 06. Prescriptions: Dicyclomine HCl [Bentyl 20 mg Tablet] 20 mg PO QID #10 tablet Simethicone [Mylicon 80 mg Chewable Tablet] 80 mg PO QIDP PRN #10 tab.chew PRN Reason: Omeprazole 40 mg PO DAILY #20 capsule.dr Referrals: [facility] [NO LOCAL MD] - Follow up as needed
[2019-10-28] MEDS ORDERED: OXYCODONE-ACETAMINOPHEN 5-325 MG TABLET PO ONE (18:07)
== END 2019-10-28 18:50 | disposition home or self-care (01) ==
LOC: ER 15:23
DX: N20.0 Calculus of kidney (principal); R10.9 Unspecified abdominal pain; M54.5 Low back pain; R14.2 Eructation; R14.0 Abdominal distension (gaseous); F17.200 Nicotine dependence, unspecified, uncomplicated
CPT/HCPCS: 36415; 74018; 80053; 81001; 83690; 84703; 85025; 99284

== ENCOUNTER 2019-11-02 10:02 | Day surgery (SDC) | payer MEDICAID ==
[2019-11-02] MEDS ORDERED: PROPOFOL INJ 200 MG/20 ML VIAL IV ONE (10:35)
--- NOTE | 2019-11-02 12:16 | Operative Report ---
Operative Report DATE OF SURGERY: 11/02/19 Operative Report: The risk, benefits and alternatives of the procedure including the risk of bleeding, perforation requiring surgery have been explained to the patient in detail and informed consent has been obtained. Patient is placed in a left, lateral decubital position. Timeout was called. Propofol medication is administered. Rectal examination is done which did not reveal any masses, tears or fissures. An Olympus videoscope was introduced into the patient's rectum. Scope was then carefully advanced all the way to the cecum. Cecum was identified by the usual anatomical landmarks of the ileocecal valve as well as the appendiceal office. Photodocumentation was obtained. Scope was then sequentially pulled back via the various segments of the colon including the ascending colon, backslash, transverse colon, splenic flexure, descending colon finding to the rectosigmoid portions of the colon. Retroflexion maneuvers performed. The risks benefits and alternatives of the procedure explained to the patient in detail and informed consent is obtained.A GIF Olympus video scope was inserted into the patient's mouth and hypopharynx ,the esophagus is identified intubated and insufflated, the scope was then advanced through the esophagus stomach and duodenum, retroflexion maneuver is done the esophagus stomach and first and second portions of the duodenum examined PREOPERATIVE DIAGNOSIS: Nausea vomiting. Change in bowel habits POSTOPERATIVE DIAGNOSIS: Right colon inflammation status post biopsy. Diverticulosis. Internal hemorrhoids. Gastritis status post biopsy rule out Helicobacter pylori OPERATION: Colonoscopy with biopsy. EGD with biopsy SURGEON: NIKI SY ANESTHESIA: LMAC TISSUE REMOVED OR ALTERED: As noted above. COMPLICATIONS: None. ESTIMATED BLOOD LOSS: None. INTRAOPERATIVE FINDINGS: As noted above. PROCEDURE: Patient tolerated the procedure well. No immediate postprocedure complications are noted. Patient is discharged in good condition. Discharge date 11/02/2019. Discharge diet: Regular. Discharge activity: Regular. 2 to 3-week follow-up to discuss findings. Patient is instructed to call the office or proceed to the emergency room should there be any further problems or questions. Wait on the pathology.
[2019-11-02 13:20] VITALS: BP 137/92
== END 2019-11-02 12:55 | disposition home or self-care (01) ==
LOC: OROUT 10:02
PROVIDERS: ATTEND Internal Medicine Gastroenterology
DX: K52.9 Noninfective gastroenteritis and colitis, unspecified (principal); K57.30 Diverticulosis of large intestine without perforation or abscess without bleeding; K64.8 Other hemorrhoids; K29.50 Unspecified chronic gastritis without bleeding; K76.0 Fatty (change of) liver, not elsewhere classified
CPT/HCPCS: 43239; 45380; 81025; 88342 ×2; 88305 ×2; 00813; J2704; 813

== ENCOUNTER 2019-11-09 20:41 | Emergency (ER) | payer OTHER, MEDICAID ==
--- NOTE | 2019-11-09 21:26 | ER Document Report ---
ED Medical Screen (RME) - General Chief Complaint: Abdominal Pain Stated Complaint: ABDOMINAL PAIN Time Seen by Provider: 11/09/19 21:17 Primary Care Provider: ALAINA FREGOSO FNP-C [Primary Care Provider] - Follow up as needed TRAVEL OUTSIDE OF THE [place] IN LAST 30 DAYS: No - HPI Notes: 11/09/19 21:23 Pt is a 39yo female w. h/o recent endoscopy/colonoscopy 2 days ago and abd pain x1mo with several visits to the ED presents c/o continued pain. She was dx'd with gastritis and "forming ulcer." She is currently on bentyl, cipro, and flagyl. Pain is primarily left abd and lower mid abd. No fever, CP, SOB, dysuria, melena, or hematochezia. I have treated and performed a rapid initial assessment of this patient. A comprehensive ED assessment and evaluation of the patient, analysis of test results and completion of medical decision making process will be conducted by additional ED providers. PHYSICAL EXAMINATION: GENERAL: Well-appearing, well-nourished and in no acute distress. A&Ox4. Answers questions appropriately. - Related Data Allergies/Adverse Reactions: No Known Allergies Allergy (Verified 11/09/19 21:13) Home Medications: CIPRO. FLAGYL. BENTAL Past Medical History - Past Medical History Cardiac Medical History: Denies: Hx Coronary Artery Disease, Hx Heart Attack, Hx Hypertension Pulmonary Medical History: Denies: Hx Asthma, Hx Bronchitis, Hx COPD, Hx Pneumonia Neurological Medical History: Denies: Hx Cerebrovascular Accident, Hx Seizures Endocrine Medical History: Reports: Hx Diabetes Mellitus Type 2 - Gestational Renal/ Medical History: Denies: Hx Peritoneal Dialysis Musculoskeltal Medical History: Reports Hx Arthritis, Reports Hx Musculoskeletal Deformity, Reports Hx Musculoskeletal Trauma - hip pelvic femur coccyx fracture Psychiatric Medical History: Reports: Hx Anxiety, Hx Bipolar Disorder, Hx Depression Traumatic Medical History: Reports: Hx Fractures - hip pelvic femur coccyx Past Surgical History: Reports: Hx Section, Hx Tubal Ligation - Immunizations Immunizations up to date: Yes Hx Diphtheria, Pertussis, Tetanus Vaccination: Yes Physical Exam - Vital signs Vitals: Temp Pulse Resp BP Pulse Ox 98.4 F 80 20 130/76 H 97 11/09/19 20:58 11/09/19 20:58 11/09/19 20:58 11/09/19 20:58 11/09/19 20:58 Course - Vital Signs Vital signs: Temp Pulse Resp BP Pulse Ox 98.4 F 80 20 130/76 H 97 11/09/19 20:58 11/09/19 20:58 11/09/19 20:58 11/09/19 20:58 11/09/19 20:58 Doctor's Discharge - Discharge Referrals: ALAINA FREGOSO FNP-C [Primary Care Provider] - Follow up as needed
[2019-11-09 21:56] LABS: ABSOLUTE BASOPHILS # (AUTO) 0.1 10^3/uL (0.0-0.2); ABSOLUTE EOSINOPHILS # (AUTO) 0.3 10^3/uL (0.0-0.6); BASOPHILS % (AUTO) 0.6 % (0-2); TOTAL CELLS COUNTED % (AUTO) 100 %
[2019-11-09 22:00] LABS: ABSOLUTE LYMPHOCYTES (AUTO) 4.6 10^3/uL (0.5-4.7); ABSOLUTE MONOCYTES (AUTO) 0.7 10^3/uL (0.1-1.4); ABSOLUTE NEUT (AUTO) 12.8 10^3/uL (1.7-8.2); APPEARANCE,URINE CLEAR; BILIRUBIN,URINE NEGATIVE (NEGATIVE); COLOR,URINE YELLOW; EOSINOPHILS % (AUTO) 1.5 % (0-6); GLUCOSE, URINE >=500 mg/dL (NEGATIVE); HEMATOCRIT 37.2 % (36.0-47.0); HEMOGLOBIN 11.8 g/dL (12.0-15.5); KETONES,URINE TRACE mg/dL (NEGATIVE); MEAN CORPUSCULAR HEMOGLOBIN 22.9 pg (27.0-33.4); MEAN CORPUSCULAR HGB CONC 31.8 g/dL (32.0-36.0); MEAN CORPUSCULAR VOLUME 72 fl (80-97); MONOCYTES % (AUTO) 3.9 % (3-13); PLATELET COUNT 281 10^3/uL (150-450); PROTEIN,URINE NEGATIVE (NEGATIVE); RED BLOOD COUNT 5.16 10^6/uL (3.72-5.28); URINE SPECIFIC GRAVITY 1.024; UROBILINOGEN,URINE NEGATIVE mg/dL (<2.0); WHITE BLOOD COUNT 18.6 10^3/uL (4.0-10.5)
[2019-11-09 22:13] LABS: ALBUMIN 3.8 g/dL (3.5-5.0); ALKALINE PHOSPHATASE 118 U/L (38-126); ANION GAP 15 (5-19); ASPARTATE AMINO TRANSFERASE 41 U/L (14-36); BILIRUBIN,DIRECT 0.3 mg/dL (0.0-0.4); BILIRUBIN,TOTAL 0.3 mg/dL (0.2-1.3); BLOOD UREA NITROGEN 10 mg/dL (7-20); CALCIUM 9.2 mg/dL (8.4-10.2); CARBON DIOXIDE 20 mmol/L (22-30); CHLORIDE 103 mmol/L (98-107); GLUCOSE 275 mg/dL (75-110); POTASSIUM 4.2 mmol/L (3.6-5.0); TOTAL PROTEIN 7.1 g/dL (6.3-8.2)
--- NOTE | 2019-11-09 22:26 | RADIOLOGY REPORT (SQ) ---
EXAM DESCRIPTION: Single view of the abdomen CLINICAL HISTORY: 39 years Female, abd pain, recent endo/colonoscopy COMPARISON: Radiograph of the abdomen 10/28/2019 FINDINGS: Moderate stool is noted throughout the colon. There is an overall paucity of bowel gas. This is nonspecific. Both kidney outlines are ribs cured by stool in the colon. The lung bases are not imaged. One compared the previous exam the volume of stool has increased. IMPRESSION: Moderate stool throughout the colon. Nonspecific bowel gas pattern.
[2019-11-10 01:00] VITALS: BP 115/78
--- NOTE | 2019-11-10 02:15 | ER Document Report ---
Entered by QI STRAUSS SCRIBE 11/10/19 0011 Acting as scribe for:KERRI TRISTAN MD ED GI/ - General Chief Complaint: Abdominal Pain Stated Complaint: ABDOMINAL PAIN Time Seen by Provider: 11/09/19 21:17 Primary Care Provider: ALAINA FREGOSO FNP-C [NURSE PRACTITIONER] - Follow up as needed Mode of Arrival: Ambulatory Information source: Patient Notes: This 39 year old female patient presents to the ED today with complaints of gen eralized abdominal pain that has been ongoing for the past x1-2 months. Patient reports that she doesn't have any trouble with bowel movements, stating that "every time I eat, I'm going to the bathroom." Patient states that she stopped taking Miralax after her endoscopy and colonoscopy on 11/02/19. Patient's colonoscopy report showed no active colitis and the endoscopy report showed mild chronic inactive gastritis. Dr. Mei started the patient on Cipro and Flagyl on 11/07/19. Patient denies fever, chest pain, shortness of breath, dysuria, melena, or hematochezia. TRAVEL OUTSIDE OF THE [place] IN LAST 30 DAYS: No - Related Data Allergies/Adverse Reactions: No Known Allergies Allergy (Verified 11/09/19 21:13) Home Medications: CIPRO. FLAGYL. BENTAL Past Medical History - General Information source: Patient - Social History Smoking Status: Current Every Day Smoker Cigarette use (# per day): Yes Chew tobacco use (# tins/day): No Smoking Education Provided: No Frequency of alcohol use: None Drug Abuse: None Family History: Reviewed & Not Pertinent, Arthritis, CVA, Hyperlipidemia Patient has suicidal ideation: No Patient has homicidal ideation: No Endocrine Medical History: Reports: Hx Diabetes Mellitus Type 2 - Gestational Musculoskeletal Medical History: Reports Hx Arthritis, Reports Hx Musculoskeletal Deformity, Reports Hx Musculoskeletal Trauma - hip pelvic femur coccyx fracture Psychiatric Medical History: Reports: Hx Anxiety, Hx Bipolar Disorder, Hx Depression Traumatic Medical History: Reports: Hx Fractures - hip pelvic femur coccyx Past Surgical History: Reports: Hx Section, Hx Tubal Ligation - Immunizations Immunizations up to date: Yes Hx Diphtheria, Pertussis, Tetanus Vaccination: Yes Review of Systems - Review of Systems Constitutional: See HPI. denies: Fever EENT: No symptoms reported Cardiovascular: See HPI. denies: Chest pain Respiratory: See HPI. denies: Short of breath Gastrointestinal: See HPI, Abdominal pain, Other - No hematochezia or melena. Genitourinary: See HPI. denies: Dysuria Female Genitourinary: No symptoms reported Musculoskeletal: No symptoms reported Skin: No symptoms reported Hematologic/Lymphatic: No symptoms reported Neurological/Psychological: No symptoms reported -: Yes All other systems reviewed and negative Physical Exam - Vital signs Vitals: Temp Pulse Resp BP Pulse Ox 98.4 F 80 20 130/76 H 97 11/09/19 20:58 11/09/19 20:58 11/09/19 20:58 11/09/19 20:58 11/09/19 20:58 - General General appearance: Appears well, Alert - HEENT Head: Normocephalic, Atraumatic Eyes: Normal Pupils: PERRL - Respiratory Respiratory status: No respiratory distress Chest status: Nontender Breath sounds: Normal Chest palpation: Normal - Cardiovascular Rhythm: Regular Heart sounds: Normal auscultation Murmur: No - Abdominal Inspection: Obese Distension: No distension Bowel sounds: Normal Tenderness: Tender - Diffusely mildly tender with palpation. Percussion is dull throughout. Organomegaly: No organomegaly - Back Back: Normal, Nontender - Extremities General upper extremity: Normal inspection General lower extremity: Normal inspection - Neurological Neuro grossly intact: Yes - Psychological Associated symptoms: Normal affect, Normal mood - Skin Skin Temperature: Warm Skin Moisture: Dry Skin Color: Normal Course - Vital Signs Vital signs: Temp Pulse Resp BP Pulse Ox 98.4 F 78 18 115/78 97 11/10/19 00:59 11/10/19 00:59 11/10/19 00:59 11/10/19 00:59 11/10/19 00:59 - Laboratory Result Diagrams: 11/09/19 21:40 11/09/19 21:40 Laboratory results interpreted by me: 11/09/19 11/09/19 11/09/19 21:40 21:40 21:40 WBC 18.6 H Hgb 11.8 L MCV 72 L MCH 22.9 L MCHC 31.8 L RDW 18.0 H Absolute Neuts (auto) 12.8 H Carbon Dioxide 20 L Glucose 275 H AST 41 H ALT 39 H Urine Glucose (UA) >=500 H Urine Ketones TRACE H - Diagnostic Test Radiology reviewed: Image reviewed, Reports reviewed - KUB shows constipation. Discharge - Discharge Clinical Impression: Irritable bowel syndrome (IBS) Qualifiers: Irritable bowel syndrome type: with constipation Qualified Code(s): K58.1 - I rritable bowel syndrome with constipation Abdominal pain Qualifiers: Abdominal location: generalized Qualified Code(s): R10.84 - Generalized abdominal pain Condition: Stable Disposition: HOME, SELF-CARE Additional Instructions: Irritable Bowel Syndrome The cause of irritable bowel syndrome is unknown. Although often called "colitis", it is not an infection or inflammatory condition. Symptoms vary, but can include periodic abdominal cramping, migratory abdominal pains, diarrhea, or constipation. Commonly, a few days of constipation is followed by loose stools, then constipation begins again. There is no specific test for irritable bowel syndrome. The disease is diagnosed by history and exam findings, and by finding no evidence of other disease. Irritable bowel syndrome is treated by making the stool softer and bulkier. Regular meals, including plenty of soluble fiber, help. Avoid foods which provoke cramping. Stool "bulking agents," such as Metamucil, help. Expect occasional flare-ups. Call the physician if symptoms worsen, such as severe or constant abdominal pain, fever, blood in the stool, increasing constipation, or more frequent or severe diarrhea. Your evaluation today, with a review of several previous visits, CT scans, x- rays, lab work, and the pathology reports from your most recent endoscopies all suggest that you most likely have irritable bowel syndrome-constipation type. You should continue taking the MiraLAX every day and drinking large glasses of water with the MiraLAX and throughout the day. Follow-up with your primary care provider to discuss how to manage what is most likely irritable bowel syndrome-constipation type. Be sure your primary care provider understands that you have elevated white blood cell counts with normal differentials all the time. RETURN TO THE EMERGENCY ROOM IF ANY NEW OR WORSENING SYMPTOMS. Referrals: ALAINA FREGOSO, [employer] REFINING EQUIPMENT OPERATOR-C [NURSE PRACTITIONER] - Follow up as needed I personally performed the services described in the documentation, reviewed and edited the documentation which was dictated to the scribe in my presence, and it accurately records my words and actions.
== END 2019-11-10 01:00 | disposition home or self-care (01) ==
LOC: ER 20:41
DX: K58.1 Irritable bowel syndrome with constipation (principal); K29.50 Unspecified chronic gastritis without bleeding; R10.84 Generalized abdominal pain; R10.817 Generalized abdominal tenderness; Z79.899 Other long term (current) drug therapy; F17.210 Nicotine dependence, cigarettes, uncomplicated
CPT/HCPCS: 36415; 74018; 80053; 81001; 81025; 83690; 85025; 99284

== ENCOUNTER 2019-12-29 20:15 | Emergency (ER) | payer OTHER, MEDICAID ==
[2019-12-29] MEDS ORDERED: ONDANSETRON HCL INJ/PF 4 MG/2 ML SDV IV ONE (21:20)
[2019-12-29] MEDS ORDERED: MORPHINE SULFATE 10 MG/ML INJ IV ONE (21:20)
[2019-12-29] MEDS ORDERED: KETOROLAC TROMETHAMINE INJ/PF 30 MG/1 ML SDV IV ONE (21:21)
[2019-12-29] MEDS ORDERED: NORMAL SALINE 500 ML IV ONE (21:21)
--- NOTE | 2019-12-29 22:17 | RADIOLOGY REPORT (SQ) ---
CLINICAL INDICATION: right hip pain. . TECHNIQUE: Noncontrast spiral axial CT imaging was obtained of the pelvis with multiplanar reconstructions. This exam was performed according to our departmental dose-optimization program, which includes automated exposure control, adjustment of the mA and/or kV according to patient size and/or use of iterative reconstruction techniques. COMPARISON: None. CORRELATION: None. FINDINGS: Imaging obtained from L3 through proximal thigh. No acute fractures identified the pelvis or either hip. Joint spaces are within normal limits, for age. Surrounding soft tissues demonstrate visualized portion of the solid organs be unremarkable. The bowel is nonobstructed. Diverticulosis of the colon distally without acute diverticulitis. The appendix appears normal. Pelvic contents are unremarkable. No adenopathy free air or free fluid IMPRESSION: Unremarkable examination. The cause of the patient's right hip pain is not identified on this examination..
--- NOTE | 2019-12-29 22:21 | RADIOLOGY REPORT (SQ) ---
INDICATION: low back pain/r sciatica. COMPARISON: None CORRELATION: None TECHNIQUE: Noncontrast spiral axial CT images were obtained through the lumbar spine with multiplanar reconstructions. This exam was performed according to our departmental dose-optimization program, which includes automated exposure control, adjustment of the mA and/or kV according to patient size and/or use of iterative reconstruction techniques. FINDINGS: No acute displaced fracture is identified of the lumbar spine. Alignment is anatomic. No focal alignment abnormality is identified. The intervertebral joints and facets are within normal limits, for age. L1-L2: No significant disease. L2-L3: No significant disease. L3-L4: No significant disease. L4-L5: Demonstrates mild disc bulging. There is asymmetric osteophyte formation extending right lateral. There appears be a small associated herniation. There is mild neural foraminal impingement. L5-S1: Broad-based disc bulging. Mild acquired spinal canal stenosis with reduction in the AP diameter of the thecal sac to approximately 9 mm. There is mild impingement upon the neural foramen bilaterally.. Neuroforamen are not well seen on noncontrast CT Nonobstructive punctate nephrolithiasis of the left kidney. No obstructive uropathy is seen.. IMPRESSION: No acute bony injury is seen to the lumbar spine. Degenerative changes L4-L5 and L5-S1 as described above. Surgically a small right lateral disc herniation at L4-L5 with associated osteophyte impinging mildly upon the neural foramen. Broad-based disc bulging L5-S1 with mild acquired spinal canal stenosis and mild bilateral neural foraminal impingement. Disc disease is better evaluated with MRI. Incidental note made of nonobstructing nephrolithiasis of the left kidney
[2019-12-29] MEDS ORDERED: DEXAMETHASONE SOD PHOS INJ 10 MG/1 ML VIAL IV ONE (23:35)
--- NOTE | 2019-12-29 23:47 | ER Document Report ---
Entered by FATOUMATA LONDON SCRIBE 12/29/192119 Acting as scribe for:SUSAN TANG MD ED General - General Chief Complaint: Hip Pain Stated Complaint: RIGHT HIP PAIN Time Seen by Provider: 12/29/19 21:04 [facility] [[facility]] - Follow up as needed Information source: Patient Notes: This 39-year-old female presents to the emergency department complaining of right hip pain that began yesterday morning. Patient describes the pain as shooting "on top" temporarily. Patient reports back pain, feet tingling and her right hip "giving out". Patient adds that pain is worsened to twist, move, get up and walk. Patient denies any recent injury. Patient mentions that she was diagnosed with sciatica after images that were taken 2 years ago. Patient states that she has been pain free for the past 1 year. Patient said that she never had pain in her hip with her sciatica pain, only in her back. Patient states that she sits for 8 hours a day and "only gets up to use the bathroom". TRAVEL OUTSIDE OF THE [place] IN LAST 30 DAYS: No - Related Data Allergies/Adverse Reactions: No Known Allergies Allergy (Verified 12/29/19 20:22) Home Medications: metformin, amox Past Medical History - General Information source: Patient - Social History Smoking Status: Current Every Day Smoker Cigarette use (# per day): Yes Chew tobacco use (# tins/day): No Frequency of alcohol use: None Drug Abuse: None Family History: Reviewed & Not Pertinent, Arthritis, CVA, Hyperlipidemia, Other - PE Patient has suicidal ideation: No Patient has homicidal ideation: No Endocrine Medical History: Reports: Hx Diabetes Mellitus Type 2 Musculoskeletal Medical History: Reports Hx Arthritis, Reports Hx Musculoskeletal Deformity, Reports Hx Musculoskeletal Trauma - hip pelvic femur coccyx fracture Psychiatric Medical History: Reports: Hx Anxiety, Hx Bipolar Disorder, Hx Depression Traumatic Medical History: Reports: Hx Fractures - hip pelvic femur coccyx Past Surgical History: Reports: Hx Section - x1, Hx Tubal Ligation - Immunizations Immunizations up to date: Yes Hx Diphtheria, Pertussis, Tetanus Vaccination: Yes Review of Systems - Review of Systems Constitutional: No symptoms reported EENT: No symptoms reported Cardiovascular: No symptoms reported Respiratory: No symptoms reported Gastrointestinal: No symptoms reported Genitourinary: No symptoms reported Female Genitourinary: No symptoms reported Musculoskeletal: Back pain, Other - right hip pain, feet tingly. Skin: No symptoms reported Hematologic/Lymphatic: No symptoms reported Neurological/Psychological: See HPI. denies: Homicidal ideation, Suicidal ideation -: Yes All other systems reviewed and negative Physical Exam - Vital signs Vitals: Temp Pulse Resp BP Pulse Ox 99.0 F 127 H 18 130/77 H 98 12/29/19 20:18 12/29/19 20:18 12/29/19 20:18 12/29/19 20:18 12/29/19 20:18 - Notes Notes: Physical Exam: General: Alert, appears well. HEENT: Normocephalic. Atraumatic. PERRL. Extraocular movements intact. Oropharynx clear. Neck: Supple. Non-tender. Respiratory: No respiratory distress. Clear and equal breath sounds bilaterally. Cardiovascular: Regular rate and rhythm. Abdominal: Normal Inspection. Non-tender. No distension. Normal Bowel Sounds. Back: No gross abnormalities. Extremities: Moves all four extremities. Upper extremities: Normal inspection. Normal ROM. Lower extremities: No edema. Normal ROM. Straight leg positive at 45 on right lower extremity. Sensation in tact. No pain on hip joint or movement with full ROM. No crepitus. Neurological: Normal cognition. AAOx4. Normal speech. Psychological: Normal affect. Normal Mood. Skin: Warm. Dry. Normal color. Course - Re-evaluation Re-evalutation: 12/29/19 23:37 Patient resting in bed not showing signs of significant distress at this time. - Vital Signs Vital signs: Temp Pulse Resp BP Pulse Ox 99.0 F 127 H 18 130/77 H 98 12/29/19 20:23 12/29/19 20:18 12/29/19 20:18 12/29/19 20:18 12/29/19 20:18 - Laboratory Laboratory results interpreted by me: 12/29/19 23:07 POC Glucose 126 H Accu-Chek 126 slightly elevated in a patient with type 2 diabetes mellitus on metformin 500 twice daily. - Diagnostic Test Radiology reviewed: Image reviewed, Reports reviewed Radiology results interpreted by me: 12/29/19 23:38 CT scan of lumbar spine shows L4-5 and L5-S1 disc space disease. There is a disc bulge mild at L4-5 and there is an osteophyte . At L5 5 S1 there is a broad-based disc bulge causing bilateral foraminal encroachment. Also noted a spinal stenosis. 12/29/19 23:39 CT scan of hip pelvis disclose no acute fracture no acute bony abnormality noted. Discharge - Discharge Clinical Impression: DDD (degenerative disc disease), lumbosacral, Right-sided low back pain with sciatica Condition: Good Disposition: HOME, SELF-CARE Additional Instructions: Low Back Pain Three out of every four people will have an episode of disabling back pain during their lifetime. Most commonly the pain is due to straining of the muscles and ligaments in the low back. Usual treatment includes: (1) Rest on a firm surface. Avoid lying on your stomach. (2) Ice pack the painful area. After a few days, gentle heat may be used intermittently to relax the area, or ice packs can be continued. (3) Medication may be needed -- muscle relaxers and antiinflammatory medicines are commonly used. (4) As the back improves, exercises are prescribed to strengthen the back and abdominal muscles. Your doctor will advise you on the proper care for your back at each stage in your recovery. You may be better in a few days -- or healing may take several weeks. If new symptoms of a "herniated disc" (radiation of pain, numbness, or tingling down the back of the leg or weakness in the leg) occur, you should be re-examined. Further testing may be necessary.Sciatica Your symptoms suggest "sciatica." The pain of sciatica typically radiates down the leg. Numbness in the foot or calf may also occur. Sciatica is caused by irritation of the sciatic nerve or its branches. The irritation can be due to a herniated disk in the spine, swelling and inflammation in the muscles surrounding the sciatic nerve, or direct injury of the nerve itself. Most cases of sciatica will resolve with medical treatment. Bed rest is usually recommended initially. Surgery is only necessary when the condition will not improve with rest and antiinflammatory medication. Muscle relaxers are often given if muscle soreness is present. A CAT scan of the back may be performed if a herniated disk is suspected. Re-examination is necessary if you develop increasing numbness, localized weakness in the foot or ankle, or if the pain does not respond to rest. Prescriptions: Tramadol HCl [Ultram 50 mg Tablet] 50 mg PO Q6HP PRN 5 Days #20 tablet PRN Reason: Methylprednisolone [Medrol Dosepack (4 mg/Tab) 21 Tab/Dosepak] 4 mg PO ASDIR PRN #21 tab.ds.pk PRN Reason: Ibuprofen [Motrin 800 mg Tablet] 800 mg PO Q8H PRN #30 tab PRN Reason: back pain [facility]errals: [facility] [[facility]] - Follow up as needed I personally performed the services described in the documentation, reviewed and edited the documentation which was dictated to the scribe in my presence, and it accurately records my words and actions.
[2019-12-30 00:08] VITALS: BP 125/68
== END 2019-12-30 00:09 | disposition home or self-care (01) ==
LOC: ER 20:15
DX: M51.37 Other intervertebral disc degeneration, lumbosacral region (principal); M54.41 Lumbago with sciatica, right side; M25.551 Pain in right hip; M54.9 Dorsalgia, unspecified; R20.0 Anesthesia of skin; F17.210 Nicotine dependence, cigarettes, uncomplicated; E11.9 Type 2 diabetes mellitus without complications
CPT/HCPCS: 99284; 96361; 96374; 96375; 82962; 72131; 72192; J1885; J2270; J2405; J7040; J1100

== ENCOUNTER 2020-01-29 11:58 | Emergency (ER) | payer MEDICAID, OTHER ==
[2020-01-29 12:02] VITALS: BP 135/85
--- NOTE | 2020-01-29 13:08 | ER Document Report ---
ED Medical Screen (RME) - General Chief Complaint: Hip Pain Stated Complaint: HIP PAIN Time Seen by Provider: 01/29/20 13:06 Primary Care Provider: [facility] [Primary Care Provider] - Follow up as needed Mode of Arrival: Ambulatory Information source: Patient Notes: 39-year-old female presents to ED for complaint of hands left hand tingling since this morning when she woke up, her jaw locks up every time she tries to eat for the last 3 days she is got her hip and back that is hurting more than usual and she is not been able to sleep due to the pain her vagina is itching and she does not know what is going on with that and she has too much to just be all at one time. She states she has a history of sciatica kidney stones diabetes and diverticulosis. 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 I have greeted and performed a rapid initial assessment of this patient. A comprehensive ED assessment and evaluation of the patient, analysis of test results and completion of medical decision making process will be conducted by an additional ED providers. TRAVEL OUTSIDE OF THE [place] IN LAST 30 DAYS: No - Related Data Allergies/Adverse Reactions: No Known Allergies Allergy (Verified 12/29/19 20:22) Past Medical History - Past Medical History Cardiac Medical History: Denies: Hx Coronary Artery Disease, Hx Heart Attack, Hx Hypertension Pulmonary Medical History: Denies: Hx Asthma, Hx Bronchitis, Hx COPD, Hx Pneumonia Neurological Medical History: Denies: Hx Cerebrovascular Accident, Hx Seizures Endocrine Medical History: Reports: Hx Diabetes Mellitus Type 2 Renal/ Medical History: Denies: Hx Peritoneal Dialysis Musculoskeltal Medical History: Reports Hx Arthritis, Reports Hx Musculoskeletal Deformity, Reports Hx Musculoskeletal Trauma - hip pelvic femur coccyx fracture Psychiatric Medical History: Reports: Hx Anxiety, Hx Bipolar Disorder, Hx Depression Traumatic Medical History: Reports: Hx Fractures - hip pelvic femur coccyx Past Surgical History: Reports: Hx Section - x1, Hx Tubal Ligation - Immunizations Immunizations up to date: Yes Hx Diphtheria, Pertussis, Tetanus Vaccination: Yes Physical Exam - Vital signs Vitals: Temp Pulse Resp BP Pulse Ox 98.6 F 116 H 16 135/85 H 97 01/29/20 12:01 01/29/20 12:01 01/29/20 12:01/29/20 12:01 01/29/20 12:01 Course - Vital Signs Vital signs: Temp Pulse Resp BP Pulse Ox 98.6 F 116 H 16 135/85 H 97 01/29/20 12:01/29/20 12:01 01/29/20 12:01 01/29/20 12:01 01/29/20 12:01 Doctor's Discharge - Discharge [facility]errals: [facility] [[facility]] - Follow up as needed
--- NOTE | 2020-01-29 13:41 | RADIOLOGY REPORT (SQ) ---
EXAM DESCRIPTION: L SPINE WHOLE IMAGES COMPLETED DATE/TIME: 01/29/2020 1:33 pm REASON FOR STUDY: Pain COMPARISON: 04/17/2018. NUMBER OF VIEWS: Five views including obliques. TECHNIQUE: AP, lateral, oblique, and sacral radiographic images acquired of the lumbar spine. LIMITATIONS: None. FINDINGS: MINERALIZATION: Normal. SEGMENTATION: Normal. No transitional anatomy. ALIGNMENT: Normal. VERTEBRAE: Maintained height. No fracture or worrisome bone lesion. DISCS: Preserved height. No significant osteophytes or end plate irregularity. POSTERIOR ELEMENTS: Pedicles and facets are intact. No pars defect or posterior arch defects. HARDWARE: None in the spine. PARASPINAL SOFT TISSUES: Normal. PELVIS: Intact as visualized. No fractures or worrisome bone lesions. SI joints intact. OTHER: No other significant finding. IMPRESSION: NORMAL 5 VIEW LUMBAR SPINE. TECHNICAL DOCUMENTATION: JOB ID: [id number] 2010 [employer]- All Rights Reserved Reading location - IP/workstation name: [email or web address]
[2020-01-29 14:02] LABS: APPEARANCE,URINE CLEAR; BILIRUBIN,URINE NEGATIVE (NEGATIVE); COLOR,URINE YELLOW; GLUCOSE, URINE >=500 mg/dL (NEGATIVE); KETONES,URINE TRACE mg/dL (NEGATIVE); LEUKOCYTE ESTERASE,URINE NEGATIVE (NEGATIVE); NITRITE,URINE NEGATIVE (NEGATIVE); PROTEIN,URINE NEGATIVE (NEGATIVE); URINE SPECIFIC GRAVITY 1.018; UROBILINOGEN,URINE NEGATIVE mg/dL (<2.0)
[2020-01-29] MEDS ORDERED: KETOROLAC TROMETHAMINE 60 MG/2 ML SDV IM ONE (14:34)
[2020-01-29] MEDS ORDERED: NORMAL SALINE 1000 ML 1,000 ML IV ONE (14:35)
[2020-01-29 14:48] LABS: BACTERIA (WET MOUNT) 4+ BACTERIA SEEN; EPITHELIALS (WET MOUNT) 3+ EPITHELIALS SEEN; RBCS (WET MOUNT) RARE RBCS SEEN; T.VAGINALIS (WET MOUNT) NO TRICHOMONAS SEEN; WBCS (WET MOUNT) 4+ WBCS SEEN; YEAST (WET MOUNT) NO YEAST SEEN
[2020-01-29 15:41] LABS: ABSOLUTE BASOPHILS # (AUTO) 0.1 10^3/uL (0.0-0.2); ABSOLUTE EOSINOPHILS # (AUTO) 0.3 10^3/uL (0.0-0.6); ABSOLUTE LYMPHOCYTES (AUTO) 3.3 10^3/uL (0.5-4.7); ABSOLUTE MONOCYTES (AUTO) 0.6 10^3/uL (0.1-1.4); ABSOLUTE NEUT (AUTO) 9.8 10^3/uL (1.7-8.2); BASOPHILS % (AUTO) 0.4 % (0-2); EOSINOPHILS % (AUTO) 2.2 % (0-6); HEMATOCRIT 37.2 % (36.0-47.0); HEMOGLOBIN 12.2 g/dL (12.0-15.5); LYMPHOCYTES % (AUTO) 23.7 % (13-45); MEAN CORPUSCULAR HEMOGLOBIN 22.9 pg (27.0-33.4); MEAN CORPUSCULAR HGB CONC 32.7 g/dL (32.0-36.0); MEAN CORPUSCULAR VOLUME 70 fl (80-97); MONOCYTES % (AUTO) 4.4 % (3-13); PLATELET COUNT 248 10^3/uL (150-450); RED BLOOD COUNT 5.31 10^6/uL (3.72-5.28); RED CELL DISTRIBUTION WIDTH 19.6 % (11.5-14.0); SEGMENTED NEUTROPHILS % (AUTO) 69.3 % (42-78); TOTAL CELLS COUNTED % (AUTO) 100 %; WHITE BLOOD COUNT 14.1 10^3/uL (4.0-10.5)
--- NOTE | 2020-01-29 15:43 | ER Document Report ---
ED General - General Chief Complaint: Vaginal Pain Stated Complaint: HIP PAIN Time Seen by Provider: 01/29/20 13:06 Primary Care Provider: RYAN HAILE [NO LOCAL MD] - Follow up as needed Mode of Arrival: Ambulatory Information source: Patient TRAVEL OUTSIDE OF THE [place] IN LAST 30 DAYS: No - HPI Notes: Patient is here with several different complaints. She states that when she chews her left jaw "locks up". She also states she has intermittent "tingling" throughout her whole left hand that occurs randomly. Patient also complains of chronic right hip pain. She states she has been to orthopedics for this pain but was told that it was a disc in her back it was causing the pain. She states she does not know of any new injury to this right hip but it is hurting worse today. She also states that she is having vaginal irritation and thinks this is due to new "lavender wipes" that her [id number] brought to the house. Patient's vaginal itching and irritation are constant. Nothing makes them better or worse. They radiate throughout the vaginal area. They are mild to moderate in intensity. - Related Data Allergies/Adverse Reactions: No Known Allergies Allergy (Verified 12/29/19 20:22) Past Medical History - General Information source: Patient - Social History Smoking Status: Current Every Day Smoker Frequency of alcohol use: None Drug Abuse: None Family History: Reviewed & Not Pertinent, Arthritis, CVA, Hyperlipidemia, Other - PE Patient has homicidal ideation: No - Past Medical History Cardiac Medical History: Denies: Hx Coronary Artery Disease, Hx Heart Attack, Hx Hypertension Pulmonary Medical History: Denies: Hx Asthma, Hx Bronchitis, Hx COPD, Hx Pneumonia Neurological Medical History: Denies: Hx Cerebrovascular Accident, Hx Seizures Endocrine Medical History: Reports: Hx Diabetes Mellitus Type 2 Renal/ Medical History: Denies: Hx Peritoneal Dialysis Musculoskeletal Medical History: Reports Hx Arthritis, Reports Hx Musculoskeletal Deformity, Reports Hx Musculoskeletal Trauma - hip pelvic femur coccyx fracture Psychiatric Medical History: Reports: Hx Anxiety, Hx Bipolar Disorder, Hx Depression Traumatic Medical History: Reports: Hx Fractures - hip pelvic femur coccyx Past Surgical History: Reports: Hx Section - x1, Hx Tubal Ligation - Immunizations Immunizations up to date: Yes Hx Diphtheria, Pertussis, Tetanus Vaccination: Yes Review of Systems - Review of Systems Constitutional: denies: Chills, Fever Cardiovascular: denies: Chest pain, Palpitations Respiratory: denies: Cough, Short of breath -: Yes All other systems reviewed and negative Physical Exam - Vital signs Vitals: Temp Pulse Resp BP Pulse Ox 98.6 F 116 H 16 135/85 H 97 01/29/20 12:01 01/29/20 12:01 01/29/20 12:01 01/29/20 12:01 01/29/20 12:01 Interpretation: Normal - General General appearance: Appears well, Alert - HEENT Head: Normocephalic, Atraumatic Eyes: Normal Pupils: PERRL - Respiratory Respiratory status: No respiratory distress Chest status: Nontender Breath sounds: Normal Chest palpation: Normal - Cardiovascular Rhythm: Tachycardia Heart sounds: Normal auscultation Murmur: No - Abdominal Inspection: Normal Distension: No distension Bowel sounds: Normal Tenderness: Nontender Organomegaly: No organomegaly - Back Back: Normal, Nontender - Extremities General upper extremity: Normal inspection, Nontender, Normal color, Normal ROM, Normal temperature General lower extremity: Normal inspection, Nontender, Normal color, Normal temperature, Other - The right hip has a limited range of motion secondary to pain. However I was able to diffusely palpate the right hip both anterior laterally and posterior and was not able to appreciate any significant tenderness on palpation nor did the joint feel full. Inspection of the right hip was also unremarkable.. No: Eloisa's sign - Neurological Neuro grossly intact: Yes Cognition: Normal Orientation: AAOx4 [place] Coma Scale Eye Opening: Spontaneous [place] Coma Scale Verbal: Oriented [place] Coma Scale Motor: Obeys Commands [place] Coma Scale Total: 15 Speech: Normal Cranial nerves: Normal Cerebellar coordination: Normal. 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 No: Pronator drift, Weakness Sensory: Normal - Psychological Associated symptoms: Normal affect, Normal mood - Skin Skin Temperature: Warm Skin Moisture: Dry Skin Color: Normal Course - Re-evaluation Re-evalutation: 01/29/20 17:13 Patient presents with multiple complaints. I do believe that patient may have some form of TMJ and will refer her to dental. She also most likely has some form of compression neuropathy such as carpal tunnel. 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 In addition patient has vaginal irritation and some white discharge and will be treated for bacterial vaginosis. I do not find an obvious cause for her chronic hip pain will for her back to orthopedics. Her white blood cell count is elevated however is chronically elevated on every visit she has had here. I do not find any evidence of acute pathology to explain the white blood cell count. She did recently receive a steroid injection which could account for this. Patient was discharged home with pain medication Flagyl and follow-up as above - Vital Signs Vital signs: Temp Pulse Resp BP Pulse Ox 98.6 F 116 H 16 135/85 H 97 01/29/20 13:04 01/29/20 12:01 01/29/20 12:01 01/29/20 12:01 01/29/20 12:01 - Laboratory Result Diagrams: 01/29/20 15:25 01/29/20 15:25 Laboratory results interpreted by me: 01/29/20 01/29/20 01/29/20 13:35 15:25 15:25 WBC 14.1 H RBC 5.31 H MCV 70 L MCH 22.9 L RDW 19.6 H Absolute Neuts (auto) 9.8 H Sodium 135.2 L Glucose 206 H AST 103 H ALT 64 H Urine Glucose (UA) >=500 H Urine Ketones TRACE H - Diagnostic Test Radiology reviewed: Image reviewed, Reports reviewed Discharge - Discharge Clinical Impression: Bacterial vaginosis, Carpal tunnel syndrome of left wrist, Right hip pain, Hepatic steatosis TMJ arthralgia Qualifiers: Laterality: left Qualified Code(s): M26.622 - Arthralgia of left temporomandibular joint Condition: Stable Disposition: HOME, SELF-CARE Instructions: Temporomandibular Joint Syndrome ([facility]), Vaginosis, Bacterial ([facility]) Additional Instructions: Please follow-up with dental soon as possible for your left jaw pain. Please follow-up with orthopedics concerning your left wrist pain as this may be signs of carpal tunnel. Please follow up with your GI for the fatty liver. Prescriptions: Metronidazole [Flagyl 500 mg Tablet] 500 mg PO BID 7 Days #14 tablet Tramadol HCl [Ultram] 50 mg PO Q6 PRN 3 Days #12 tablet PRN Reason: Forms: Return to Work [facility]errals: [facility] [NO LOCAL MD] - Follow up as needed AURA DAVIS JR, [ACTIVE PROVISIONAL STAFF] - Follow up in 3-5 days
[2020-01-29 15:56] LABS: ALBUMIN 3.6 g/dL (3.5-5.0); ALKALINE PHOSPHATASE 114 U/L (38-126); ANION GAP 7 (5-19); ASPARTATE AMINO TRANSFERASE 103 U/L (14-36); BILIRUBIN,TOTAL 0.3 mg/dL (0.2-1.3); BLOOD UREA NITROGEN 10 mg/dL (7-20); CALCIUM 8.9 mg/dL (8.4-10.2); CARBON DIOXIDE 25 mmol/L (22-30); CHLORIDE 103 mmol/L (98-107); GLUCOSE 206 mg/dL (75-110); POTASSIUM 4.3 mmol/L (3.6-5.0); TOTAL PROTEIN 6.6 g/dL (6.3-8.2)
[2020-01-29 16:18] LABS: CHLAM PCR NOT DETECTED (NOT DETECT)
--- NOTE | 2020-01-29 16:59 | RADIOLOGY REPORT (SQ) ---
EXAM DESCRIPTION: CT ABD/PELVIS NO ORAL OR IV IMAGES COMPLETED DATE/TIME: 01/29/2020 3:29 pm REASON FOR STUDY: rlq pain. Right hip pain. COMPARISON: CT pelvis, 12/29/2019. TECHNIQUE: CT scan of the abdomen and pelvis performed without intravenous or oral contrast. Images reviewed with lung, soft tissue, and bone windows. Reconstructed coronal and sagittal MPR images revi ewed. All images stored on PACS. All CT scanners at this facility use dose modulation, iterative reconstruction, and/or weight based d osing when appropriate to reduce radiation dose to as low as reasonably achievable (ALARA). [facility]: Dose Right [facility]: CareDose [facility]: Dose Right [facility]: Teradose 4D [facility]: [employer] RADIATION DOSE: CT Rad equipment meets quality standard of care and radiation dose reduction techniq ues were employed. CTDIvol: 17.7 mGy. DLP: 1105 mGy-cm.mGy. LIMITATIONS: None. FINDINGS: LOWER CHEST: No significant findings. No nodules or infiltrates. NON-CONTRASTED LIVER, SPLEEN, ADRENALS: There is moderate hepatomegaly with liver measuring 24.7 cm c raniocaudal at the midclavicular line. Severe diffuse hepatic steatosis with focal fatty sparing at the gallbladder fossa. Evaluation of the parenchyma is limited without IV contrast and due to the to create of hepatic steatosis. Spleen has normal size. No adrenal mass. PANCREAS: No masses. No peripancreatic inflammatory changes. GALLBLADDER: No identified stones by CT criteria. No inflammatory changes to suggest cholecystitis. RIGHT KIDNEY AND URETER: No suspicious masses. Assessment limited by lack of IV contrast. Punctate nonobstructing right renal calculi. No obstructing renal or ureteral calculus. No hydronephrosis o r hydroureter. LEFT KIDNEY AND URETER: No suspicious masses. Assessment limited by lack of IV contrast. Multiple p unctate nonobstructing left renal calculi. No obstructing renal or ureteral calculus. No hydroneph rosis or hydroureter. AORTA AND RETROPERITONEUM: No aneurysm. No retroperitoneal masses or adenopathy. BOWEL AND PERITONEAL CAVITY: No obvious masses or inflammatory changes. No free fluid. APPENDIX: Normal. PELVIS, BLADDER, AND ABDOMINAL WALL:No abnormal masses. No free fluid. Bladder normal. BONES: No fracture, lytic or blastic bone lesion. No evidence of avascular necrosis. OTHER: No other significant finding. IMPRESSION: 1. No CT abnormality to explain the patient's right hip pain. 2. Bilateral nonobstructing renal calculi. No obstructing renal or ureteral calculus. 3. Severe hepatic steatosis. 4. Appendix is normal. COMMENT: Quality ID # [id number]: Final reports with documentation of one or more dose reduction techniques (e.g., Automated exposure control, adjustment of the mA and/or kV according to patient size, use of iterative reconstruction technique) TECHNICAL DOCUMENTATION: JOB ID: [id number] 2010 [employer]- All Rights Reserved Reading location - IP/workstation name: [email or web address]
== END 2020-01-29 18:43 | disposition home or self-care (01) ==
LOC: ER 11:58
DX: N76.0 Acute vaginitis (principal); B96.89 Other specified bacterial agents as the cause of diseases classified elsewhere; G56.02 Carpal tunnel syndrome, left upper limb; K76.0 Fatty (change of) liver, not elsewhere classified; M26.622 Arthralgia of left temporomandibular joint; R10.2 Pelvic and perineal pain; R20.0 Anesthesia of skin; M25.551 Pain in right hip; G89.29 Other chronic pain; F17.200 Nicotine dependence, unspecified, uncomplicated; E11.9 Type 2 diabetes mellitus without complications
CPT/HCPCS: 99284; 96372; 96360; 36415; 87210; 85025; 80053; 81001; 87491; 87591; 72110; 74176; J1885; J7030

== ENCOUNTER 2020-03-29 21:38 | Emergency (ER) | payer MEDICAID ==
[2020-03-30 00:49] VITALS: BP 124/78
[2020-03-30] MEDS ORDERED: ONDANSETRON HCL INJ/PF 4 MG/2 ML SDV IV ONE (01:44)
[2020-03-30] MEDS ORDERED: KETOROLAC TROMETHAMINE INJ/PF 30 MG/1 ML SDV IV ONE (01:44)
[2020-03-30] MEDS ORDERED: NORMAL SALINE 1000 ML 1,000 ML IV ONE ×2 (01:45→04:35)
--- NOTE | 2020-03-30 01:46 | ER Document Report ---
ED General - General Chief Complaint: Stiff Neck Stated Complaint: COUGH/VOMITING/EAR PAIN Time Seen by Provider: 03/30/20 00:51 Primary Care Provider: DEE EDWARDS DO [NO LOCAL MD] - Follow up as needed Notes: Patient is a 39-year-old female that comes to the emergency department for chief complaint of sick symptoms for the past 7 days approximately. She states that she started out with sinus congestion and pressure, developed a sore throat, cough, fevers, she was seen by primary care, tested negative for COVID-19, placed on both azithromycin and amoxicillin. She states she thought she was getting better but then she started having cough and congestion again along with 2 episodes of vomiting today. She states her child is also vomiting but has no other symptoms. She denies any obvious sick contacts, denies recent travel. Patient denies asthma, diabetes. She denies recreational drugs. She does smo ke. TRAVEL OUTSIDE OF THE [place] IN LAST 30 DAYS: No - Related Data Allergies/Adverse Reactions: No Known Allergies Allergy (Verified 12/29/19 20:22) Past Medical History - General Information source: Patient - Social History Smoking Status: Current Every Day Smoker Smoking Education Provided: Yes - <3 min Frequency of alcohol use: None Drug Abuse: None Lives with: Family Family History: Reviewed & Not Pertinent, Arthritis, CVA, Hyperlipidemia, Other - PE Patient has homicidal ideation: No - Past Medical History Cardiac Medical History: Denies: Hx Coronary Artery Disease, Hx Heart Attack, Hx Hypertension Pulmonary Medical History: Denies: Hx Asthma, Hx Bronchitis, Hx COPD, Hx Pneumonia Neurological Medical History: Denies: Hx Cerebrovascular Accident, Hx Seizures Endocrine Medical History: Reports: Hx Diabetes Mellitus Type 2 Renal/ Medical History: Denies: Hx Peritoneal Dialysis Musculoskeletal Medical History: Reports Hx Arthritis, Reports Hx Musculoskeletal Deformity, Reports Hx Musculoskeletal Trauma - hip pelvic femur coccyx fracture Psychiatric Medical History: Reports: Hx Anxiety, Hx Bipolar Disorder, Hx Depression Traumatic Medical History: Reports: Hx Fractures - hip pelvic femur coccyx Past Surgical History: Reports: Hx Section - x1, Hx Tubal Ligation - Immunizations Immunizations up to date: Yes Hx Diphtheria, Pertussis, Tetanus Vaccination: Yes Review of Systems - Review of Systems Constitutional: See HPI EENT: See HPI Cardiovascular: No symptoms reported Respiratory: See HPI Gastrointestinal: See HPI Genitourinary: No symptoms reported Female Genitourinary: No symptoms reported Musculoskeletal: No symptoms reported Skin: No symptoms reported Hematologic/Lymphatic: No symptoms reported Neurological/Psychological: No symptoms reported Physical Exam - Vital signs Vitals: Temp Pulse Resp BP Pulse Ox 99.6 F 129 H 16 130/75 H 97 03/29/20 22:04 03/29/20 22:04 03/29/20 22:04 03/29/20 22:04 03/29/20 22:04 - Notes Notes: GENERAL: Alert, interacts well. No acute distress. HEAD: Normocephalic, atraumatic. EYES: Pupils equal, round, and reactive to light. Extraocular movements intact. ENT: Oral mucosa dry, tongue midline. Mild tonsillitis with bilateral exudates but unremarkable uvula, no peritonsillar abscess. Airway patent. Nares patent, sinuses non-tender, ear canals unremarkable, TM's intact. NECK: Full range of motion. Supple. Trachea midline. Moderate bilateral anterior cervical adenopathy. No nuchal rigidity. LUNGS: Clear to auscultation bilaterally, no wheezes, rales, or rhonchi. No respiratory distress. Non-tender chest wall. Occasional mild cough. HEART: Tachycardic, normal rhythm, no murmur ABDOMEN: Soft, non-tender. Non-distended. Bowel sounds present in all 4 quadrants. GENITOURINARY: Deferred EXTREMITIES: Moves all 4 extremities spontaneously. No edema, normal radial and dorsalis pedis pulses bilaterally. No cyanosis. BACK: no cervical, thoracic, lumbar midline tenderness. No saddle anesthesia, normal distal neurovascular exam. Moves all extremities in full range of motion. NEUROLOGICAL: Alert and oriented x3. Normal speech. Cranial nerves II through XII grossly intact. Strength 5/5 in all extremities. PSYCH: Normal affect, normal mood. SKIN: Warm, dry, normal turgor. No rashes or lesions noted. Course - Re-evaluation Re-evalutation: Patient is talkative and well-appearing on my exam. She does have some coughing, she reported vomiting earlier, she does have dry mucous membranes, she does have noted exudative pharyngitis and anterior cervical adenopathy. However her abdomen is nontender, her lungs are clear, she has no hypoxia. She is tachycardic. Initially she was unable to give a urinalysis, after 2 L normal saline patient was able to provide a urine and the urine was unremarkable. Chest x-ray unremarkable. CBC shows leukocytosis but patient recently completed a 5-day course of steroids. She does have a blood culture pending. Chemistry nonspecific. Overall based on her initial congestion, developing cough, developing fevers, developing vomiting, and generalized symptoms of viral syndrome I do suspect this is viral in nature. No nuchal rigidity, no current headache. Patient will actually be tested again for COVID-19 because her sym ptoms are so suggestive of this despite her initial negative test when she first began her symptoms. I discussed this and patient requested it. Patient states she feels a lot better after nausea medication, IV fluids, she is tolerating p.o. without difficulty, she is ambulating around and talking with no signs of distress. At this time I feel patient is stable for discharge, tachycardia has resolved on my exam, patient will be contacted for remaining results, she will return for any concerning symptoms, these were discussed in detail. Patient states appreciation and agreement. Given dexamethasone for symptoms. Stable and well-appearing at time of discharge. - Vital Signs Vital signs: Temp Pulse Resp BP Pulse Ox 98.6 F 105 H 18 124/78 98 03/30/20 00:45 03/30/20 04:29 03/30/20 04:29 03/30/20 00:45 03/30/20 04:29 - Laboratory Result Diagrams: 03/30/20 01:47 03/30/20 01:47 Laboratory results interpreted by me: 03/30/20 03/30/20 03/30/20 01:47 01:47 05:52 WBC 18.0 H Hgb 11.8 L MCV 73 L MCH 23.0 L MCHC 31.8 L RDW 19.0 H Band Neutrophils % 2 L Abs Neuts (Manual) 11.2 H Abs Lymphs (Manual) 5.4 H Absolute Eos (Manual) 0.7 H Sodium 135.4 L Creatinine 0.45 L Glucose 226 H AST 74 H ALT 83 H Urine Glucose (UA) 150 H Urine Blood SMALL H Ur Leukocyte Esterase TRACE H Discharge - Discharge Clinical Impression: Cough, Exudative pharyngitis, Body aches, Dehydration Vomiting Qualifiers: Vomiting type: unspecified Vomiting Intractability: non-intractable Nausea presence: unspecified Qualified Code(s): R11.10 - Vomiting, unspecified Condition: Stable Disposition: HOME, SELF-CARE Additional Instructions: Your work-up and examination is very suspicious for viral illness, as result you have been tested for COVID-19 again and you will be contacted with the results. You have been treated with dexamethasone to help with your symptoms. Take Phenergan for nausea, take Tylenol and ibuprofen for pain and body aches, drink plenty of fluids and rest. Symptoms should simply resolve with time. Return if you worsen including difficulty breathing, uncontrolled vomiting, or any other concerning or worsening symptoms. As a person under investigation for COVID-19, the [place] Department of Health and Human Services (division on public health) advises you to adhere to the following guidance until your test results are reported to you. If your test result is positive, you will receive additional information from your provider and your local health department at that time. Remain at home until you are cleared by the health provider or public health a uthorities. Keep a log of visitors to your home, notify any visitors to your home of your isolation status. If you plan to move to a new address or leave the county, notify the local health department in your County. Call your Doctor or seek care if you have an urgent medical need. Before seeking medical care, call him to get instructions from the provider before arriving at the medical office, clinic, or hospital. Notify them that you are being tested for the virus (COVID-19) so that arrangements can be made, as necessary, to prevent transmission to others in the healthcare setting. Next, notify the local health department in your county. If a medical emergency arises and you need to call 911, inform the first responders that you are being tested for the virus that causes COVID-19. Next, notify the local health department in your county. Prescriptions: Promethazine HCl [Phenergan 25 mg Tablet] 25 mg PO Q6H PRN #20 tablet PRN Reason: Forms: Return to Work Referrals: DEE EDWARDS DO [NO LOCAL MD] - Follow up as needed
[2020-03-30 02:12] LABS: HEMOGLOBIN 11.8 g/dL (12.0-15.5); MEAN CORPUSCULAR HGB CONC 31.8 g/dL (32.0-36.0); MEAN CORPUSCULAR VOLUME 73 fl (80-97); PLATELET COUNT 257 10^3/uL (150-450)
[2020-03-30 02:22] LABS: ALBUMIN 3.5 g/dL (3.5-5.0); ALKALINE PHOSPHATASE 104 U/L (38-126); ANION GAP 9 (5-19); ASPARTATE AMINO TRANSFERASE 74 U/L (14-36); BILIRUBIN,TOTAL 0.6 mg/dL (0.2-1.3); BLOOD UREA NITROGEN 10 mg/dL (7-20); CALCIUM 8.7 mg/dL (8.4-10.2); CARBON DIOXIDE 22 mmol/L (22-30); CHLORIDE 104 mmol/L (98-107); GLUCOSE 226 mg/dL (75-110); POTASSIUM 4.2 mmol/L (3.6-5.0); TOTAL PROTEIN 6.6 g/dL (6.3-8.2)
[2020-03-30 02:40] LABS: ABSOLUTE LYMPHOCYTES# (MANUAL) 5.4 10^3/uL (0.5-4.7); ABSOLUTE MONOCYTES # (MANUAL) 0.7 10^3/uL (0.1-1.4); BAND NEUTROPHILS % (MANUAL) 2 % (3-5); BASOPHILS % (MANUAL) 0 % (0-2); EOSINOPHILS % (MANUAL) 4 % (0-6); LYMPHOCYTES % (MANUAL) 30 % (13-45); MONOCYTES % (MANUAL) 4 % (3-13); SEGMENTED NEUTROPHILS % (MAN) 60 % (42-78); TOTAL CELLS COUNTED 100
[2020-03-30 02:41] LABS: ANISOCYTOSIS 2+; PLATELET COMMENT ADEQUATE
--- NOTE | 2020-03-30 02:44 | RADIOLOGY REPORT (SQ) ---
EXAM DESCRIPTION: XR CHEST 1 VIEW COMPLETED DATE/TME: 03/30/2020 01:44 CLINICAL HISTORY: 39 years, Female, productive cough, fever COMPARISON: 12/18/2017 chest NUMBER OF VIEWS: 1 TECHNIQUE: Portable chest LIMITATIONS: None. FINDINGS: The heart size is normal. Mild elevation of the right hemidiaphragm. Lungs are clear. No pneumothorax IMPRESSION: No acute cardiopulmonary process copyright 2010 [employer]- All Rights Reserved
[2020-03-30 06:23] LABS: APPEARANCE,URINE SLIGHTLY-CLOUDY; BILIRUBIN,URINE NEGATIVE (NEGATIVE); COLOR,URINE YELLOW; GLUCOSE, URINE 150 mg/dL (NEGATIVE); KETONES,URINE NEGATIVE (NEGATIVE); LEUKOCYTE ESTERASE,URINE TRACE (NEGATIVE); NITRITE,URINE NEGATIVE (NEGATIVE); PROTEIN,URINE NEGATIVE (NEGATIVE); URINE SPECIFIC GRAVITY 1.013; UROBILINOGEN,URINE NEGATIVE mg/dL (<2.0)
[2020-03-30] MEDS ORDERED: DEXAMETHASONE SOD PHOS INJ 10 MG/1 ML VIAL IV ONE (06:45)
== END 2020-03-30 07:30 | disposition home or self-care (01) ==
LOC: ER 21:38
DX: R05 Cough (principal); J03.90 Acute tonsillitis, unspecified; E86.0 Dehydration; R11.10 Vomiting, unspecified; R09.81 Nasal congestion; R52 Pain, unspecified; F17.200 Nicotine dependence, unspecified, uncomplicated; Z98.51 Tubal ligation status; Z20.828 Contact with and (suspected) exposure to other viral communicable diseases
CPT/HCPCS: 99283; 96361; 96374; 96375; 36415; 87040; 87070; 87880; 84703; 85025; 87635; 86308; 80053; 81001; 71045; J1885; J2405; J7030; J1100; C9803

== ENCOUNTER 2020-05-07 08:33 | Day surgery (SDC) | payer MEDICAID ==
[~2020-05-07 08:33] MED LIST: DEXAMETHASONE SOD PHOS INJ 10 MG/1 ML VIAL ONE; FENTANYL CITRATE INJ/PF 100 MCG/2 ML AMPUL ONE; GLYCOPYRROLATE INJ 0.4 MG/2 ML VIAL ONE; LIDOCAINE 2% INJ-PF (100 MG/5 ML) SYRINGE ONE; MIDAZOLAM 2 MG/2 ML INJ ONE; ONDANSETRON HCL INJ/PF 4 MG/2 ML SDV ONE; PROPOFOL INJ 200 MG/20 ML VIAL IV ONE; SUCCINYLCHOLINE CHLORIDE INJ 200 MG/10 ML VIAL ONE
[2020-05-07] MEDS ORDERED: OXYMETAZOLINE HCL 0.05% NASAL SPRAY 15 ML BOTTLE ONE (09:18)
[2020-05-07] MEDS ORDERED: FAMOTIDINE INJ/PF 20 MG/2 ML SDV IV ONE (09:26)
--- NOTE | 2020-05-07 10:29 | Operative Report ---
Operative Report-[facility] Operative Report: Date: 07 May 2020 History: 40-year-old female with history of chronic/recurrent tonsillitis. Presents today for a tonsillectomy. Informed consent was obtained from the patient. Pre-operative diagnosis: 1. Chronic Tonsillitis Post operative diagnosis: Same as above Procedure: Tonsillectomy Surgeon: Nick Moss MD, FACS, [facility] Anesthesia: General via Endotrachreal intubation Procedure: After receiving informed consent, the patient was brought to the operating room and placed supine on the operating table. After successful induction and intubation by anesthesia the patient was turned 90 degrees and placed in Trendelenburg. A shoulder roll was placed along with a head drape. A McIvor mouth gag was inserted atraumatically into the oral cavity and opened up. The soft palate was palpated and found to be normal. Red rubber catheters were inserted down each nasal cavity and brought out to elevate the soft palate. Attention was then directed to the tonsils. The right tonsil was grasped with tenaculum and retracted medially. Using Bovie electrocautery the right tonsil was dissected free from its tonsillar fossa . Hemostasis was obtained using suction Bovie electrocautery. A similar procedure was performed on the left side. Both tonsils were removed. The tonsils were 3+. The oral pharynx and the oral cavity were irrigated with copious amounts of normal saline, without evidence of bleeding. An orogastric tube was inserted into the stomach to aspirate gastric contents. The McIvor mouthgag was then released and reopened, the surgical bed was dry without evidence of bleeding. The McIvor mouth gag along with the red catheters were removed from the patient. The patient was then returned back to anesthesia who successfully extubated the patient. Estimated blood loss: 10 mL Fluids: 500 mL The patient was then transported to the Post Anesthesia Care Unit in stable condition with spontaneous respiration. No complication.
[2020-05-07] MEDS ORDERED: ESMOLOL HCL INJ/PF 100 MG/10 ML SDV IV ONE (10:33)
[2020-05-07] MEDS: HYDROMORPHONE HCL INJ/PF 2 MG/ML AMPULE ONE ×3 (10:35→10:58)
== END 2020-05-07 10:52 | disposition home or self-care (01) ==
LOC: SC 08:33
PROVIDERS: ATTEND Otolaryngology
DX: J35.1 Hypertrophy of tonsils (principal); J35.8 Other chronic diseases of tonsils and adenoids; E11.9 Type 2 diabetes mellitus without complications; E66.9 Obesity, unspecified; Z03.818 Encounter for observation for suspected exposure to other biological agents ruled out
CPT/HCPCS: 82962; 87635; 88304 ×2; 42826; J2250; J3010; J2001; J1170; J3490 ×2; J0330; J2405; J2704; S0028; J1100; C9803; 170